=== PATIENT | male | born 1965 | race Caucasian/White ===

== ENCOUNTER → 2020-11-18 09:56 | Outpatient (BNVA) | payer OTHER, SELFPAY | PROVIDERS: Visit Provider Orthopaedic Surgery | DX: M17.11 Unilateral primary osteoarthritis, right knee (principal); M17.12 Unilateral primary osteoarthritis, left knee | CPT/HCPCS: 20610; 99202; J1040 ==

== ENCOUNTER → 2021-01-14 09:53 | Outpatient (BNVA) | payer OTHER, SELFPAY | PROVIDERS: PCP Internal Medicine; Visit Provider Orthopaedic Surgery | DX: Z01.812 Encounter for preprocedural laboratory examination (principal); Z01.810 Encounter for preprocedural cardiovascular examination ==

== ENCOUNTER 2021-02-11 12:57 | Outpatient (REF) | payer OTHER, SELFPAY ==
--- NOTE | ~2021-02-11 | XR_ITS ---
EXAMINATION: XR knee standing BI, XR knee LT 2V CLINICAL INFORMATION: Reason for Exam M25.561 - Pain in right knee COMPARISON: None available at the time of this dictation. TECHNIQUE: Bilateral frontal standing, left lateral and patella sunrise view. FINDINGS: BONES: No fracture or dislocation is present. JOINTS: Narrowing of joint spaces and developed osteophytes from the edges of articular surfaces suggest degenerative osteoarthritis. SOFT TISSUE: Normal XR/XR knee LT 2V IMPRESSION: Early advanced degenerative osteoarthritis involving medial more than lateral compartments left more than right knee. No significant knee joint effusion.
--- NOTE | ~2021-02-11 | XR_ITS ---
EXAMINATION: XR knee standing BI, XR knee LT 2V CLINICAL INFORMATION: Reason for Exam M25.561 - Pain in right knee COMPARISON: None available at the time of this dictation. TECHNIQUE: Bilateral frontal standing, left lateral and patella sunrise view. FINDINGS: BONES: No fracture or dislocation is present. JOINTS: Narrowing of joint spaces and developed osteophytes from the edges of articular surfaces suggest degenerative osteoarthritis. SOFT TISSUE: Normal XR/XR knee standing BI IMPRESSION: Early advanced degenerative osteoarthritis involving medial more than lateral compartments left more than right knee. No significant knee joint effusion.
== END 2021-02-11 12:58 | disposition home or self-care (01) ==
LOC: HO.HOSX 12:57
PROVIDERS: Visit Provider Physician Assistant
DX: M25.561 Pain in right knee (principal); M25.562 Pain in left knee; M17.0 Bilateral primary osteoarthritis of knee; E78.00 Pure hypercholesterolemia, unspecified; I10 Essential (primary) hypertension; E11.9 Type 2 diabetes mellitus without complications; Z91.030 Bee allergy status; Z87.891 Personal history of nicotine dependence
CPT/HCPCS: 73560; 73565; 99212

== ENCOUNTER 2021-02-13 11:00 | Outpatient (RCR) | payer OTHER, SELFPAY ==
--- NOTE | 2021-02-06 10:38 | MHC.PT.EP ---
[facility] [place] Office [place] Office [place] Office [address] Mily Mann [address] [phone] F: [phone] F: [phone] F: [phone] F: [phone] Physical Therapy Plan of Care Date of Evaluation: Date of Surgery: Diagnosis: prehab for OA L knee Assessment: 56 y/o male referred to PT with prehab for L knee OA. He is scheduled for L TKA 02/16/21. Currently he has difficulty with stairs, walking, and standing. Examination shows decreased knee AROM B, decreased strength, hypomobile patella, and impaired gait pattern. He would benefit from 1 more visit prior to his scheduled surgery in 10 days to review HEP, discuss PT expectations, and optimize functional mobility. Frequency and Duration: The patient will be seen 1x/1 week Short Term Goals: [facility] Goals: 1 visit: 1. I with HEP 2. Improve understanding of PT expectation for post-operative rehab Treatment Plan: Modalities to reduce pain, spasms and effusion. Manual therapy to restore motion and function. Therapeutic exercise to improve strength and flexibility. Neuromuscular re-education for posture and balance. Therapeutic activities to return to functional activities of daily living. Electronically signed by: Suad Hall PT Please sign and return to therapist. Thank you for your referral.
--- NOTE | 2021-02-13 11:24 | MHC.PT.DC ---
[facility] [place] Office [place] Office [place] Office [address] Mily Mann [address] [phone] F: [phone] F: [phone] F: [phone] F: [phone] Physical Therapy Discharge Report Diagnosis: prehab for OA L knee Date of Surgery: Date of Evaluation: 02/06/21 Date of Discharge: 02/13/21 Treatments to Date: 2 Cancellations to Date: 0 No Shows to Date: 0 Discharge Status: Independent with HEP Discharge Summary: Cues for eccentric control with SLR. We reviewed ice following surgery, elevation, and discussed stair management with up with the good and down with the bad. No adverse effects with exercises. D/c at this time as pt I with HEP and surgery scheduled in 3 days. Electronically signed by: Suad Hall PT Please sign and return to therapist. Thank you for your referral.
== END 2021-02-13 11:25 | disposition home or self-care (01) ==
LOC: HO.PTCHIC 11:00
PROVIDERS: PCP Internal Medicine; Visit Provider Orthopaedic Surgery
DX: M17.12 Unilateral primary osteoarthritis, left knee (principal)
CPT/HCPCS: 97110; 97161

== ENCOUNTER 2021-02-16 06:30 | Inpatient (IN) | payer OTHER, SELFPAY ==
--- NOTE | 2021-01-14 10:55 | ECG_ITS ---
Test Reason : PREOP Blood Pressure : / mmHG Vent. Rate : 064 BPM Atrial Rate : 064 BPM P-R Int : 140 ms QRS Dur : 100 ms QT Int : 412 ms P-R-T Axes : 039 032 040 degrees QTc Int : 425 ms Normal sinus rhythm Normal ECG When compared with ECG of 29-DEC-2011 20:09, No significant change was found Referred By: Olegario Instrsaqib Electronically Signed By:BETO CLINTON MD
[2021-01-14 11:47] LABS: MANUAL DIFF FLAG NO
[2021-01-14 11:54] LABS: Basophils Absolute Auto 0.1 X10*3/uL (0.0-0.2); Eosinophils Absolute Auto 0.1 X10*3/uL (0.0-0.4); Eosinophils Percent Auto 1.8 % (0-4); Hematocrit 46.1 % (42-52); Hemoglobin 15.3 g/dl (14.0-18.0); Imm Gran Abs Auto 0.01 X10*3/uL (0.00-0.03); Imm Gran Pct Auto 0.2 % (0.0-0.4); Lymphocytes Percent Auto 32.9 % (20-40); Mean Corpuscular HGB Conc 33.2 g/dl (31.0-36.0); Mean Corpuscular Hemoglobin 29.1 pg (27.0-33.0); Mean Corpuscular Volume 87.8 fL (80-98); Mean Platelet Volume 9.9 fL (9.4-12.4); Monocytes Absolute Auto 0.5 X10*3/uL (0.1-1.2); Monocytes Percent Auto 8.9 % (2-11); Neutrophils Absolute Auto 3.4 X10*3/uL (2.0-8.3); Neutrophils Percent Auto 55.2 % (45-73); Platelet Count 242 X10*3/uL (160-400); Red Blood Count 5.25 X10*6/uL (4.60-5.80); Red Cell Distribution Width 13.5 % (11.0-16.0); White Blood Count 6.1 X10*3/uL (4.8-10.8)
[2021-01-14 18:04] LABS: Anion Gap 11 (12-20); Blood Urea Nitrogen 14 mg/dL (9-16); Calcium 9.5 mg/dL (8.4-10.2); Carbon Dioxide 31 mmol/L (22-29); Chloride 103 mmol/L (96-108); Estimated Glomerular Filt Rate > 60; Glucose Random 81 mg/dL (60-115); Potassium 4.3 mmol/L (3.3-5.1); Sodium 141 mmol/L (135-145)
--- NOTE | 2021-02-12 10:06 | HO.ANESPROP2 ---
Documented by User: Dolores Walker 02/13/21 08:21 HPI - Anesthesia Eval Consult details Narrative: 56yo M for Left Knee Replacement Total prn opioids PCP cleared Pending: Type and Screen PMFSH Active Problems Active Problems: All Active Problems (Updated 02/11/21 @ 11:27 by Alyse Rushing) Primary osteoarthritis of right knee (Acute) Primary osteoarthritis of left knee (Acute) Past Medical History Medical History Bilateral primary osteoarthritis of knee Chronic pain syndrome Elevated cholesterol HTN (hypertension) Osteoarthritis Sleep apnea Type 2 diabetes mellitus Family History Family history of problems with anesthesia: No Surgical History Surgical History H/O bariatric surgery H/O colonoscopy Hx of appendectomy Hx of arthroscopic knee surgery Hx of foot surgery Hx of foot surgery Hx of hand surgery Hx of lumbar discectomy Hx of right inguinal hernia repair History of Problems with Anesthesia: No Social History Social History Are you a primary neurocritical care physician to a significant other at home: No Do you presently have visiting nurse or other home services: No Smoking Status: Former smoker Tobacco Type: Cigarette Years Smoked: 15 Smoked in Last 30 Days: No Smoking Quit Date: 2005 Use of substances other than those prescribed or required for medical reasons: No Have you been hit, kicked, punched, or otherwise hurt by someone within the past year? If so, by whom?: No Are you DNR?: No Advance Directives Information Provided: No Recently lost weight without trying: No Eating poorly because of decreased appetite: No Nutrition Risks: No Nutritional Risk Poor oral hygiene: No Current occupational status: unemployed Current occupation: Right Handed Narrative Narrative: No recent illness. No CP/SOB with minimal activity. Limited to pain. Meds Allergies Allergy/AdvReac Type Severity Reaction Status Date / Time bee pollen [BEE STINGS] Allergy Severe ANAPHYLACTIC Verified 02/16/21 06:58 SHOCK- CARRIES EPI PEN Home Medications Medication Instructions Recorded Confirmed Last Taken Type amitriptyline 25 mg tablet 25 mg PO BEDTIME 11/18/20 02/12/21 Unknown History citalopram 40 mg tablet 40 mg PO BEDTIME 11/18/20 02/12/21 Unknown History lisinopril 10 mg tablet 10 mg PO BEDTIME 11/18/20 02/12/21 Unknown History zolpidem 5 mg tablet 5 mg PO BEDTIME PRN 11/18/20 02/12/21 Unknown History epinephrine [EpiPen] 0.3 mg IM Q10M PRN 02/11/21 02/12/21 Unknown History tramadol 50 mg PO Q6H PRN 02/11/21 02/12/21 Unknown History atorvastatin 1 tab PO DAILY 02/16/21 02/16/21 Unknown History Exam Exam Date and Time: February 12, 2021 1006 Pertinent Lab Results Pertinent Lab Results: Lab Results 01/14/21 01/14/21 02/12/21 Range/Units 11:10 11:10 12:30 WBC 6.1 (4.8-10.8) X10*3/uL RBC 5.25 (4.60-5.80) X10*6/uL Hgb 15.3 (14.0-18.0) g/dl Hct 46.1 (42-52) % MCV 87.8 (80-98) fL MCH 29.1 (27.0-33.0) pg MCHC 33.2 (31.0-36.0) g/dl RDW 13.5 (11.0-16.0) % Plt Count 242 (160-400) X10*3/uL MPV 9.9 (9.4-12.4) fL Immature Gran % (Auto) 0.2 (0.0-0.4) % Neut % (Auto) 55.2 (45-73) % Lymph % (Auto) 32.9 (20-40) % [place] % (Auto) 8.9 (2-11) % Eos % (Auto) 1.8 (0-4) % Baso % (Auto) 1.0 (0-2) % Lymph # (Auto) 2.0 (1.2-4.9) X10*3/uL [place] # (Auto) 0.5 (0.1-1.2) X10*3/uL Eos # (Auto) 0.1 (0.0-0.4) X10*3/uL Baso # (Auto) 0.1 (0.0-0.2) X10*3/uL Abs Immat Gran (auto) 0.01 (0.00-0.03) X10*3/uL Absolute Neuts (auto) 3.4 (2.0-8.3) X10*3/uL Absolute Nucleated RBC 0.000 (0.0-0.012) X10*3/uL Nucleated RBC % (auto) 0.0 (0.0-0.2) /100WBC Sodium 141 (135-145) mmol/L Potassium 4.3 (3.3-5.1) mmol/L Chloride 103 (96-108) mmol/L Carbon Dioxide 31 H (22-29) mmol/L Anion Gap 11 L (12-20) BUN 14 (9-16) mg/dL Creatinine 0.73 (0.5-1.4) mg/dL Estim Creat Clear Calc TNP Estimated GFR > 60 Random Glucose 81 (60-115) mg/dL Calcium 9.5 (8.4-10.2) mg/dL Nasal Screen MRSA (PCR) NEGATIVE (Negative) Nasal S. aureus Screen POSITIVE A (Negative) Nasal MRSA/S.aureus Interp SEE NOTE Blood Type Antibody Screen 02/12/21 Range/Units 13:04 WBC (4.8-10.8) X10*3/uL RBC (4.60-5.80) X10*6/uL Hgb (14.0-18.0) g/dl Hct (42-52) % MCV (80-98) fL MCH (27.0-33.0) pg MCHC (31.0-36.0) g/dl RDW (11.0-16.0) % Plt Count (160-400) X10*3/uL MPV (9.4-12.4) fL Immature Gran % (Auto) (0.0-0.4) % Neut % (Auto) (45-73) % Lymph % (Auto) (20-40) % [place] % (Auto) (2-11) % Eos % (Auto) (0-4) % Baso % (Auto) (0-2) % Lymph # (Auto) (1.2-4.9) X10*3/uL [place] # (Auto) (0.1-1.2) X10*3/uL Eos # (Auto) (0.0-0.4) X10*3/uL Baso # (Auto) (0.0-0.2) X10*3/uL Abs Immat Gran (auto) (0.00-0.03) X10*3/uL Absolute Neuts (auto) (2.0-8.3) X10*3/uL Absolute Nucleated RBC (0.0-0.012) X10*3/uL Nucleated RBC % (auto) (0.0-0.2) /100WBC Sodium (135-145) mmol/L Potassium (3.3-5.1) mmol/L Chloride (96-108) mmol/L Carbon Dioxide (22-29) mmol/L Anion Gap (12-20) BUN (9-16) mg/dL Creatinine (0.5-1.4) mg/dL Estim Creat Clear Calc Estimated GFR Random Glucose (60-115) mg/dL Calcium (8.4-10.2) mg/dL Nasal Screen MRSA (PCR) (Negative) Nasal S. aureus Screen (Negative) Nasal MRSA/S.aureus Interp Blood Type O Positive Antibody Screen NEGATIVE Narrative Narrative: EKG 01/2021 Vent. Rate : 064 BPM Atrial Rate : 064 BPM P-R Int : 140 ms QRS Dur : 100 ms QT Int : 412 ms P-R-T Axes : 039 032 040 degrees QTc Int : 425 ms Normal sinus rhythm Normal ECG When compared with ECG of 29-DEC-2011 20:09, No significant change was found Airway Mallampati Class: III TM Dist: >3cm Neck ROM: Full Loose/Missing/Broken Teeth: Yes (Missing molars) Heart: RRR Lungs: CTAB Assessment and Plan Assessment Anesthesia Assessment: Anesthesia Plan Discussed and PAT Visit Documented by User: Pamela Olvera 02/16/21 07:07 [facility] Past Medical History Medical History Bilateral primary osteoarthritis of knee Chronic pain syndrome Elevated cholesterol HTN (hypertension) Osteoarthritis Sleep apnea Type 2 diabetes mellitus Surgical History Surgical History H/O bariatric surgery H/O colonoscopy Hx of appendectomy Hx of arthroscopic knee surgery Hx of foot surgery Hx of foot surgery Hx of hand surgery Hx of lumbar discectomy Hx of right inguinal hernia repair Social History Social History Are you a primary neurocritical care physician to a significant other at home: No Do you presently have visiting nurse or other home services: No Smoking Status: Former smoker Tobacco Type: Cigarette Years Smoked: 15 Smoked in Last 30 Days: No Smoking Quit Date: 2005 Use of substances other than those prescribed or required for medical reasons: No Have you been hit, kicked, punched, or otherwise hurt by someone within the past year? If so, by whom?: No Are you DNR?: No Advance Directives Information Provided: No Recently lost weight without trying: No Eating poorly because of decreased appetite: No Nutrition Risks: No Nutritional Risk Poor oral hygiene: No Current occupational status: unemployed Current occupation: Right Handed Meds Allergies Allergy/AdvReac Type Severity Reaction Status Date / Time bee pollen [BEE STINGS] Allergy Severe ANAPHYLACTIC Verified 02/16/21 06:58 SHOCK- CARRIES EPI PEN Home Medications Medication Instructions Recorded Confirmed Last Taken Type amitriptyline 25 mg tablet 25 mg PO BEDTIME 11/18/20 02/12/21 Unknown History citalopram 40 mg tablet 40 mg PO BEDTIME 11/18/20 02/12/21 Unknown History lisinopril 10 mg tablet 10 mg PO BEDTIME 11/18/20 02/12/21 Unknown History zolpidem 5 mg tablet 5 mg PO BEDTIME PRN 11/18/20 02/12/21 Unknown History epinephrine [EpiPen] 0.3 mg IM Q10M PRN 02/11/21 02/12/21 Unknown History tramadol 50 mg PO Q6H PRN 02/11/21 02/12/21 Unknown History atorvastatin 1 tab PO DAILY 02/16/21 02/16/21 Unknown History Assessment and Plan Assessment Anesthesia Assessment: Anesthesia Plan Discussed and Chart Reviewed Final Anesthetic Review NPO: Yes ASA Class: III Final Preanesthetic Review: No Changes in Pt Med Stat, Meds/Allgs Chart Reviewed, Consent Obtained/Reviewed and Anes Risks/Benef Reviewed Patient Risk: Intermediate Procedure Risk: Intermediate Assessment/Block/Sedation in SS: Assess/Block/Sedation-SS Anesthetic Plan Anesthetic Plan: Spinal Disposition: Standard PACU
[2021-02-12 11:59] VITALS: BP 121/71; PULSE 68; RESP 18; O2SAT 97; BMI 43.0
[2021-02-12 15:26] LABS: MRSA Nasal PCR NEGATIVE (Negative); SA Nasal PCR POSITIVE (Negative)
[2021-02-16] VITALS (15 sets, daily range): BP systolic 100–121; BP diastolic 53–66; PULSE 55–84; RESP 14–20; TEMP 36–36.7; O2SAT 94–99
--- NOTE | ~2021-02-16 | XR_ITS ---
EXAMINATION: XR KNEE, LEFT CLINICAL INFORMATION: Postop COMPARISON: Previous x-ray 02/11/2021 TECHNIQUE: Four views of the left knee. FINDINGS: There is a new 3 component left knee replacement in satisfactory position. No fracture or dislocation is seen. There is a joint effusion. There are postoperative changes to the soft tissues. XR/XR knee LT 2V IMPRESSION: Satisfactory appearance of left knee replacement.
[2021-02-16] MEDS: Gabapentin 600 MG TABLET PO (06:52)
[2021-02-16 07:08] LABS: COVID-19 Test Negative (Negative)
--- NOTE | 2021-02-16 07:10 | HO.ANESPROP2 ---
PENDING SALE TO [facility] Active Problems Active Problems: All Active Problems (Updated 02/12/21 @ 12:10 by Alyse Rushing) Primary osteoarthritis of right knee (Acute) Primary osteoarthritis of left knee (Acute) Past Medical History Medical History Bilateral primary osteoarthritis of knee Chronic pain syndrome Elevated cholesterol HTN (hypertension) Osteoarthritis Sleep apnea Type 2 diabetes mellitus Family History Family history of problems with anesthesia: No Surgical History Surgical History H/O bariatric surgery H/O colonoscopy Hx of appendectomy Hx of arthroscopic knee surgery Hx of foot surgery Hx of foot surgery Hx of hand surgery Hx of lumbar discectomy Hx of right inguinal hernia repair History of Problems with Anesthesia: No Social History Social History Are you a primary patient care manager to a significant other at home: No Do you presently have visiting nurse or other home services: No Smoking Status: Former smoker Tobacco Type: Cigarette Years Smoked: 15 Smoked in Last 30 Days: No Smoking Quit Date: 2005 Use of substances other than those prescribed or required for medical reasons: No Have you been hit, kicked, punched, or otherwise hurt by someone within the past year? If so, by whom?: No Are you DNR?: No Advance Directives Information Provided: No Recently lost weight without trying: No Eating poorly because of decreased appetite: No Nutrition Risks: No Nutritional Risk Poor oral hygiene: No Current occupational status: unemployed Current occupation: Right Handed Meds Allergies Allergy/AdvReac Type Severity Reaction Status Date / Time bee pollen [BEE STINGS] Allergy Severe ANAPHYLACTIC Verified 02/16/21 06:58 SHOCK- CARRIES EPI PEN Active Medications: Current Medications Generic Name Dose Route Start Last Admin Trade Name Freq PRN Reason Stop Dose Admin Lactated Ringer's 1,000 mls @ 100 mls/hr 02/16/21 06:30 Lr IVCONT .Q10H [facility] Home Medications Medication Instructions Recorded Confirmed Last Taken Type amitriptyline 25 mg tablet 25 mg PO BEDTIME 11/18/20 02/12/21 Unknown History citalopram 40 mg tablet 40 mg PO BEDTIME 11/18/20 02/12/21 Unknown History lisinopril 10 mg tablet 10 mg PO BEDTIME 11/18/20 02/12/21 Unknown History zolpidem 5 mg tablet 5 mg PO BEDTIME PRN 11/18/20 02/12/21 Unknown History epinephrine [EpiPen] 0.3 mg IM Q10M PRN 02/11/21 02/12/21 Unknown History tramadol 50 mg PO Q6H PRN 02/11/21 02/12/21 Unknown History atorvastatin 1 tab PO DAILY 02/16/21 02/16/21 Unknown History Exam Exam Date and Time: February 16, 2021 0710 Height,Weight and Vital Signs: Height 6 ft 3 in Weight 156.2 kg Last Vital Signs Temp 97.3 F 02/16/21 06:55 Pulse 65 02/16/21 06:55 Resp 16 02/16/21 06:55 BP 119/65 02/16/21 06:55 Pulse Ox 97 02/16/21 06:55 Pertinent Lab Results Pertinent Lab Results: Laboratory Tests 01/14/21 01/14/21 02/12/21 11:10 11:10 12:30 WBC 6.1 RBC 5.25 Hgb 15.3 Hct 46.1 MCV 87.8 MCH 29.1 MCHC 33.2 RDW 13.5 Plt Count 242 MPV 9.9 Immature Gran % (Auto) 0.2 Neut % (Auto) 55.2 Lymph % (Auto) 32.9 [place] % (Auto) 8.9 Eos % (Auto) 1.8 Baso % (Auto) 1.0 Lymph # (Auto) 2.0 [place] # (Auto) 0.5 Eos # (Auto) 0.1 Baso # (Auto) 0.1 Abs Immat Gran (auto) 0.01 Absolute Neuts (auto) 3.4 Absolute Nucleated RBC 0.000 Nucleated RBC % (auto) 0.0 Sodium 141 Potassium 4.3 Chloride 103 Carbon Dioxide 31 H Anion Gap 11 L BUN 14 Creatinine 0.73 Estim Creat Clear Calc TNP Estimated GFR > 60 Random Glucose 81 Calcium 9.5 Nasal Screen MRSA (PCR) NEGATIVE Nasal S. aureus Screen POSITIVE A Nasal MRSA/S.aureus Interp SEE NOTE COVID-19 (CALE) COVID-19 Clin Com Blood Type Antibody Screen 02/12/21 02/16/21 13:04 06:38 WBC RBC Hgb Hct MCV MCH MCHC RDW Plt Count MPV Immature Gran % (Auto) Neut % (Auto) Lymph % (Auto) [place] % (Auto) Eos % (Auto) Baso % (Auto) Lymph # (Auto) [place] # (Auto) Eos # (Auto) Baso # (Auto) Abs Immat Gran (auto) Absolute Neuts (auto) Absolute Nucleated RBC Nucleated RBC % (auto) Sodium Potassium Chloride Carbon Dioxide Anion Gap BUN Creatinine Estim Creat Clear Calc Estimated GFR Random Glucose Calcium Nasal Screen MRSA (PCR) Nasal S. aureus Screen Nasal MRSA/S.aureus Interp COVID-19 (CALE) Negative COVID-19 Clin Com See Note Blood Type O Positive Antibody Screen NEGATIVE
--- NOTE | 2021-02-16 07:13 | HO.ANESPROP2 ---
[facility] Active Problems Active Problems: All Active Problems (Updated 02/12/21 @ 12:10 by Alyse Rushing) Primary osteoarthritis of right knee (Acute) Primary osteoarthritis of left knee (Acute) Past Medical History Medical History Bilateral primary osteoarthritis of knee Chronic pain syndrome Elevated cholesterol HTN (hypertension) Osteoarthritis Sleep apnea Type 2 diabetes mellitus Family History Family history of problems with anesthesia: No Surgical History Surgical History H/O bariatric surgery H/O colonoscopy Hx of appendectomy Hx of arthroscopic knee surgery Hx of foot surgery Hx of foot surgery Hx of hand surgery Hx of lumbar discectomy Hx of right inguinal hernia repair History of Problems with Anesthesia: No Social History Social History Are you a primary vocational childcare teacher to a significant other at home: No Do you presently have visiting nurse or other home services: No Smoking Status: Former smoker Tobacco Type: Cigarette Years Smoked: 15 Smoked in Last 30 Days: No Smoking Quit Date: 2005 Use of substances other than those prescribed or required for medical reasons: No Have you been hit, kicked, punched, or otherwise hurt by someone within the past year? If so, by whom?: No Are you DNR?: No Advance Directives Information Provided: No Recently lost weight without trying: No Eating poorly because of decreased appetite: No Nutrition Risks: No Nutritional Risk Poor oral hygiene: No Current occupational status: unemployed Current occupation: Right Handed Meds Allergies Allergy/AdvReac Type Severity Reaction Status Date / Time bee pollen [BEE STINGS] Allergy Severe ANAPHYLACTIC Verified 02/16/21 06:58 SHOCK- CARRIES EPI PEN Active Medications: Current Medications Generic Name Dose Route Start Last Admin Trade Name Freq PRN Reason Stop Dose Admin Lactated Ringer's 1,000 mls @ 100 mls/hr 02/16/21 06:30 Lr IVCONT .Q10H [facility] Home Medications Medication Instructions Recorded Confirmed Last Taken Type amitriptyline 25 mg tablet 25 mg PO BEDTIME 11/18/20 02/12/21 Unknown History citalopram 40 mg tablet 40 mg PO BEDTIME 11/18/20 02/12/21 Unknown History lisinopril 10 mg tablet 10 mg PO BEDTIME 11/18/20 02/12/21 Unknown History zolpidem 5 mg tablet 5 mg PO BEDTIME PRN 11/18/20 02/12/21 Unknown History epinephrine [EpiPen] 0.3 mg IM Q10M PRN 02/11/21 02/12/21 Unknown History tramadol 50 mg PO Q6H PRN 02/11/21 02/12/21 Unknown History atorvastatin 1 tab PO DAILY 02/16/21 02/16/21 Unknown History Exam Exam Date and Time: February 16, 2021712 Height,Weight and Vital Signs: Height 6 ft 3 in Weight 156.2 kg Last Vital Signs Temp 97.3 F 02/16/21 06:55 Pulse 65 02/16/21 06:55 Resp 16 02/16/21 06:55 BP 119/65 02/16/21 06:55 Pulse Ox 97 02/16/21 06:55 Pertinent Lab Results Pertinent Lab Results: Laboratory Tests 01/14/21 01/14/21 02/12/21 11:10 11:10 12:30 WBC 6.1 RBC 5.25 Hgb 15.3 Hct 46.1 MCV 87.8 MCH 29.1 MCHC 33.2 RDW 13.5 Plt Count 242 MPV 9.9 Immature Gran % (Auto) 0.2 Neut % (Auto) 55.2 Lymph % (Auto) 32.9 [place] % (Auto) 8.9 Eos % (Auto) 1.8 Baso % (Auto) 1.0 Lymph # (Auto) 2.0 [place] # (Auto) 0.5 Eos # (Auto) 0.1 Baso # (Auto) 0.1 Abs Immat Gran (auto) 0.01 Absolute Neuts (auto) 3.4 Absolute Nucleated RBC 0.000 Nucleated RBC % (auto) 0.0 Sodium 141 Potassium 4.3 Chloride 103 Carbon Dioxide 31 H Anion Gap 11 L BUN 14 Creatinine 0.73 Estim Creat Clear Calc TNP Estimated GFR > 60 Random Glucose 81 Calcium 9.5 Nasal Screen MRSA (PCR) NEGATIVE Nasal S. aureus Screen POSITIVE A Nasal MRSA/S.aureus Interp SEE NOTE COVID-19 (CALE) COVID-19 Clin Com Blood Type Antibody Screen 02/12/21 02/16/21 13:04 06:38 WBC RBC Hgb Hct MCV MCH MCHC RDW Plt Count MPV Immature Gran % (Auto) Neut % (Auto) Lymph % (Auto) [place] % (Auto) Eos % (Auto) Baso % (Auto) Lymph # (Auto) [place] # (Auto) Eos # (Auto) Baso # (Auto) Abs Immat Gran (auto) Absolute Neuts (auto) Absolute Nucleated RBC Nucleated RBC % (auto) Sodium Potassium Chloride Carbon Dioxide Anion Gap BUN Creatinine Estim Creat Clear Calc Estimated GFR Random Glucose Calcium Nasal Screen MRSA (PCR) Nasal S. aureus Screen Nasal MRSA/S.aureus Interp COVID-19 (CALE) Negative COVID-19 Clin Com See Note Blood Type O Positive Antibody Screen NEGATIVE
[2021-02-16] MEDS: Lactated Ringers 1,000 ML 100 ML IVCONT ×3 (07:17→20:31)
[2021-02-16 07:59] LABS: Glucose, Whole Blood 92 mg/dL (60-115)
--- NOTE | 2021-02-16 11:23 | PC.NURSE ---
1100 BED ASSIGNMENT RECEIVED REPORT FAXED TO FLOOR AND REPORT TO GERHARD ALCALA PT TO FLOOR ACCOMP RN AND ARNAUD
[2021-02-16] MEDS: oxyCODONE HCl Immed Release 5 MG TABLET 10 MG PO ×2 (11:49→18:36)
[2021-02-16] MEDS: Ketorolac Tromethamine 15 MG/ML VIAL IVPUSH ×2 (11:50→18:27)
--- NOTE | 2021-02-16 12:08 | P.OP_ITS ---
Operative Note Operative Note Date of Service: 02/16/21 Narrative: SURGEON: Dr Olegario Ch) Renetta CHU BACKEND PYTHON DEVELOPER: Mihai Montez PAC PREOP DIAGNOSIS: Osteoarthritis left knee POSTOP DIAGNOSIS: Same OPERATIVE PROCEDURE: Left Total knee arthroplasty - KRYSTLE NEXGEN CRFlex size G left femur, 7 x 10 mm monoblock tibial component, 38 mm Mar block tibial component CLINICAL NOTE: This individual comes in today in regards to their knee. Has osteoarthritis. Has failed non operative management. Therefore after explaining the risks benefits and alternatives and answering all the questions it was mutually agreed upon care following procedure OPERATIVE DETAILS With of regional and spinal anesthetic the patient was placed supine on the operating table. Pneumatic tourniquet cuff was placed around the upper thigh and inflated to 300 mm of mercury at the beginning of the case. The leg was then prepped and draped in standard fashion with the leg free. Surgical time-out was then performed. The patient was identified. Procedure confirmed. Site confirmed. Medical and allergy history reviewed. Preoperative antibiotics were given. Standard DVT prophylaxis in place. Tranexamic acid was given as well. All other items were discussed and agreed upon. Standard small midline incision was made. Was taken down through the subcutaneous tissues. Hemostasis achieved along the way using electrocautery. This brought us to the extensor mechanism where a medial parapatellar arthrotomy in a subvastus technique was performed. The patella was retracted into the lateral gutter. The soft tissues were elevated from the anterior aspect of the femur. At the level of the tibia the soft tissue elevated medially excising a portion of the meniscus as well as protecting the medial-sided soft tissues. Similarly on the lateral side a portion of the fat pad, portion of the meniscus were excised. The lateral-sided soft tissues were elevated protecting them as well. The ACL was resected. We turned our attention then to the femur. Standard ex to medullary hole was established. The cutting guide was set for 5 degrees of valgus with a standard cut. It was held in place with pins and the surface resected flat. The sizing guide was then used. The femur was sized to a size G. The 3 degree external rotation pins were set. The all in 1 cutting guide for this size was placed the pins and centered over the distal cut. Following this the anterior and anterior chamfer cuts, the posterior and pos terior chamfer cuts, the patellar recess cuts, as well as the lug holes were made. The guide was removed. The bony fragments removed and we turned our attention to the tibia. The remainder of the medial and lateral menisci were excised. The extramedullary guide was then used in standard fashion referencing the tibial tubercle, the subcutaneous border of the tibia, and the middle of the ankle. The slope was then set. The cut was referenced from the more worn size for a minimal cut. The surface was then resected. The bony segment removed. The tibia was then trialed to a size 7. It was aligned as the extra medullary guide had been. A 10 mm trial insert was put into place. The femoral trial was also applied with good fit. The alignment of the leg was excellent. The knee was then placed through a range of motion which demonstrated full extension full flexion stable medially and laterally at 0, 30, 60, and 90 degrees of flexion. Patella tracked centrally. Turning our attention to the patella. The soft tissues were elevated circumferentially. The surface was resected flat. It sized to a 38 mm. A lug hole was drilled in standard The trial component was put into place with excellent fit. It tracked nicely through flexion extension. Therefore the trial sizes were appropriate and therefore the permanent components were selected and brought up onto the table. The trial components were then all removed after the peg holes for the tibia were made. The tourniquet was then let down with total tourniquet time of 63 minutes. The area of the lateral geniculate artery was identified and cauterized. Any excessive bleeding points were also cauterized. The knee was then thoroughly irrigated. The permanent components were brought up onto the table. The tibia followed by the femur followed by the patella were all Press- Fit into place. The knee was placed through range of motion. It had full flexion and extension. He was stable medial laterally in all positions. Patella tracked centrally. And therefore we proceeded to closure. Wound was thoroughly irrigated. The extensor mechanism was closed with #2 Quill suture. The skin was approximated with 2-0 Polysorb suture. The skin was closed with lamonte. Sterile dressing was then applied. The patient was then transferred supine to the room bed and taken to the recovery room in good condition. Intraoperatively a 2nd unit a transit make acid was given at the time of closure. There was approximately 150 cc a blood loss. No intraop transfusions or complications. .
[2021-02-16] MEDS: Morphine Sulfate 4 MG/ML CARTRIDGE 3 MG IVPUSH ×2 (14:12→23:17)
[2021-02-16] MEDS: ceFAZolin Sodium/Dextrose,Iso 2 GM/50 ML PIGGYBACK IV (14:12)
[2021-02-16] MEDS: ondansetron HCL 4 MG/2 ML VIAL IVPUSH (15:53)
--- NOTE | 2021-02-16 16:42 | PM.IMCN ---
History of Present Illness Data of Consult Service Date: 02/16/21 Requesting physician: Olegario Jackson Primary Care Provider: Brennan Garza MD HPI Reason for consult: management of medical comorbidities 56yo M with morbid obesity s/p sleeve gastrectomy, HTN, HLD, DM2 that resolved after bariatric surgery, CLARITA on CPAP, and depression/anxiety who underwent L TKA today for OA. He denies hx of CAD/LA/CVA or chronic lung disease. Currently he has postoperative pain and some nausea after getting IV morphine. He denies chest pain or dyspnea. No abdominal pain. Review of Systems Review of Systems: Yes all other systems are reviewed and are negative [facility] Medical History (Updated 02/16/21 @ 16:45 by Irlanda Coppola MD) Bilateral primary osteoarthritis of knee Chronic pain syndrome Elevated cholesterol HTN (hypertension) Osteoarthritis Sleep apnea Type 2 diabetes mellitus Pertinent family history: no FHx of VTE Surgical History H/O bariatric surgery H/O colonoscopy Hx of appendectomy Hx of arthroscopic knee surgery Hx of foot surgery Hx of foot surgery Hx of hand surgery Hx of lumbar discectomy Hx of right inguinal hernia repair Social History Household Members: Family Housing: House Are you a primary clinical care manager to a significant other at home: No Do you presently have visiting nurse or other home services: No Smoking Status: Former smoker Tobacco Type: Cigarette Years Smoked: 15 Smoked in Last 30 Days: No Smoking Quit Date: 2005 Use of substances other than those prescribed or required for medical reasons: No Have you been hit, kicked, punched, or otherwise hurt by someone within the past year? If so, by whom?: No Do you feel safe in your current relationship?: No Current Relationship Is there a partner from a previous relationship who is making you feel unsafe now?: No Are you made to feel afraid or neglected: No Are you DNR?: No Advance Directives Information Provided: No Do you have thoughts of harming others: None Do you have a plan to hurt others: No Plan Recently lost weight without trying: No Eating poorly because of decreased appetite: No Nutrition Risks: No Nutritional Risk Poor oral hygiene: No Current occupational status: unemployed Current occupation: Right Handed Meds Allergies Allergy/AdvReac Type Severity Reaction Status Date / Time bee pollen [BEE STINGS] Allergy Severe ANAPHYLACTIC Verified 02/16/21 06:58 SHOCK- CARRIES EPI PEN Active Medications: Current Medications Generic Name Dose Route Start Last Admin Trade Name Freq PRN Reason Stop Dose Admin Acetaminophen 650 mg 02/16/21 11:23 Acetaminophen 325 Mg Tablet PO Q6H PRN Pain, Mild (Pain Scale 1-3) Amitriptyline HCl 25 mg 02/16/21 21:00 Amitriptyline Hcl 25 Mg Tablet PO BEDTIME [facility] Aspirin 325 mg 02/17/21 22:00 Aspirin 325 Mg Tablet PO BID [facility] Atorvastatin Calcium 20 mg 02/17/21 09:00 Atorvastatin Calcium 20 Mg Tablet PO DAILY [facility] Lactated Ringer's 1,000 mls @ 100 mls/hr 02/16/21 06:30 02/16/21 16:35 Lr IVCONT Not Given .Q10H [facility] Ketorolac Tromethamine 15 mg 02/16/21 12:00 02/16/21 11:50 Ketorolac Tromethamine 15 Mg/Ml Vial IVPUSH 15 mg Q6H [facility] Administration Lisinopril 10 mg 02/16/21 21:00 Lisinopril 10 Mg Tablet PO BEDTIME [facility] Protocol Morphine Sulfate 3 mg 02/16/21 11:23 02/16/21 14:12 Morphine Sulfate 4 Mg/Ml Cartridge IVPUSH 3 mg Q2H PRN Administration Pain, Severe (Pain Scale 7-10) Naloxone HCl 0.2 mg 02/16/21 11:23 Naloxone Hcl 0.4 Mg/Ml Vial IVPUSH Q2M PRN Excessive sedation or RR < 8 Ondansetron HCl 4 mg 02/16/21 11:23 02/16/21 15:53 Ondansetron Hcl 4 Mg/2 Ml Vial IVPUSH 4 mg Q8H PRN Administration Nausea and Vomiting Oxycodone HCl 10 mg 02/16/21 12:00 02/16/21 11:49 Oxycodone Hcl Immed Release 5 Mg Tablet PO 10 mg Q6H [facility] Administration Sodium Chloride 3 ml 02/16/21 16:00 02/16/21 14:52 0.9 % Sodium Chloride Flush 3 Ml Syringe IVFLUSH Not Given QSHIFT [facility] Zolpidem Tartrate 5 mg 02/16/21 16:40 Zolpidem Tartrate 5 Mg Tablet PO BEDTIME PRN Insomnia Home Medications Medication Instructions Recorded Confirmed Last Taken Type amitriptyline 25 mg tablet 25 mg PO BEDTIME 11/18/20 02/12/21 Unknown History citalopram 40 mg tablet 40 mg PO BEDTIME 11/18/20 02/12/21 Unknown History lisinopril 10 mg tablet 10 mg PO BEDTIME 11/18/20 02/12/21 Unknown History zolpidem 5 mg tablet 5 mg PO BEDTIME PRN 11/18/20 02/12/21 Unknown History epinephrine [EpiPen] 0.3 mg IM Q10M PRN 02/11/21 02/12/21 Unknown History tramadol 50 mg PO Q6H PRN 02/11/21 02/12/21 Unknown History atorvastatin 1 tab PO DAILY 02/16/21 02/16/21 Unknown History Physical Exam Vital Signs and Narrative: Vital Signs: Last Vital Signs Temp 96.8 F 02/16/21 15:53 Pulse 66 02/16/21 15:53 Resp 20 02/16/21 15:53 BP 104/58 L 02/16/21 15:53 Pulse Ox 96 02/16/21 15:53 Body Mass Index 43.0 Gen: in no acute distress HEENT: sclera anicteric, moist mucus membranes Neck: supple Lungs: clear to auscultation bilaterally Heart: regular rate and rhythm, no murmurs Abd: soft, obese, non-tender, non-distended Ext: no edema, L knee swollen and in dressing Skin: warm/well-perfused Neuro: alert and oriented x3, no focal findings Psych: appropriate affect Results Labs CBC and Chem 7: 01/14/21 11:10 01/14/21 11:10 Labs: Laboratory Results - last 24 hr 02/16/21 02/16/21 06:38 07:03 POC Glucose 92 COVID-19 ([facility]) Negative COVID-19 Clin Com See Note Assessment and Plan (1) HTN (hypertension): Status: Acute 56yo M with morbid obesity s/p sleeve gastrectomy, HTN, HLD, DM2 that resolved after bariatric surgery, CLARITA on CPAP, and depression/anxiety POD #0 L TKA for OA. Medicine consultation for management of comorbid problems # HTN - resume lisinopril # depression/anxiety - continue citalopram [hospital formulary substitute escitalopram], amitriptyline, prn zolpidem # HLD - continue atorvastatin # morbid obesity - lost 70 lb after sleeve gastrectomy in July # CLARITA - CPAP at night # hx DM2 - resolved after sleeve gastrectomy # VTE ppx - full-dose ASA bid as per orthopedics team; will need 28+d of extended ppx # postop TKA - analgesia, PT, dispo planning as per orthopedics team Thank you for this consult. We will follow along with you.
[2021-02-16] MEDS: Amitriptyline HCl 25 MG TABLET PO (20:27)
[2021-02-16] MEDS: Zolpidem Tartrate 5 MG TABLET PO (20:27)
[2021-02-16] MEDS: lisinopriL 10 MG TABLET PO (20:27)
[2021-02-17] VITALS (9 sets, daily range): BP systolic 101–115; BP diastolic 47–64; PULSE 70–83; RESP 19–20; TEMP 36.4–37.4; O2SAT 95–97
[2021-02-17] MEDS: Ketorolac Tromethamine 15 MG/ML VIAL IVPUSH ×5 (00:04→23:35)
[2021-02-17] MEDS: oxyCODONE HCl Immed Release 5 MG TABLET 10 MG PO ×5 (00:05→23:36)
[2021-02-17] MEDS: Lactated Ringers 1,000 ML 100 ML IVCONT (06:04)
[2021-02-17 06:43] LABS: Hematocrit 33.2 % (42-52); Hemoglobin 11.2 g/dl (14.0-18.0)
[2021-02-17] MEDS: Escitalopram Oxalate 20 MG TABLET PO (08:18)
[2021-02-17] MEDS: Atorvastatin Calcium 20 MG TABLET PO (08:18)
--- NOTE | 2021-02-17 08:30 | HO.POSTANES ---
Post Anesthesia Evaluation Post Anesthesia Evaluation Vital Signs: Vital Signs Temp Pulse Resp BP Pulse Ox 02/17/21 08:21 74 109/55 L 95 02/17/21 08:00 98.2 F 74 19 109/55 L 95 02/17/21 07:17 98.2 F 74 19 109/55 L 95 02/17/21 03:53 98.0 F 70 20 111/64 96 02/16/21 23:28 97.7 F 71 20 113/54 L 96 02/16/21 21:21 18 Anesthesia: Spinal Mental Status: Awake Pain Control: Satisfactory Nausea/Vomiting: None Hydration: Adequate Anesthesia-Related Issues: No Anes. Related Issues
[2021-02-17] MEDS: Morphine Sulfate 4 MG/ML CARTRIDGE 3 MG IVPUSH ×3 (08:38→19:58)
--- NOTE | 2021-02-17 09:59 | PM.PNORT ---
Subjective Subjective Date of Service: 02/17/21 Interval history: POD 1 s/p LT TKA No overnight events, resting in bed c/o pain in the left knee has been out of bed to use bathroom, denies cp,sob,dizziness Physical Exam Vital Signs: Vital Signs: Last Vital Signs Temp 98.2 F 02/17/21 08:00 Pulse 74 02/17/21 08:21 Resp 19 02/17/21 08:00 BP 109/55 L 02/17/21 08:21 Pulse Ox 95 02/17/21 08:21 Body Mass Index 43.0 Const: General: cooperative, healthy appearing and no acute distress Resp: Effort & Inspection: normal respiratory effort and able to speak in complete sentences Cardio: Rate: regular rate Peripheral pulses: Peripheral pulses 2+ throughout GI: Palpation (GI): Soft to palpation Skin: General skin exam: no rashes or lesions noted Extrem: Other: left knee bandage clean dry and intact. [place] intact. No erythema or joint effusion. Calf supple nontender. Neurovascularly intact. Progress Note: A&P Assessment and plan (1) Status post total left knee replacement: Status: Acute Assessment and Plan: Continue pain mgmnt Begin asa for dvt ppx begin PT for LT TKA Dispo planning-Pending PT eval, pain mgmnt Fall Risk Details Current Medications: Current Medications Generic Name Dose Route Start Last Admin Trade Name Freq PRN Reason Stop Dose Admin Acetaminophen 650 mg 02/16/21 11:23 Acetaminophen 325 Mg Tablet PO Q6H PRN Pain, Mild (Pain Scale 1-3) Amitriptyline HCl 25 mg 02/16/21 21:00 02/16/21 20:27 Amitriptyline Hcl 25 Mg Tablet PO 25 mg BEDTIME [facility] Administration Aspirin 325 mg 02/17/21 22:00 Aspirin 325 Mg Tablet PO BID [facility] Atorvastatin Calcium 20 mg 02/17/21 09:00 02/17/21 08:18 Atorvastatin Calcium 20 Mg Tablet PO 20 mg DAILY [facility] Administration Escitalopram Oxalate 20 mg 02/17/21 09:00 02/17/21 08:18 Escitalopram Oxalate 20 Mg Tablet PO 20 mg DAILY [facility] Administration Lactated Ringer's 1,000 mls @ 100 mls/hr 02/16/21 06:30 02/17/21 06:04 Lr IVCONT 100 mls/hr .Q10H [facility] Administration Promethazine HCl 6.25 mg/ 50.25 mls @ 201 mls/hr 02/16/21 18:15 02/16/21 18:47 Sodium Chloride IV Infused Q4H PRN Infusion Nausea Ketorolac Tromethamine 15 mg 02/16/21 12:00 02/17/21 06:03 Ketorolac Tromethamine 15 Mg/Ml Vial IVPUSH 15 mg Q6H [facility] Administration Lisinopril 10 mg 02/16/21 21:00 02/16/21 20:27 Lisinopril 10 Mg Tablet PO 10 mg BEDTIME [facility] Administration Protocol Morphine Sulfate 3 mg 02/16/21 11:23 02/17/21 08:38 Morphine Sulfate 4 Mg/Ml Cartridge IVPUSH 3 mg Q2H PRN Administration Pain, Severe (Pain Scale 7-10) Naloxone HCl 0.2 mg 02/16/21 11:23 Naloxone Hcl 0.4 Mg/Ml Vial IVPUSH Q2M PRN Excessive sedation or RR < 8 Ondansetron HCl 4 mg 02/16/21 11:23 02/16/21 15:53 Ondansetron Hcl 4 Mg/2 Ml Vial IVPUSH 4 mg Q8H PRN Administration Nausea and Vomiting Oxycodone HCl 10 mg 02/16/21 12:00 02/17/21 06:03 Oxycodone Hcl Immed Release 5 Mg Tablet PO 10 mg Q6H [facility] Administration Sodium Chloride 3 ml 02/16/21 16:00 02/17/21 07:05 0.9 % Sodium Chloride Flush 3 Ml Syringe IVFLUSH Not Given QSHIFT [facility] Zolpidem Tartrate 5 mg 02/16/21 16:40 02/16/21 20:27 Zolpidem Tartrate 5 Mg Tablet PO 5 mg BEDTIME PRN Administration Insomnia Time Spent With Patient Time: Total time spent is greater than 50% in coordination of care (as documented) at patient's floor/unit and/or counseling patient: Time with patient: less than 15 minutes
--- NOTE | 2021-02-17 10:09 | MHC.CM.PN ---
NURSE CARE MANAGEMENT. ELECTRONIC MEDICAL RECORD REVIEWED WITH STAFF NURSE. MET WITH PATIENT EXPLAINED THE ROLE OF THE NURSE CARE MANGER IN THE TRANSITION FROM THE HOSPITAL TO HOME, EDUCATED ABOUT THE IMPORTANCE OF HAVING A HEALTH CARE PROXY PATIENT DECLINED. PATIENT LIVES IN A HOUSE APARTMENT IN [place] [facility] WITH HIS BROTHER, HE ANTICIPATES TO BE DISCHARGED HOME TOMORROW WITH HOME PHYSICAL THERAPY I DISCUSSED WITH HIM THE VARIOUS VNA AGENCIES HE DESCRIBES HIMSELF ACTIVE AND INDEPENDENT IN HIS ADLS AND MOBILITY HE HAS A WALKER THAT AT TIMES HE MAY USE, HE HAS HISTORY OF ANXIETY AND DEPRESSION AND DOES NOT CURRENTLY SEE ANYONE FOR AND IS NOT INTERESTED IN SEEING ANYONE, HE RECEIVES HIS MEDICATIONS FOR THIS AT HIS PCP OFFICE, HE IS ON CPAP BUT DOES NOT REMBER THE NAME OF THE SUPPLIES DISCHARGE PLAN HOME WITH THE [facility] (PT CHOSE) FOR HOME PT FOLLOW UP WITH PCP DR KAYLEY ROY ORTHOPEDIC SURGICAL FOLLOW UP PER DISCHARGE INSTRUCTIONS .
--- NOTE | 2021-02-17 16:15 | HO.PM.IMPN ---
Subjective Subjective Date of Service: 02/17/21 Interval History: postop pain controlled no chest pain/fever Physical Exam Vital Signs: Vital Signs: Last Vital Signs Temp 98.3 F 02/17/21 15:34 Pulse 81 02/17/21 15:34 Resp 20 02/17/21 15:34 BP 114/57 L 02/17/21 15:34 Pulse Ox 96 02/17/21 15:34 Body Mass Index 43.0 Gen: in no acute distress HEENT: sclera anicteric, moist mucus membranes Neck: supple Lungs: clear to auscultation bilaterally Heart: regular rate and rhythm, no murmurs Abd: soft, obese, non-tender, non-distended Ext: no edema Skin: warm/well-perfused Neuro: alert and oriented x3, no focal findings Psych: appropriate affect Objective Data Current Medications Generic Name Dose Route Start Last Admin Trade Name Freq PRN Reason Stop Dose Admin Acetaminophen 650 mg 02/16/21 11:23 Acetaminophen 325 Mg Tablet PO Q6H PRN Pain, Mild (Pain Scale 1-3) Amitriptyline HCl 25 mg 02/16/21 21:00 02/16/21 20:27 Amitriptyline Hcl 25 Mg Tablet PO 25 mg BEDTIME [facility] Administration Aspirin 325 mg 02/17/21 22:00 Aspirin 325 Mg Tablet PO BID [facility] Atorvastatin Calcium 20 mg 02/17/21 09:00 02/17/21 08:18 Atorvastatin Calcium 20 Mg Tablet PO 20 mg DAILY [facility] Administration Escitalopram Oxalate 20 mg 02/17/21 09:00 02/17/21 08:18 Escitalopram Oxalate 20 Mg Tablet PO 20 mg DAILY [facility] Administration Lactated Ringer's 1,000 mls @ 100 mls/hr 02/16/21 06:30 02/17/21 06:04 Lr IVCONT 100 mls/hr .Q10H [facility] Administration Promethazine HCl 6.25 mg/ 50.25 mls @ 201 mls/hr 02/16/21 18:15 02/16/21 18:47 Sodium Chloride IV Infused Q4H PRN Infusion Nausea Ketorolac Tromethamine 15 mg 02/16/21 12:00 02/17/21 12:21 Ketorolac Tromethamine 15 Mg/Ml Vial IVPUSH 15 mg Q6H [facility] Administration Lisinopril 10 mg 02/16/21 21:00 02/16/21 20:27 Lisinopril 10 Mg Tablet PO 10 mg BEDTIME [facility] Administration Protocol Morphine Sulfate 3 mg 02/16/21 11:23 02/17/21 14:14 Morphine Sulfate 4 Mg/Ml Cartridge IVPUSH 3 mg Q2H PRN Administration Pain, Severe (Pain Scale 7-10) Naloxone HCl 0.2 mg 02/16/21 11:23 Naloxone Hcl 0.4 Mg/Ml Vial IVPUSH Q2M PRN Excessive sedation or RR < 8 Ondansetron HCl 4 mg 02/16/21 11:23 02/16/21 15:53 Ondansetron Hcl 4 Mg/2 Ml Vial IVPUSH 4 mg Q8H PRN Administration Nausea and Vomiting Oxycodone HCl 10 mg 02/16/21 12:00 02/17/21 12:20 Oxycodone Hcl Immed Release 5 Mg Tablet PO 10 mg Q6H [facility] Administration Sodium Chloride 3 ml 02/16/21 16:00 02/17/21 14:19 0.9 % Sodium Chloride Flush 3 Ml Syringe IVFLUSH Not Given QSHIFT [facility] Zolpidem Tartrate 5 mg 02/16/21 16:40 02/16/21 20:27 Zolpidem Tartrate 5 Mg Tablet PO 5 mg BEDTIME PRN Administration Insomnia Labs CBC & Chem 7: 02/17/21 05:35 01/14/21 11:10 Assessment and Plan (1) Status post total left knee replacement: Status: Acute (2) HTN (hypertension): Status: Acute Assessment and Plan: hospital d#2 56yo M with morbid obesity s/p sleeve gastrectomy, HTN, HLD, DM2 that resolved after bariatric surgery, CLARITA on CPAP, and depression/anxiety POD #1 L TKA for OA medicine consultation for management of comorbid problems # HTN - continue lisinopril # depression/anxiety - continue citalopram [hospital formulary substitute escitalopram], amitriptyline, prn zolpidem # HLD - continue atorvastatin # morbid obesity - lost 70 lb after sleeve gastrectomy in July # CLARITA - CPAP at night # hx DM2 - resolved after sleeve gastrectomy # VTE ppx - full-dose ASA bid as per orthopedics team; will need 28+d of extended ppx # postop TKA - analgesia, PT, dispo planning as per orthopedics team
[2021-02-17] MEDS: Acetaminophen 325 MG TABLET 650 MG PO ×2 (17:07→23:36)
[2021-02-17] MEDS: lisinopriL 10 MG TABLET PO (19:59)
[2021-02-17] MEDS: Amitriptyline HCl 25 MG TABLET PO (19:59)
[2021-02-17] MEDS: 0.9 % Sodium Chloride Flush 3 ML SYRINGE IVFLUSH (19:59)
[2021-02-17] MEDS: Aspirin 325 MG TABLET PO (20:01)
[2021-02-17] MEDS: Zolpidem Tartrate 5 MG TABLET PO (20:02)
[2021-02-18 00:03] VITALS: RESP 20
[2021-02-18 04:00] VITALS: BP 100/56; PULSE 69; RESP 20; TEMP 36.7; O2SAT 97
[2021-02-18] MEDS: Morphine Sulfate 4 MG/ML CARTRIDGE 3 MG IVPUSH (04:43)
[2021-02-18] MEDS: Ketorolac Tromethamine 15 MG/ML VIAL IVPUSH ×2 (05:51→10:58)
[2021-02-18] MEDS: oxyCODONE HCl Immed Release 5 MG TABLET 10 MG PO ×2 (05:51→10:59)
[2021-02-18] MEDS: Acetaminophen 325 MG TABLET 650 MG PO ×2 (05:52→10:58)
[2021-02-18 06:49] LABS: Hemoglobin 10.3 g/dl (14.0-18.0)
[2021-02-18 08:00] VITALS: BP 121/56; PULSE 77; RESP 19; TEMP 36.2; O2SAT 98
[2021-02-18] MEDS: Atorvastatin Calcium 20 MG TABLET PO (08:03)
[2021-02-18] MEDS: Escitalopram Oxalate 20 MG TABLET PO (08:03)
[2021-02-18] MEDS: Aspirin 325 MG TABLET PO (08:03)
[2021-02-18 08:04] VITALS: BP 100/56; PULSE 69; O2SAT 97
[2021-02-18] MEDS: 0.9 % Sodium Chloride Flush 3 ML SYRINGE IVFLUSH (08:04)
--- NOTE | 2021-02-18 08:25 | MHC.CM.PN ---
NURSE BUS INSPECTOR NOTE ELECTRONIC MEDICAL RECORD REVIEWED ALONG WITH CASE DISCUSSED WITH STAFF NURSE , MET WITH PATIENT EXPLAINED THAT HIS PCP HAS RETIRED AND HE WAS ASSIGNED A NEW ONE. DISCHARGE PLAN HOME WITH NEW REFERRAL TO THE [facility] FOR HOME [facility]ICAL [facility]ERAPY (POST DISCHARGE FROM THEM HE WANTS TO GO [facility] , I ENCOURAGED HIM TO CONTACT HIS SURGEON AND LET THEM KNOW THIS SO THEY WILL THE BE ABLE TO SEND REFERRAL TO THEM PCP KERRY GERARD SURGICAL FOLLOW UP PER D/C INSTRUCTIONS TRANSPORTATION FAMILY
--- NOTE | 2021-02-18 11:55 | HO.PM.IMPN ---
Subjective Subjective Date of Service: 02/18/21 Interval History: left knee pain Cardiovascular Cardiovascular: Reports no additional cardiovascular complaints Gastrointestinal Gastrointestinal: Reports no additional gastrointestinal complaints Physical Exam Vital Signs: Vital Signs: Last Vital Signs Temp 97.1 F 02/18/21 08:00 Pulse 69 02/18/21 08:04 Resp 19 02/18/21 08:00 BP 100/56 L 02/18/21 08:04 Pulse Ox 97 02/18/21 08:04 Body Mass Index 43.0 General: AO X 3, no acute distress Resp: CTA bilateral CVS: S1,S2,RRR GI: soft, non tender, non distended Neuro: motor grossly intact Psych: appropriate affect Objective Data Current Medications Generic Name Dose Route Start Last Admin Trade Name Freq PRN Reason Stop Dose Admin Acetaminophen 650 mg 02/16/21 11:23 02/18/21 10:58 Acetaminophen 325 Mg Tablet PO 650 mg Q6H PRN Administration Pain, Mild (Pain Scale 1-3) Amitriptyline HCl 25 mg 02/16/21 21:00 02/17/21 19:59 Amitriptyline Hcl 25 Mg Tablet PO 25 mg BEDTIME BHARTI Administration Aspirin 325 mg 02/17/21 22:00 02/18/21 08:03 Aspirin 325 Mg Tablet PO 325 mg BID BHARTI Administration Atorvastatin Calcium 20 mg 02/17/21 09:00 02/18/21 08:03 Atorvastatin Calcium 20 Mg Tablet PO 20 mg DAILY BHARTI Administration Escitalopram Oxalate 20 mg 02/17/21 09:00 02/18/21 08:03 Escitalopram Oxalate 20 Mg Tablet PO 20 mg DAILY BHARTI Administration Promethazine HCl 6.25 mg/ 50.25 mls @ 201 mls/hr 02/16/21 18:15 02/16/21 18:47 Sodium Chloride IV Infused Q4H PRN Infusion Nausea Ketorolac Tromethamine 15 mg 02/16/21 12:00 02/18/21 10:58 Ketorolac Tromethamine 15 Mg/Ml Vial IVPUSH 15 mg Q6H BHARTI Administration Lisinopril 10 mg 02/16/21 21:00 02/17/21 19:59 Lisinopril 10 Mg Tablet PO 10 mg BEDTIME BHARTI Administration Protocol Morphine Sulfate 3 mg 02/16/21 11:23 02/18/21 04:43 Morphine Sulfate 4 Mg/Ml Cartridge IVPUSH 3 mg Q2H PRN Administration Pain, Severe (Pain Scale 7-10) Naloxone HCl 0.2 mg 02/16/21 11:23 Naloxone Hcl 0.4 Mg/Ml Vial IVPUSH Q2M PRN Excessive sedation or RR < 8 Ondansetron HCl 4 mg 02/16/21 11:23 02/16/21 15:53 Ondansetron Hcl 4 Mg/2 Ml Vial IVPUSH 4 mg Q8H PRN Administration Nausea and Vomiting Oxycodone HCl 10 mg 02/16/21 12:00 02/18/21 10:59 Oxycodone Hcl Immed Release 5 Mg Tablet PO 5 mg Q6H BHARTI Administration Sodium Chloride 3 ml 02/16/21 16:00 02/18/21 08:04 0.9 % Sodium Chloride Flush 3 Ml Syringe IVFLUSH 3 ml QSHIFT BHARTI Administration Zolpidem Tartrate 5 mg 02/16/21 16:40 02/17/21 20:02 Zolpidem Tartrate 5 Mg Tablet PO 5 mg BEDTIME PRN Administration Insomnia Labs CBC & Chem 7: 02/18/21 06:06 01/14/21 11:10 Assessment and Plan (1) Status post total left knee replacement: Status: Acute (2) HTN (hypertension): Status: Acute Assessment and Plan: hospital d#3 56yo M with morbid obesity s/p sleeve gastrectomy, HTN, HLD, DM2 that resolved after bariatric surgery, CLARITA on CPAP, and depression/anxiety POD #2 L TKA for OA medicine consultation for management of comorbid problems HTN lisinopril depression/anxiety citalopram, amitriptyline, prn zolpidem HLD atorvastatin morbid obesity - lost 70 lb after sleeve gastrectomy in July CLARITA - CPAP at night hx DM2 - resolved after sleeve gastrectomy VTE ppx - full-dose ASA bid as per orthopedics team; will need 28+d of extended ppx postop TKA - analgesia, PT, dispo planning as per orthopedics team
--- NOTE | 2021-04-21 13:17 | P.DS_ITS ---
DS: Providers Provider Date of Service: 02/18/21 Date of admission: 02/16/21 06:30 Primary care physician: XIOMY Draper Consults: 02/16/21 11:23 Consult to Hospitalist Routine Consulting Provider: Hospitalist Reason For Exam: medical issues DS: Diagnosis Discharge Diagnosis (1) Status post total left knee replacement: Status: Acute DS: Medications Discharge Medications Home Medications: Home Medications Medication Instructions Recorded Confirmed amitriptyline 25 mg tablet 25 mg PO BEDTIME 11/18/20 02/12/21 citalopram 40 mg tablet 40 mg PO BEDTIME 11/18/20 02/12/21 lisinopril 10 mg tablet 10 mg PO BEDTIME 11/18/20 02/12/21 zolpidem 5 mg tablet 5 mg PO BEDTIME PRN 11/18/20 02/12/21 epinephrine [EpiPen] 0.3 mg IM Q10M PRN 02/11/21 02/12/21 tramadol 50 mg PO Q6H PRN 02/11/21 02/12/21 atorvastatin 1 tab PO DAILY 02/16/21 02/16/21 Previous Rx's Medication Instructions Recorded acetaminophen 650 mg PO Q6H PRN 30 Days #120 tab 02/18/21 aspirin 325 mg PO BID 42 Days #84 tab 02/18/21 docusate sodium 100 mg capsule 100 mg PO DAILY 30 Days #30 cap 02/18/21 oxycodone 10 mg PO Q6H 7 Days #56 tab 02/18/21 walker #1 ea 02/18/21 celecoxib 200 mg capsule 200 mg PO BID 30 Days #60 cap 02/25/21 oxycodone-acetaminophen 5 mg-325 1 tab PO Q8H PRN 7 Days #28 tab 04/01/21 mg tablet DS: Summary Hospital Course Hospital Course: This is a 56-year-old gentleman who was seen in the office for left knee pain. He was found have end-stage osteoarthritis of the left knee and failed all conservative measures and agree to move forward with left total knee arthroplasty. The patient underwent a successful left total knee arthroplasty, was transferred to PACU and then to the floor to recover. During their stay, their vitals were stable, afebrile at 96.9. Labs were unremarkable, H/H 10.3/30.0 . POD 1 he was s tarted on ASAfor DVT ppx, they also received services twice a day. Prior to discharge, their dressing was change, incision clean dry and intact, new Aquacel dressing applied and the plan was to be discharged home with vna svs Time Spent with Patient Time attestation: Total time spent providing and/or coordinating discharge se rvices: Discharge coordination time: Less than 30 minutes Quality: Stroke Does the patient have a stroke diagnosis?: No Physical Exam Vital Signs: Vital Signs: Last Vital Signs Temp 97.1 F 02/18/21 08:00 Pulse 69 02/18/21 08:04 Resp 19 02/18/21 08:00 BP 100/56 L 02/18/21 08:04 Pulse Ox 97 02/18/21 08:04 Body Mass Index 43.0 Const: General: cooperative, healthy appearing and no acute distress Resp: Effort & Inspection: normal respiratory effort and able to speak in complete sentences Cardio: Rate: regular rate Peripheral pulses: Peripheral pulses 2+ throughout GI: Palpation (GI): Soft to palpation Skin: General skin exam: no rashes or lesions noted Extrem: Other: incision clean dry and intact. Nila intact. No erythema or effusion. Calf supple nontender. Neurovascularly intact. DS: Data Data Completed and Pending Completed studies during hospitalization [Text1]: Pending at discharge 02/16/21 08:33 Surgical [PTH] Routine Procedures Replacement of Left Knee Joint with Synthetic Substitute, Uncemented, Open Approach (02/16/21) Discharge Plan Discharge Patient Disposition: Home Health Service Discharge Diagnosis: s/p left total knee arthroplasty Referrals: [place] [facility] [Outside] - 1 Day (discharged home with new referral to the [facility] for home physical thearpy they will be out to see you the day after discharge. pcp -newly assighned KERRY STAUFFER FROM [facility] ( DR BABB HAS RETIRED) PLEASE CALL FOR POST HOSPITLA DISCHARGE FOLLOW UP ORTHOPEDIC SURGEON FOLLOW UP PER DISCHARGE INSTRUCTIONS TRANSPORTATION FAMILY) Rafita Montez-MUKUL Piedra [Physician [employer]ractor Engine [employer]er] - None (03/04/21 at 1:45) Discharge Medications: New acetaminophen 325 mg Tablet 650 mg PO Q6H PRN (Reason: Pain, Mild (Pain Scale 1-3)) 30 Days Qty: 120 RF: 0 aspirin 325 mg Tablet 325 mg PO BID 42 Days Qty: 84 RF: 0 oxycodone 5 mg Tablet 10 mg PO Q6H 7 Days Qty: 56 RF: 0 Continued tramadol 50 mg Tablet 50 mg PO Q6H PRN (Reason: Pain) RF: 0 epinephrine [EpiPen] 0.3 mg/0.3 mL Auto-Injector 0.3 mg IM Q10M PRN (Reason: Anaphylaxis) RF: 0 atorvastatin 20 mg tablet 1 tab PO DAILY RF: 0 lisinopril 10 mg tablet 10 mg PO BEDTIME RF: 0 amitriptyline 25 mg tablet 25 mg PO BEDTIME RF: 0 citalopram 40 mg tablet 40 mg PO BEDTIME RF: 0 zolpidem [Ambien] 5 mg tablet 5 mg PO BEDTIME PRN (Reason: Insomnia) RF: 0 No Action docusate sodium [Colace] 100 mg capsule 100 mg PO DAILY 30 Days Qty: 30 RF: 0 (DME) walker Misc See Rx Instructions .ROUTE .MEDSUPPLY Qty: 1 RF: 0 celecoxib [Celebrex] 200 mg capsule 200 mg PO BID 30 Days Qty: 60 RF: 0 oxycodone-acetaminophen [Percocet] 5-325 mg tablet 1 tab PO Q8H PRN (Reason: pain) 7 Days Qty: 28 RF: 0 Discharge Orders: Discharge Order (Routine); Ordered 02/18/21 Ordered By: Ny Lane Diet: regular diet Activity on Discharge: Use cane or walker Stand Alone Forms: Patient Portal Discharge page Care Plan Goals: Restore fxn of the left knee Health Concerns: None Plan of Treatment: Physical Therapy for ROM 0-120, quad strength, gait training. Use walker for ambulation Limit stair climbing, No shower, No tub bath, No driving Continue anticoagulant Keep Aquacel dressing clean, dry and intact. Follow up with orthopedics in 2 weeks Assessment: Physical Therapy for ROM 0-120, quad strength, gait training. Use walker for ambulation Limit stair climbing, No shower, No tub bath, No driving Continue anticoagulant Keep Aquacel dressing clean, dry and intact. Follow up with orthopedics in 2 weeks Discharge Date/Time: 02/18/21 12:08
== END 2021-02-18 12:08 | disposition home health service (06) | DRG 302 ==
LOC: HO.SSSA 06:42 → HO.S3 11:00
PROVIDERS: Physician Assistant; Admitting Provider Orthopaedic Surgery; PCP Physician Assistant Medical; Visit Provider Orthopaedic Surgery
PROC: 0SRD0JA Replacement of Left Knee Joint with Synthetic Substitute, Uncemented, Open Approach (ICD-10-PCS; CPT 27447; principal; 2021-02-16 07:30)
DX: M17.12 Unilateral primary osteoarthritis, left knee (principal); E66.01 Morbid (severe) obesity due to excess calories; E11.9 Type 2 diabetes mellitus without complications; G47.33 Obstructive sleep apnea (adult) (pediatric); E78.5 Hyperlipidemia, unspecified; I10 Essential (primary) hypertension; Z68.41 Body mass index [BMI] 40.0-44.9, adult; F41.9 Anxiety disorder, unspecified; F32.9 Major depressive disorder, single episode, unspecified; Z20.822 Contact with and (suspected) exposure to COVID-19; Z87.891 Personal history of nicotine dependence; Z79.899 Other long term (current) drug therapy
CPT/HCPCS: 36415; 73560; 80048; 82947; 85014; 85018; 85025; 86850; 86900; 86901; 87635; 87640; 87641; 88305; 88311; 93005; 94660; 97110; 97116; 97162; 97165; 97535; C1776; J0131; J0690; J1170; J1885; J2250; J2270; J2370; J2405; J2550; J3010

== ENCOUNTER → 2021-03-04 13:35 | Outpatient (BNVA) | payer OTHER, SELFPAY | PROVIDERS: PCP Internal Medicine; Visit Provider Physician Assistant | DX: Z47.1 Aftercare following joint replacement surgery (principal); Z96.652 Presence of left artificial knee joint | CPT/HCPCS: 99212 ==

== ENCOUNTER → 2021-04-01 09:26 | Outpatient (BNVA) | payer OTHER, SELFPAY | PROVIDERS: Visit Provider Orthopaedic Surgery | DX: M25.562 Pain in left knee (principal); Z96.652 Presence of left artificial knee joint; Z87.891 Personal history of nicotine dependence | CPT/HCPCS: 99212 ==

== ENCOUNTER 2021-05-13 07:48 | Outpatient (REF) | payer OTHER, SELFPAY ==
--- NOTE | ~2021-05-13 | XR_ITS ---
EXAMINATION: AP STANDING KNEE. LEFT KNEE. CLINICAL INFORMATION: Left knee pain COMPARISON: None TECHNIQUE: AP bilateral knee standing. Left knee 1 view lateral. FINDINGS: AP bilateral knees standing: There is a total left knee prosthesis in the alignment. There is loss of medial compartment joint space right knee with intercondylar eminence spurring. No loose bodies or fractures seen. No soft tissue swelling. Lateral view left knee: There is mild to moderate suprapatellar joint effusion. The knee prosthetic components are in alignment. No prosthetic loosening. Minimal soft tissue swelling. XR/XR knee LT 2V IMPRESSION: Mild soft tissue swelling and left suprapatellar joint effusion left knee. There is anterior suprapatella enthesophyte. Moderate degenerative changes medial compartment right knee.
--- NOTE | ~2021-05-13 | XR_ITS ---
EXAMINATION: AP STANDING KNEE. LEFT KNEE. CLINICAL INFORMATION: Left knee pain COMPARISON: None TECHNIQUE: AP bilateral knee standing. Left knee 1 view lateral. FINDINGS: AP bilateral knees standing: There is a total left knee prosthesis in the alignment. There is loss of medial compartment joint space right knee with intercondylar eminence spurring. No loose bodies or fractures seen. No soft tissue swelling. Lateral view left knee: There is mild to moderate suprapatellar joint effusion. The knee prosthetic components are in alignment. No prosthetic loosening. Minimal soft tissue swelling. XR/XR knee standing BI IMPRESSION: Mild soft tissue swelling and left suprapatellar joint effusion left knee. There is anterior suprapatella enthesophyte. Moderate degenerative changes medial compartment right knee.
--- NOTE | 2021-05-13 10:36 | ECG_ITS ---
Test Reason : PREOP Blood Pressure : / mmHG Vent. Rate : 060 BPM Atrial Rate : 060 BPM P-R Int : 136 ms QRS Dur : 104 ms QT Int : 422 ms P-R-T Axes : 051 035 034 degrees QTc Int : 422 ms Normal sinus rhythm Normal ECG When compared with ECG of 14-JAN-2021 11:00, No significant change was found Referred By: Olegario Instrsaqib Electronically Signed By:Skip Martinez
== END 2021-05-13 07:49 | disposition home or self-care (01) ==
LOC: HO.HOSX 07:48
PROVIDERS: Visit Provider Orthopaedic Surgery
DX: Z47.1 Aftercare following joint replacement surgery (principal); Z01.810 Encounter for preprocedural cardiovascular examination; M25.561 Pain in right knee; M25.562 Pain in left knee; Z96.652 Presence of left artificial knee joint
CPT/HCPCS: 73560; 73565; 93005; 99212

== ENCOUNTER 2021-05-14 17:00 | Outpatient (RCR) | payer OTHER, SELFPAY ==
--- NOTE | 2021-03-13 17:53 | MHC.PT.EP ---
[facility] [place] Office [place] [facility] [place] [facility] [address] Mily Mann [address] [phone] F: [phone] F: [phone] F: [phone] F: [phone] Physical Therapy Plan of Care Date of Evaluation: Date of Surgery: 02/16/21 Diagnosis: L TKR Assessment: Pt is a 56 y/o male referred to PT s/p L TKR performed on 02/16/21 for management of long Hx of L knee dysfunction resulting in decreased tolerance and ability to perform ambulatory and standing tasks for duration, as well as negotiating stairs, performing squatting activities and heavy HH chores secondary to decreased hip and L knee strength, decreased L knee ROM as well as decreased standing posture, increased tissue tension, gait abnormality, healing process, and pain. Pt is deemed an appropriate candidate to receive skilled PT in order to address his physical limitations to improve his functional ability. Frequency and Duration: The patient will be seen 2 x / wk x 8 wks. Short Term Goals: initiate HEP. improve knee flexion to > 124 degrees. improve knee extension to 0 degrees extension. Intermediate Goals: Negotiates stairs with reciprocal fashion. Able to walk 1 mile with managed Sx. I with home program Treatment Plan: Modalities to reduce pain, spasms and effusion. Manual therapy to restore motion and function. Therapeutic exercise to improve strength and flexibility. Neuromuscular re-education for posture and balance. Therapeutic activities to return to functional activities of daily living. Electronically signed by: Jamie Hedrick PT. Please sign and return to therapist. Thank you for your referral.
--- NOTE | 2021-05-14 18:17 | MHC.PT.DC ---
[facility] [place] Office [place] Office [place] Office [address] Mily Mann [address] [phone] F: [phone] F: [phone] F: [phone] F: [phone] Physical Therapy Discharge Report Diagnosis: L TKR Date of Surgery: 02/16/21 Date of Evaluation: 03/13/21 Date of Discharge: 05/14/21 Treatments to Date: 13 Cancellations to Date: No Shows to Date: Discharge Status: Achieved Goals Improved Function Independent with HEP Discharge Summary: Joni has been motivated and active participant in his therapy, in/out of the clinic. pt has met most of his therapeutic goal save for minor ROM deficit and he is I with his HEP. pt in agreement with DC at this time. Electronically signed by: Jamie Hedrick PT Please sign and return to therapist. Thank you for your referral.
== END 2021-05-14 18:18 | disposition home or self-care (01) ==
LOC: HO.PTCHIC 17:00
PROVIDERS: Visit Provider Orthopaedic Surgery
DX: M17.12 Unilateral primary osteoarthritis, left knee (principal); Z96.652 Presence of left artificial knee joint
CPT/HCPCS: 97110; 97161; 97530

== ENCOUNTER 2021-05-27 08:26 | Outpatient (REF) | payer OTHER, SELFPAY ==
--- NOTE | ~2021-05-27 | XR_ITS ---
EXAMINATION: XR KNEE, RIGHT CLINICAL INFORMATION: Pain. COMPARISON: Images dated 05/13/2021. TECHNIQUE: Two views of the right knee. FINDINGS: Moderate patellofemoral spurring. There is also spurring at the insertion of the quadriceps and infrapatellar tendon. The patella is fairly well seated on the sunrise image. Minimal lateralization. XR/XR knee RT 2V IMPRESSION: Moderate patellofemoral degenerative changes.
== END 2021-05-27 08:27 | disposition home or self-care (01) ==
LOC: HO.HOSX 08:26
PROVIDERS: Visit Provider Physician Assistant
DX: Z01.818 Encounter for other preprocedural examination (principal); M17.11 Unilateral primary osteoarthritis, right knee
CPT/HCPCS: 73560; 99212

== ENCOUNTER → 2021-06-04 06:18 | Day surgery (SDC) | payer OTHER, SELFPAY | PROVIDERS: PCP Internal Medicine; Visit Provider Orthopaedic Surgery | DX: Z13.89 Encounter for screening for other disorder (principal) ==

== ENCOUNTER 2021-06-04 09:57 | Day surgery (SDC) | payer OTHER, SELFPAY ==
[2021-05-13 11:39] LABS: MANUAL DIFF FLAG NO
[2021-05-13 11:46] LABS: Basophils Absolute Auto 0.1 X10*3/uL (0.0-0.2); Basophils Percent Auto 1.1 % (0-2); Eosinophils Absolute Auto 0.1 X10*3/uL (0.0-0.4); Eosinophils Percent Auto 1.3 % (0-4); Hematocrit 44.7 % (42-52); Hemoglobin 14.8 g/dl (14.0-18.0); Imm Gran Abs Auto 0.03 X10*3/uL (0.00-0.03); Imm Gran Pct Auto 0.5 % (0.0-0.4); Lymphocytes Absolute Auto 2.1 X10*3/uL (1.2-4.9); Lymphocytes Percent Auto 33.3 % (20-40); Mean Corpuscular HGB Conc 33.1 g/dl (31.0-36.0); Mean Corpuscular Hemoglobin 27.2 pg (27.0-33.0); Mean Corpuscular Volume 82.2 fL (80-98); Mean Platelet Volume 10.1 fL (9.4-12.4); Monocytes Absolute Auto 0.5 X10*3/uL (0.1-1.2); Monocytes Percent Auto 7.6 % (2-11); Neutrophils Absolute Auto 3.5 X10*3/uL (2.0-8.3); Neutrophils Percent Auto 56.2 % (45-73); Platelet Count 253 X10*3/uL (160-400); Red Blood Count 5.44 X10*6/uL (4.60-5.80); Red Cell Distribution Width 13.6 % (11.0-16.0); White Blood Count 6.2 X10*3/uL (4.8-10.8)
[2021-05-13 11:56] LABS: Estimated Average Glucose 108 mg/dL; Hemoglobin A1c % 5.4 %
[2021-05-13 12:07] LABS: Anion Gap 13 (12-20); Blood Urea Nitrogen 12 mg/dL (9-16); Calcium 9.6 mg/dL (8.4-10.2); Carbon Dioxide 25 mmol/L (22-29); Chloride 107 mmol/L (96-108); Estimated Glomerular Filt Rate > 60; Glucose Random 91 mg/dL (60-115); Potassium 4.1 mmol/L (3.3-5.1); Sodium 141 mmol/L (135-145)
--- NOTE | 2021-05-18 10:54 | HO.ANESPROP2 ---
Documented by User: Dolores Walker NP 06/03/21 08:59 HPI - Anesthesia Eval Consult details Narrative: 56yo M for Right Knee Replacement Total s/p L TKA 02/16/21 with spinal/block PCP cleared Tramadol daily s/p gastric sleeve 2019 PMFSH Active Problems Active Problems: All Active Problems (Updated 04/01/21 @ 10:01 by Olegario Jackson MD) Primary osteoarthritis of right knee (Acute) Status post total left knee replacement (Acute) Past Medical History Medical History Chronic pain syndrome Elevated cholesterol HTN (hypertension) Sleep apnea Type 2 diabetes mellitus Family History Family history of problems with anesthesia: No Surgical History Surgical History H/O bariatric surgery H/O colonoscopy History of total left knee replacement (TKR) Hx of appendectomy Hx of arthroscopic knee surgery Hx of foot surgery Hx of foot surgery Hx of hand surgery Hx of lumbar discectomy Hx of right inguinal hernia repair History of Problems with Anesthesia: No Social History Social History Household Members: Family Housing: House Are you a primary hospice care sales consultant to a significant other at home: No Do you presently have visiting nurse or other home services: No Patient Tobacco Use Status: Former Tobacco user Quit Date: 2005 Tobacco use type: Cigarette Years Smoked: 15 Advance Directives: No Advance Directives Information Provided: No service: No Current occupational status: unemployed Current occupation: Right Handed Meds Allergies Allergy/AdvReac Type Severity Reaction Status Date / Time bee pollen [BEE STINGS] Allergy Severe ANAPHYLACTIC Verified 06/04/21 06:23 SHOCK- CARRIES EPI PEN Home Medications Medication Instructions Recorded Confirmed Last Taken Type amitriptyline 25 mg tablet 25 mg PO BEDTIME 11/18/20 05/18/21 Unknown History citalopram 40 mg tablet 40 mg PO BEDTIME 11/18/20 05/18/21 Unknown History lisinopril 10 mg tablet 10 mg PO BEDTIME 11/18/20 05/18/21 Unknown History zolpidem 5 mg tablet (Ambien) 5 mg PO BEDTIME PRN 11/18/20 05/18/21 Unknown History epinephrine 0.3 mg/0.3 mL 0.3 mg IM Q10M PRN 02/11/21 05/18/21 Unknown History injection, auto-injector (EpiPen) tramadol 50 mg tablet 50 mg PO Q6H PRN 02/11/21 05/18/21 Unknown History atorvastatin 20 mg tablet 1 tab PO DAILY 02/16/21 05/18/21 Unknown History Exam Exam Date and Time: May 18, 2021 1054 Pertinent Lab Results Pertinent Lab Results: Lab Results 05/13/21 05/13/21 05/13/21 Range/Units 10:35 10:35 10:35 WBC 6.2 (4.8-10.8) X10*3/uL RBC 5.44 (4.60-5.80) X10*6/uL Hgb 14.8 D (14.0-18.0) g/dl Hct 44.7 D (42-52) % MCV 82.2 (80-98) fL MCH 27.2 (27.0-33.0) pg MCHC 33.1 (31.0-36.0) g/dl RDW 13.6 (11.0-16.0) % Plt Count 253 (160-400) X10*3/uL MPV 10.1 (9.4-12.4) fL Immature Gran % (Auto) 0.5 H (0.0-0.4) % Neut % (Auto) 56.2 (45-73) % Lymph % (Auto) 33.3 (20-40) % [place] % (Auto) 7.6 (2-11) % Eos % (Auto) 1.3 (0-4) % Baso % (Auto) 1.1 (0-2) % Lymph # (Auto) 2.1 (1.2-4.9) X10*3/uL [place] # (Auto) 0.5 (0.1-1.2) X10*3/uL Eos # (Auto) 0.1 (0.0-0.4) X10*3/uL Baso # (Auto) 0.1 (0.0-0.2) X10*3/uL Abs Immat Gran (auto) 0.03 (0.00-0.03) X10*3/uL Absolute Neuts (auto) 3.5 (2.0-8.3) X10*3/uL Absolute Nucleated RBC 0.000 (0.0-0.012) X10*3/uL Nucleated RBC % (auto) 0.0 (0.0-0.2) /100WBC Sodium 141 (135-145) mmol/L Potassium 4.1 (3.3-5.1) mmol/L Chloride 107 (96-108) mmol/L Carbon Dioxide 25 (22-29) mmol/L Anion Gap 13 (12-20) BUN 12 (9-16) mg/dL Creatinine 0.76 (0.5-1.4) mg/dL Estim Creat Clear Calc TNP Estimated GFR > 60 Random Glucose 91 (60-115) mg/dL Estimat Average Glucose 108 mg/dL Hemoglobin A1c % 5.4 % Calcium 9.6 (8.4-10.2) mg/dL Nasal Screen MRSA (PCR) (Negative) Nasal S. aureus Screen (Negative) Nasal MRSA/S.aureus Interp Blood Type Antibody Screen 05/13/21 05/18/21 05/27/21 Range/Units 10:35 Unknown 13:36 WBC (4.8-10.8) X10*3/uL RBC (4.60-5.80) X10*6/uL Hgb (14.0-18.0) g/dl Hct (42-52) % MCV (80-98) fL MCH (27.0-33.0) pg MCHC (31.0-36.0) g/dl RDW (11.0-16.0) % Plt Count (160-400) X10*3/uL MPV (9.4-12.4) fL Immature Gran % (Auto) (0.0-0.4) % Neut % (Auto) (45-73) % Lymph % (Auto) (20-40) % [place] % (Auto) (2-11) % Eos % (Auto) (0-4) % Baso % (Auto) (0-2) % Lymph # (Auto) (1.2-4.9) X10*3/uL [place] # (Auto) (0.1-1.2) X10*3/uL Eos # (Auto) (0.0-0.4) X10*3/uL Baso # (Auto) (0.0-0.2) X10*3/uL Abs Immat Gran (auto) (0.00-0.03) X10*3/uL Absolute Neuts (auto) (2.0-8.3) X10*3/uL Absolute Nucleated RBC (0.0-0.012) X10*3/uL Nucleated RBC % (auto) (0.0-0.2) /100WBC Sodium (135-145) mmol/L Potassium (3.3-5.1) mmol/L Chloride (96-108) mmol/L Carbon Dioxide (22-29) mmol/L Anion Gap (12-20) BUN (9-16) mg/dL Creatinine (0.5-1.4) mg/dL Estim Creat Clear Calc Estimated GFR Random Glucose (60-115) mg/dL Estimat Average Glucose mg/dL Hemoglobin A1c % % Calcium (8.4-10.2) mg/dL Nasal Screen MRSA (PCR) NEGATIVE (Negative) Nasal S. aureus Screen POSITIVE A (Negative) Nasal MRSA/S.aureus Interp SEE NOTE Blood Type Cancelled O Positive Antibody Screen Cancelled NEGATIVE Narrative Narrative: EKG 05/2021 Vent. Rate : 060 BPM ? ? Atrial Rate : 060 BPM ?? P-R Int : 136 ms? QRS Dur : 104 ms ? ? QT Int : 422 ms ? ? ? P-R-T Axes : 051 035 034 degrees ?? QTc Int : 422 ms ? Normal sinus rhythm Normal ECG When compared with ECG of 14-JAN-2021 11:00, No significant change was found Assessment and Plan Assessment Anesthesia Assessment: Chart Reviewed Final Anesthetic Review Family History of Problems with Anesthesia: No History of Problems with Anesthesia: No Documented by User: Frederick Bryant MD 06/04/21 08:46 [facility] Past Medical History Medical History Chronic pain syndrome Elevated cholesterol HTN (hypertension) Sleep apnea Type 2 diabetes mellitus Surgical History Surgical History H/O bariatric surgery H/O colonoscopy History of total left knee replacement (TKR) Hx of appendectomy Hx of arthroscopic knee surgery Hx of foot surgery Hx of foot surgery Hx of hand surgery Hx of lumbar discectomy Hx of right inguinal hernia repair Social History Social History Household Members: Family Housing: House Are you a primary hospice care sales consultant to a significant other at home: No Do you presently have visiting nurse or other home services: No Patient Tobacco Use Status: Former Tobacco user Quit Date: 2005 Tobacco use type: Cigarette Years Smoked: 15 Advance Directives: No Advance Directives Information Provided: No service: No Current occupational status: unemployed Current occupation: Right Handed Meds Allergies Allergy/AdvReac Type Severity Reaction Status Date / Time bee pollen [BEE STINGS] Allergy Severe ANAPHYLACTIC Verified 06/04/21 06:23 SHOCK- CARRIES EPI PEN Home Medications Medication Instructions Recorded Confirmed Last Taken Type amitriptyline 25 mg tablet 25 mg PO BEDTIME 11/18/20 05/18/21 Unknown History citalopram 40 mg tablet 40 mg PO BEDTIME 11/18/20 05/18/21 Unknown History lisinopril 10 mg tablet 10 mg PO BEDTIME 11/18/20 05/18/21 Unknown History zolpidem 5 mg tablet (Ambien) 5 mg PO BEDTIME PRN 11/18/20 05/18/21 Unknown History epinephrine 0.3 mg/0.3 mL 0.3 mg IM Q10M PRN 02/11/21 05/18/21 Unknown History injection, auto-injector (EpiPen) tramadol 50 mg tablet 50 mg PO Q6H PRN 02/11/21 05/18/21 Unknown History atorvastatin 20 mg tablet 1 tab PO DAILY 02/16/21 05/18/21 Unknown History Exam Airway Mallampati Class: II TM Dist: >3cm Neck ROM: Full Loose/Missing/Broken Teeth: No Heart: RRR Assessment and Plan Assessment Anesthesia Assessment: Anesthesia Plan Discussed Final Anesthetic Review NPO: Yes ASA Class: III Final Preanesthetic Review: No Changes in Pt Med Stat, Meds/Allgs Chart Reviewed, Consent Obtained/Reviewed and Anes Risks/Benef Reviewed Patient Risk: High Procedure Risk: Intermediate Anesthetic Plan Anesthetic Plan: MAC:, Spinal and Regional Block Disposition: Standard PACU
[2021-05-18 13:32] VITALS: BMI 39.2
[2021-05-18 13:47] VITALS: BP 129/72; PULSE 79; RESP 20; O2SAT 97
[2021-05-18 16:24] LABS: MRSA Nasal PCR NEGATIVE (Negative); SA Nasal PCR POSITIVE (Negative)
[2021-06-04] VITALS (13 sets, daily range): BP systolic 120–159; BP diastolic 67–89; PULSE 58–84; RESP 14–20; TEMP 36.1–38.1; O2SAT 93–99
--- NOTE | ~2021-06-04 | XR_ITS ---
EXAMINATION: XR KNEE, RIGHT CLINICAL INFORMATION: Right knee pain. COMPARISON: 05/27/2021 TECHNIQUE: Two views of the right knee. FINDINGS: Since the prior study, the patient has undergone a total knee prosthesis. Immediate postop findings are present with lamonte and air in the subcutaneous tissues. The prosthetic components appear in good position. XR/XR knee RT 2V IMPRESSION: Newly placed right knee joint prosthesis which appears in good position.
[2021-06-04 06:59] LABS: IDNOW Serial# 9DD0AD1C
[2021-06-04 07:00] LABS: COVID-19 Test Negative (Negative)
[2021-06-04] MEDS: Lactated Ringers 1,000 ML 80 ML IVCONT ×2 (07:00→11:43)
--- NOTE | 2021-06-04 07:33 | W.PM.OPN ---
Operative Note Operative Note Date of Service: 06/04/21 Narrative: SURGEON: Dr Olegario Ch) Renetta CHU MACHINE RUG CLEANER: Ny PEREZ PREOP DIAGNOSIS: Osteoarthritis right knee POSTOP DIAGNOSIS: Same OPERATIVE PROCEDURE: RightTotal knee arthroplasty - KRYSTLE NEXGEN CRFlex size G, 7 x 10 mmtibial component, 38 mm patella component CLINICAL NOTE: This individual comes in today in regards to their knee. Has osteoarthritis. Has failed non operative management. Therefore after explaining the risks benefits and alternatives and answering all the questions it was mutually agreed upon care following procedure OPERATIVE DETAILS With of regional and spinal anesthetic the patient was placed supine on the operating table. Pneumatic tourniquet cuff was placed around the upper thigh and inflated to 300 mm of mercury at the beginning of the case. The leg was then prepped and draped in standard fashion with the leg free. Surgical time-out was then performed. The patient was identified. Procedure confirmed. Site confirmed. Medical and allergy history reviewed. Preoperative antibiotics were given. Standard DVT prophylaxis in place. Transexamic acid was given as well. All other items were discussed and agreed upon. Standard small midline incision was made. Was taken down through the subcutaneous tissues. Hemostasis achieved along the way using electrocautery. This brought us to the extensor mechanism where a medial parapatellar arthrotomy in a mid vastus splitting technique was performed. The patella was retracted into the lateral gutter. The soft tissues were elevated from the anterior aspect of the femur. At the level of the tibia the soft tissue elevated medially excising a portion of the meniscus as well as protecting the medial-sided soft tissues. Similarly on the lateral side a portion of the fat pad, portion of the meniscus were excised. The lateral-sided soft tissues were elevated protecting them as well. The ACL was resected. We turned our attention then to the femur. Standard Intermedullary hole was established. The cutting guide was set for 5 degrees of valgus with a standard cut. It was held in place with pins and the surface resected flat. The sizing guide was then used. The femur was sized to a G. The 3 degree external rotation pins were set. The all in 1 cutting guide for this size was placed over the pins and centered over the distal cut. Following this the anterior and anterior chamfer cuts, the posterior and posterior chamfer cuts, the patellar recess cuts, as well as the lug holes were made. The guide was removed. The bony fragments removed and we turned our attention to the tibia. The remainder of the medial and lateral menisci were excised. The extramedullary guide was then used in standard fashion referencing the tibial tubercle, the subcutaneous border of the tibia, and the middle of the ankle. The slope was then set. The cut was referenced from the more worn size for a minimal cut. The surface was then resected. The bony segment removed. The tibia was then trialed to a size 7. It was aligned as the extramedullary guide had been. A 10 mm trial insert was put into place. The femoral trial was also applied with good fit. The alignment of the leg was excellent. The knee was then placed through a range of motion which demonstrated full extension full flexion stable medially and laterally at 0, 30, 60, and 90 degrees of flexion. Patella tracked centrally. Turning our attention to the patella. The soft tissues were elevated circumferentially. The surface was resected flat. It sized to 38 mm. the lug hole was drilled in standard fashion. The trial component was put into place with excellent fit. It tracked nicely through flexion and extension. Therefore the trial sizes were appropriate and therefore the permanent components were selected and brought up onto the table. The trial components were then all removed after the peg holes for the tibia were made. The tourniquet was then let down with total tourniquet time of 64 minutes. The area of the lateral geniculate artery was identified and cauterized. At this point there was bleeding in multiple areas. Obvious areas were cauterized. The tourniquet was reinflated after 3 minutes. Any excessive bleeding points were also cauterized. The tourniquet was then let down again at now total time of 70 minutes. The knee was then thoroughly irrigated. There was a small oozing bleeding but nothing significant. The permanent components were brought up onto the table. The tibia followed by the femur followed by the patella were all Press-Fit into place. The knee was placed through range of motion. It had full flexion and extension. It was stable medial and laterally in all positions. Patella tracked centrally. And therefore we proceeded to closure. Wound was thoroughly irrigated. The extensor mechanism was closed with #2 Quill suture. The skin was approximated with 2-0 Polysorb suture. The skin was closed with lamonte. Sterile dressing was then applied. The patient was then transferred supine to the room bed and taken to the recovery room in good condition. Intraoperatively a 2nd unit a transxemic acid was given at the time of closure. There was approximately 125 cc of blood loss. No intraop transfusions or complications. .
--- NOTE | 2021-06-04 07:34 | MHC.SHP ---
Pre-Procedural Eval Section A Date of Service: 06/04/21 The patient is an INPATIENT: No Changes since office visit: No Cold of Flu in the past 2 weeks, No New Medical Problems, No Changes in Medication and No Patient answered all questions The History & Physical has been completed within 30 days and I have reviewed it.: Yes Section B Chief Complaint: osteoarthritis Allergies: Allergies Allergy/AdvReac Type Severity Reaction Status Date / Time bee pollen [BEE STINGS] Allergy Severe ANAPHYLACTIC Verified 06/04/21 06:23 SHOCK- CARRIES EPI PEN Plan I have reviewed the history and physical and performed a pertinent physical examination on my patient. No changes have occurred unless specified.
[2021-06-04] MEDS: Acetaminophen 325 MG TABLET 975 MG PO (10:52)
[2021-06-04] MEDS: HYDROmorphone HCl 0.5 MG/0.5 ML SYRINGE IVPUSH ×3 (11:40→23:22)
[2021-06-04] MEDS: HYDROcodone Bit/Acetam 5/325 TABLET 1 TAB PO (12:22)
[2021-06-04] MEDS: Ketorolac Tromethamine 15 MG/ML VIAL IVPUSH ×3 (12:23→23:16)
[2021-06-04] MEDS: ondansetron HCL 4 MG/2 ML VIAL IVPUSH ×2 (13:04→21:08)
--- NOTE | 2021-06-04 14:41 | P.CONIM_ITS ---
History of Present Illness Data of Consult Service Date: 06/04/21 Requesting physician: Olegario Jackson Primary Care Provider: XIOMY Draper HPI Reason for consult: medical issues This is a 56yo M with morbid obesity s/p sleeve gastrectomy, HTN, HLD, DM2 that resolved after bariatric surgery, CLARITA on CPAP, and depression/anxiety s/p Right TKA for OA.? The hospitalist team was consultated for management of comorbid problems. Patient reports pain in his right knee as well as nausea. He denies any abdominal pain, chest pain, shortness of breath. Review of Systems Review of Systems: Yes all other systems are reviewed and are negative Constitutional: Constitutional: Denies chills and Denies fever(s) Cardiovascular: Cardiovascular: Denies chest pain and Denies dyspnea Respiratory: Respiratory: Denies cough and Denies dyspnea Gastrointestinal: Gastrointestinal: Denies abdominal pain PMFSH Medical History Chronic pain syndrome Elevated cholesterol HTN (hypertension) Sleep apnea Type 2 diabetes mellitus Functional capacity: independent ambulation Family History Mother Parkinson disease Surgical History H/O bariatric surgery H/O colonoscopy History of total left knee replacement (TKR) Hx of appendectomy Hx of arthroscopic knee surgery Hx of foot surgery Hx of foot surgery Hx of hand surgery Hx of lumbar discectomy Hx of right inguinal hernia repair Social History Household Members: Family Housing: House Are you a primary cardiac care nurse to a significant other at home: No Do you presently have visiting nurse or other home services: No Patient Tobacco Use Status: Former Tobacco user Quit Date: 2005 Tobacco use type: Cigarette Years Smoked: 15 Use of substances other than those prescribed or required for medical reasons: No Have you been hit, kicked, punched, or otherwise hurt by someone within the past year? If so, by whom?: No Are you DNR?: No Advance Directives: No Advance Directives Information Provided: No Advance Directives on File: No Recently lost weight without trying: No How much weight loss: 2-13 pounds Eating poorly because of decreased appetite: No Nutrition screen score: 1 Nutrition Risks: No Nutritional Risk service: No Current occupational status: unemployed Current occupation: Right Handed Meds Allergies Allergy/AdvReac Type Severity Reaction Status Date / Time bee pollen [BEE STINGS] Allergy Severe ANAPHYLACTIC Verified 06/04/21 06:23 SHOCK- CARRIES EPI PEN Active Medications: Current Medications Generic Name Dose Route Start Last Admin Trade Name Freq PRN Reason Stop Dose Admin Hydrocodone Bitart/Acetaminophen 1 tab 06/04/21 11:57 06/04/21 12:22 Hydrocodone Bit/Acetam 5/325 Tablet PO 1 tab Q4H PRN Administration pain Hydrocodone Bitart/Acetaminophen 1 tab 06/04/21 14:31 Hydrocodone Bit/Acetam 10/325 Tablet PO Q4H PRN pain Aspirin 325 mg 06/05/21 22:00 Aspirin 325 Mg Tablet PO BID BHARTI Hydromorphone HCl 0.5 mg 06/04/21 11:03 06/04/21 11:40 Hydromorphone Hcl 0.5 Mg/0.5 Ml Syringe IVPUSH 0.5 mg Q4H PRN Administration Pain, Severe (Pain Scale 7-10) Protocol Lactated Ringer's 1,000 mls @ 80 mls/hr 06/04/21 06:15 06/04/21 11:43 Lr IVCONT 80 mls/hr .[id number] BHARTI Administration Ketorolac Tromethamine 15 mg 06/04/21 11:03 06/04/21 12:23 Ketorolac Tromethamine 15 Mg/Ml Vial IVPUSH 15 mg Q6H BHARTI Administration Ondansetron HCl 4 mg 06/04/21 08:46 Ondansetron Hcl 4 Mg/2 Ml Vial IVPUSH ONCE PRN Nausea and Vomiting Ondansetron HCl 4 mg 06/04/21 11:03 06/04/21 13:04 Ondansetron Hcl 4 Mg/2 Ml Vial IVPUSH 4 mg Q8H PRN Administration Nausea and Vomiting Sodium Chloride 3 ml 06/04/21 16:00 0.9 % Sodium Chloride Flush 3 Ml Syringe IVFLUSH [facility] Sodium Chloride 3 ml 06/04/21 16:00 0.9 % Sodium Chloride Flush 3 Ml Syringe IVFLUSH [facility] Home Medications Medication Instructions Recorded Confirmed Last Taken Type amitriptyline 25 mg tablet 25 mg PO BEDTIME 11/18/20 05/18/21 Unknown History citalopram 40 mg tablet 40 mg PO BEDTIME 11/18/20 05/18/21 Unknown History lisinopril 10 mg tablet 10 mg PO BEDTIME 11/18/20 05/18/21 Unknown History zolpidem 5 mg tablet (Ambien) 5 mg PO BEDTIME PRN 11/18/20 05/18/21 Unknown History epinephrine 0.3 mg/0.3 mL 0.3 mg IM Q10M PRN 02/11/21 05/18/21 Unknown History injection, auto-injector (EpiPen) tramadol 50 mg tablet 50 mg PO Q6H PRN 02/11/21 05/18/21 Unknown History atorvastatin 20 mg tablet 1 tab PO DAILY 02/16/21 05/18/21 Unknown History Physical Exam Vital Signs and Narrative: Vital Signs: Last Vital Signs Temp 97.0 F 06/04/21 12:00 Pulse 58 06/04/21 14:10 Resp 18 06/04/21 12:00 BP 147/83 H 06/04/21 14:10 Pulse Ox 99 06/04/21 14:10 Body Mass Index 39.2 Const: Nutritional Appearance: well nourished Orientation/consciousness: p atient oriented x3 HENMT: Head: Yes normocephalic and Yes atraumatic Eyes: Sclerae: sclerae normal Chest: Chest palpation & inspection: normal inspection of the chest Resp: Effort & Inspection: normal respiratory effort and no respiratory distress Auscultation: clear to auscultation bilaterally Cardio: Rate: regular rate Rhythm: regular rhythm GI: Palpation (GI): Soft to palpation and nontender Neuro: General: patient oriented x3 Cranial nerves: Yes CN's II-XII intact bilaterally and Yes Bilaterally intact EOM present Extrem: Other: right knee wrapped in alfred bandage Results Labs CBC and Chem 7: 05/13/21 10:35 05/13/21 10:35 Labs: Laboratory Results - last 24 hr 06/04/21 06:20 COVID-19 ([facility]) Negative COVID-19 Clin Com See Note Assessment and Plan (1) Primary osteoarthritis of right knee: Status: Acute This is a 56yo M with morbid obesity s/p sleeve gastrectomy, HTN, HLD, DM2 that resolved after bariatric surgery, CLARITA on CPAP, and depression/anxiety s/p right TKA for OA medicine consultation for management of comorbid problems HTN - resume lisinopril depression/anxiety - continue formulary equivalent for citalopram, amitriptyline HLD - continue atorvastatin CLARITA - CPAP at night hx DM2 - resolved after sleeve gastrectomy VTE ppx - full-dose ASA bid as per orthopedics team postop TKA -analgesia, PT, dispo planning as per orthopedics team -recommend following CBC, BMP obesity BMI 39.2 Thank you for this consult.? We will follow along with you. Attending: Dr. Ramirez
[2021-06-04] MEDS: 0.9 % Sodium Chloride Flush 3 ML SYRINGE IVFLUSH (16:39)
[2021-06-04] MEDS: Escitalopram Oxalate 20 MG TABLET PO (21:08)
[2021-06-04] MEDS: Amitriptyline HCl 25 MG TABLET PO (21:08)
[2021-06-04] MEDS: lisinopriL 10 MG TABLET PO (21:08)
[2021-06-05] VITALS (9 sets, daily range): BP systolic 129–150; BP diastolic 60–81; PULSE 55–78; RESP 14–18; TEMP 36.3–37.7; O2SAT 94–98
[2021-06-05] MEDS: Lactated Ringers 1,000 ML 80 ML IVCONT ×2 (00:42→13:18)
[2021-06-05] MEDS: HYDROmorphone HCl 0.5 MG/0.5 ML SYRINGE IVPUSH ×4 (03:36→17:38)
[2021-06-05] MEDS: ondansetron HCL 4 MG/2 ML VIAL IVPUSH (05:01)
[2021-06-05] MEDS: Ketorolac Tromethamine 15 MG/ML VIAL IVPUSH ×4 (05:01→23:04)
[2021-06-05] MEDS: oxyCODONE HCl Immed Release 5 MG TABLET PO (08:19)
[2021-06-05] MEDS: Atorvastatin Calcium 20 MG TABLET PO (08:19)
[2021-06-05] MEDS: Aspirin 325 MG TABLET PO ×2 (08:21→20:07)
--- NOTE | 2021-06-05 08:22 | PM.PNORT ---
Subjective Subjective Date of Service: 06/05/21 Interval history: POD1 post right TKA with Dr. Jackson. Patient states that he is having difficulty with pain management. We had a discussion and he states that he has previously tolerated Percocet. We will adjust meds accordingly. Patient is also complaining of significant heartburn. He is lying in bed in the patient and is unwilling to fully extend the right knee. Physical Exam Vital Signs: Vital Signs: Last Vital Signs Temp 97.3 F 06/05/21 07:33 Pulse 67 06/05/21 07:33 Resp 17 06/05/21 07:33 BP 147/81 H 06/05/21 07:33 Pulse Ox 97 06/05/21 07:33 Body Mass Index 39.2 Const: General: cooperative, healthy appearing and no acute distress Resp: Effort & Inspection: normal respiratory effort and able to speak in complete sentences Cardio: Rate: regular rate Peripheral pulses: Peripheral pulses 2+ throughout GI: Palpation (GI): Soft to palpation Skin: Lesions: no lesions Rashes: no rashes Extrem: Other: Right knee held in flexion. Aquacel dressing is clean dry and intact. No drainage. Patient is able to dorsiflex and plantar flex. Sensation intact. Pedal pulse intact. Procedures Date of Service Date of Service: 06/05/21 Progress Note: A&P Assessment and plan (1) Status post total right knee replacement: Status: Acute Assessment and Plan: Continue pain mgmnt Begin ASA for dvt ppx begin PT for RTKA Dispo planning-Pending PT eval, pain mgmnt Fall Risk Details Current Medications: Current Medications Generic Name Dose Route Start Last Admin Trade Name Celso PRN Reason Stop Dose Admin Amitriptyline HCl 25 mg 06/04/21 21:00 06/04/21 21:08 Amitriptyline Hcl 25 Mg Tablet PO 25 mg BEDTIME BHARTI Administration Aspirin 325 mg 06/05/21 22:00 Aspirin 325 Mg Tablet PO BID BHARTI Aspirin 325 mg 06/05/21 09:00 06/05/21 08:21 Aspirin 325 Mg Tablet PO 325 mg BID BHARTI Administration Atorvastatin Calcium 20 mg 06/05/21 09:00 06/05/21 08:19 Atorvastatin Calcium 20 Mg Tablet PO 20 mg DAILY BHARTI Administration Escitalopram Oxalate 20 mg 06/04/21 21:00 06/04/21 21:08 Escitalopram Oxalate 20 Mg Tablet PO 20 mg BEDTIME BHARTI Administration Hydromorphone HCl 0.5 mg 06/04/21 11:03 06/05/21 08:19 Hydromorphone Hcl 0.5 Mg/0.5 Ml Syringe IVPUSH 0.5 mg Q4H PRN Administration Pain, Severe (Pain Scale 7-10) Protocol Lactated Ringer's 1,000 mls @ 80 mls/hr 06/04/21 06:15 06/05/21 00:42 Lr IVCONT 80 mls/hr .[id number] BHARTI Administration Ketorolac Tromethamine 15 mg 06/04/21 11:03 06/05/21 05:01 Ketorolac Tromethamine 15 Mg/Ml Vial IVPUSH 15 mg Q6H BHARTI Administration Lisinopril 10 mg 06/04/21 21:00 06/04/21 21:08 Lisinopril 10 Mg Tablet PO 10 mg BEDTIME BHARTI Administration Protocol Omeprazole 20 mg 06/05/21 16:30 Omeprazole [address] MARIANO BID@0630,1630 [facility] Ondansetron HCl 4 mg 06/04/21 08:46 06/05/21 05:01 Ondansetron Hcl 4 Mg/2 Ml Vial IVPUSH 4 mg ONCE PRN Administration Nausea and Vomiting Ondansetron HCl 4 mg 06/04/21 11:03 06/04/21 13:04 Ondansetron Hcl 4 Mg/2 Ml Vial IVPUSH 4 mg Q8H PRN Administration Nausea and Vomiting Oxycodone HCl 5 mg 06/05/21 09:00 06/05/21 08:19 Oxycodone Hcl Immed Release 5 Mg Tablet PO 5 mg Q4H BHARTI Administration Sodium Chloride 3 ml 06/04/21 16:00 06/05/21 08:19 0.9 % Sodium Chloride Flush 3 Ml Syringe IVFLUSH Not Given QSHIFT [facility] Zolpidem Tartrate 5 mg 06/04/21 14:46 Zolpidem Tartrate 5 Mg Tablet PO BEDTIME PRN Insomnia Time Spent With Patient Time: Total time spent is greater than 50% in coordination of care (as documented) at patient's floor/unit and/or counseling patient: Time with patient: less than 15 minutes Quality Stroke Does the patient have a stroke diagnosis?: No Reason for No Anti-thrombotic by Day Two: N/A - Med Ordered VTE Prior VTE?: No VTE Risk Level:: Surgical - high VTE Device Contraindication: N/A - Device Ordered VTE Drug Contraindication: N/A - Med Ordered
[2021-06-05] MEDS: Omeprazole 20 MG CAPSULE.DR PO ×2 (09:04→17:39)
[2021-06-05 09:08] LABS: Hematocrit 37.9 % (42-52); Hemoglobin 12.6 g/dl (14.0-18.0)
[2021-06-05 09:31] LABS: Anion Gap 12 (12-20); Blood Urea Nitrogen 12 mg/dL (9-16); Calcium 9.1 mg/dL (8.4-10.2); Carbon Dioxide 26 mmol/L (22-29); Chloride 106 mmol/L (96-108); Creatinine Clr Calc Pharmacy 167.6; Estimated Glomerular Filt Rate > 60; Glucose Random 110 mg/dL (60-115); Potassium 4.2 mmol/L (3.3-5.1); Sodium 140 mmol/L (135-145)
--- NOTE | 2021-06-05 10:38 | HO.POSTANES ---
Post Anesthesia Evaluation Post Anesthesia Evaluation Vital Signs: Vital Signs Temp Pulse Resp BP Pulse Ox 06/05/21 09:27 67 147/81 H 97 06/05/21 07:33 97.3 F 67 17 147/81 H 97 06/05/21 03:51 98.2 F 73 18 150/69 H 95 06/04/21 23:18 98.5 F 74 18 124/75 95 Anesthesia: Spinal Mental Status: Awake Pain Control: Satisfactory Nausea/Vomiting: None Hydration: Adequate Anesthesia-Related Issues: No Anes. Related Issues
[2021-06-05] MEDS: oxyCODONE HCl Immed Release 5 MG TABLET 10 MG PO ×3 (10:41→20:08)
[2021-06-05] MEDS: Acetaminophen 325 MG TABLET PO ×2 (10:42→14:31)
--- NOTE | 2021-06-05 11:05 | HO.PM.IMPN ---
Subjective Subjective Date of Service: 06/05/21 Interval History: seen and examined this morning fever x1 overnight reporting ongoing pain in knee also reporting acid reflux and nausea did not eat breakfast due to acid reflux and nausea, voiding without difficulty; BM yesterday Review of Systems Review of Systems: Yes all other systems are reviewed and are negative Constitutional Constitutional: Denies chills and Denies fever(s) Cardiovascular Cardiovascular: Denies chest pain Respiratory Respiratory: Denies cough Physical Exam Vital Signs: Vital Signs: Last Vital Signs Temp 97.3 F 06/05/21 07:33 Pulse 67 06/05/21 09:27 Resp 17 06/05/21 07:33 BP 147/81 H 06/05/21 09:27 Pulse Ox 97 06/05/21 09:27 Body Mass Index 39.2 Const: Nutritional Appearance: well nourished Orientation/consciousness: patient oriented x3 HENMT: Head: Yes normocephalic and Yes atraumatic Eyes: Sclerae: sclerae normal Chest: Chest palpation & inspection: normal inspection of the chest Resp: Effort & Inspection: normal respiratory effort and no respiratory distress Auscultation: clear to auscultation bilaterally Cardio: Rate: regular rate Rhythm: regular rhythm GI: Palpation (GI): Soft to palpation, nontender and no guarding Neuro: General: patient oriented x3 Cranial nerves: Yes CN's II-XII intact bilaterally and Yes Bilaterally intact EOM present Extrem: Other: right knee dressing clean/dry/intact Objective Data Current Medications Generic Name Dose Route Start Last Admin Trade Name Freq PRN Reason Stop Dose Admin Acetaminophen 325 mg 06/05/21 08:38 06/05/21 10:42 Acetaminophen 325 Mg Tablet PO 325 mg Q4H PRN Administration pain Amitriptyline HCl 25 mg 06/04/21 21:00 06/04/21 21:08 Amitriptyline Hcl 25 Mg Tablet PO 25 mg BEDTIME BHARTI Administration Aspirin 325 mg 06/05/21 22:00 Aspirin 325 Mg Tablet PO BID BHARTI Aspirin 325 mg 06/05/21 09:00 06/05/21 08:21 Aspirin 325 Mg Tablet PO 325 mg BID BHARTI Administration Atorvastatin Calcium 20 mg 06/05/21 09:00 06/05/21 08:19 Atorvastatin Calcium 20 Mg Tablet PO 20 mg DAILY BHARTI Administration Escitalopram Oxalate 20 mg 06/04/21 21:00 06/04/21 21:08 Escitalopram Oxalate 20 Mg Tablet PO 20 mg BEDTIME BHARTI Administration Hydromorphone HCl 0.5 mg 06/04/21 11:03 06/05/21 08:19 Hydromorphone Hcl 0.5 Mg/0.5 Ml Syringe IVPUSH 0.5 mg Q4H PRN Administration Pain, Severe (Pain Scale 7-10) Protocol Lactated Ringer's 1,000 mls @ 80 mls/hr 06/04/21 06:15 06/05/21 00:42 Lr IVCONT 80 mls/hr .[id number] BHARTI Administration Ketorolac Tromethamine 15 mg 06/04/21 11:03 06/05/21 10:41 Ketorolac Tromethamine 15 Mg/Ml Vial IVPUSH 15 mg Q6H BHARTI Administration Lisinopril 10 mg 06/04/21 21:00 06/04/21 21:08 Lisinopril 10 Mg Tablet PO 10 mg BEDTIME BHARTI Administration Protocol Omeprazole 20 mg 06/05/21 16:30 06/05/21 09:04 Omeprazole 20 Mg Capsule.Dr PO 20 mg BID@0630,1630 BHARTI Administration Ondansetron HCl 4 mg 06/04/21 08:46 06/05/21 05:01 Ondansetron Hcl 4 Mg/2 Ml Vial IVPUSH 4 mg ONCE PRN Administration Nausea and Vomiting Ondansetron HCl 4 mg 06/04/21 11:03 06/04/21 13:04 Ondansetron Hcl 4 Mg/2 Ml Vial IVPUSH 4 mg Q8H PRN Administration Nausea and Vomiting Oxycodone HCl 10 mg 06/05/21 08:38 06/05/21 10:41 Oxycodone Hcl Immed Release 5 Mg Tablet PO 10 mg Q4H PRN Administration pain Sodium Chloride 3 ml 06/04/21 16:00 06/05/21 08:19 0.9 % Sodium Chloride Flush 3 Ml Syringe IVFLUSH Not Given QSHIFT BHARTI Zolpidem Tartrate 5 mg 06/04/21 14:46 Zolpidem Tartrate 5 Mg Tablet PO BEDTIME PRN Insomnia Labs CBC & Chem 7: 06/05/21 08:11 06/05/21 08:11 Labs: Laboratory Results - last 24 hr 06/05/21 08:11 Anion Gap 12 Estim Creat Clear Calc 167.6 Estimated GFR > 60 Random Glucose 110 Calcium 9.1 Assessment and Plan (1) Status post total right knee replacement: Status: Acute Assessment and Plan: This is a 56yo M with morbid obesity s/p sleeve gastrectomy, HTN, HLD, DM2 that resolved after bariatric surgery, CLARITA on CPAP, and depression/anxiety s/p right TKA for OA medicine consultation for management of comorbid problems Fever 100.5 x1 overnight likely post op fever if recurrent fever would consider infectious workup HTN - resume lisinopril depression/anxiety - continue formulary equivalent for citalopram, amitriptyline HLD - continue atorvastatin CLARITA - CPAP at night hx DM2 - resolved after sleeve gastrectomy postop TKA -analgesia, PT, dispo planning as per orthopedics team -recommend following CBC, BMP obesity BMI 39.2 DVT ppx - full dose asa bid as per ortho Attending: Dr. Ramirez Quality Stroke Does the patient have a stroke diagnosis?: No Reason for No Anti-thrombotic by Day Two: N/A - Med Ordered VTE Prior VTE?: No VTE Risk Level:: Surgical - high VTE Device Contraindication: N/A - Device Ordered VTE Drug Contraindication: N/A - Med Ordered
--- NOTE | 2021-06-05 15:00 | MHC.CLN ---
NUTRITION REPORTED THAT HAD GASTRIC SLEEVE SURGERY FEBRUARY 2020. DOES NOT TAKE PROTEIN SHAKES. TYPICALLY EATS SMALLER PORTIONS. CONTINUE REGULAR DIET PER PREFERENCE.
--- NOTE | 2021-06-05 15:44 | MHC.CM.PN ---
CM MET WITH PT WHO REPORTS HE LIVES ALONE AND IS INDEPENDENT AT BASELINE. PT REPORTS HE HAS A CANE AND A WALKER AT HOME. PT DOES NOT HAVE A HCP AND DOES NOT WANT TO COMPLETE ONE TODAY. PT CONFIRMS HIS PCP IS KERRY SANZ. DC PLAN IS TBD PENDING PT EVAL AND PT CONDITION. CM WILL CHECK IN WITH PT Tuesday TO FURTHER DISCUSS DC PLANS
[2021-06-05] MEDS: Amitriptyline HCl 25 MG TABLET PO (20:07)
[2021-06-05] MEDS: Escitalopram Oxalate 20 MG TABLET PO (20:08)
[2021-06-05] MEDS: lisinopriL 10 MG TABLET PO (20:08)
[2021-06-05] MEDS: 0.9 % Sodium Chloride Flush 3 ML SYRINGE IVFLUSH (20:09)
[2021-06-05] MEDS: Zolpidem Tartrate 5 MG TABLET PO (20:10)
[2021-06-06] VITALS (10 sets, daily range): BP systolic 114–149; BP diastolic 65–75; PULSE 76–83; RESP 14–20; TEMP 35.5–37; O2SAT 96–98
[2021-06-06] MEDS: Lactated Ringers 1,000 ML 80 ML IVCONT ×3 (02:11→20:21)
[2021-06-06] MEDS: HYDROmorphone HCl 0.5 MG/0.5 ML SYRINGE IVPUSH ×4 (02:14→20:22)
[2021-06-06] MEDS: Omeprazole 20 MG CAPSULE.DR PO ×2 (05:17→17:02)
[2021-06-06] MEDS: Ketorolac Tromethamine 15 MG/ML VIAL IVPUSH ×4 (05:17→23:07)
[2021-06-06 07:41] LABS: Hematocrit 33.1 % (42-52); Hemoglobin 11.1 g/dl (14.0-18.0)
[2021-06-06] MEDS: Aspirin 325 MG TABLET PO ×2 (08:36→20:21)
[2021-06-06] MEDS: Atorvastatin Calcium 20 MG TABLET PO (08:37)
--- NOTE | 2021-06-06 09:12 | PM.PNORT ---
Subjective Subjective Date of Service: 06/06/21 Interval history: POD2 s/p right TKA with Dr. Jackson. Patient was resting comfortably in bed. Pain is well managed. Having some nausea. Heart burn has resolved. No additional complaints. Physical Exam Vital Signs: Vital Signs: Last Vital Signs Temp 98 F 06/06/21 07:12 Pulse 79 06/06/21 07:12 Resp 20 06/06/21 08:36 BP 149/70 H 06/06/21 07:12 Pulse Ox 96 06/06/21 07:12 Body Mass Index 39.2 Const: General: cooperative, healthy appearing and no acute distress Resp: Effort & Inspection: normal respiratory effort and able to speak in complete sentences Cardio: Rate: regular rate Peripheral pulses: Peripheral pulses 2+ throughout GI: Palpation (GI): Soft to palpation Skin: Lesions: no lesions Rashes: no rashes Extrem: Other: Right knee Aquacel is clean, dry, and intact. No ecchymosis redness or drainage. NVI. Procedures Date of Service Date of Service: 06/06/21 Progress Note: A&P Assessment and plan (1) Status post total right knee replacement: Status: Acute Assessment and Plan: Continue pain mgmnt Contniue ASA for dvt ppx Contniue PT for RTKA Dispo planning-Pending PT stair clearance, pain mgmnt, nausea management Fall Risk Details Current Medications: Current Medications Generic Name Dose Route Start Last Admin Trade Name Freq PRN Reason Stop Dose Admin Acetaminophen 325 mg 06/05/21 08:38 06/05/21 14:31 Acetaminophen 325 Mg Tablet PO 325 mg Q4H PRN Administration pain Amitriptyline HCl 25 mg 06/04/21 21:00 06/05/21 20:07 Amitriptyline Hcl 25 Mg Tablet PO 25 mg BEDTIME BHARTI Administration Aspirin 325 mg 06/05/21 22:00 06/06/21 08:36 Aspirin 325 Mg Tablet PO 325 mg BID BHARTI Administration Aspirin 325 mg 06/05/21 09:00 06/06/21 08:37 Aspirin 325 Mg Tablet PO Not Given BID BHARTI Atorvastatin Calcium 20 mg 06/05/21 09:00 06/06/21 08:37 Atorvastatin Calcium 20 Mg Tablet PO 20 mg DAILY BHARTI Administration Escitalopram Oxalate 20 mg 06/04/21 21:00 06/05/21 20:08 Escitalopram Oxalate 20 Mg Tablet PO 20 mg BEDTIME BHARTI Administration Hydromorphone HCl 0.5 mg 06/04/21 11:03 06/06/21 08:36 Hydromorphone Hcl 0.5 Mg/0.5 Ml Syringe IVPUSH 0.5 mg Q4H PRN Administration Pain, Severe (Pain Scale 7-10) Protocol Lactated Ringer's 1,000 mls @ 80 mls/hr 06/04/21 06:15 06/06/21 08:39 Lr IVCONT Not Given .[id number] BHARTI Ketorolac Tromethamine 15 mg 06/04/21 11:03 06/06/21 05:17 Ketorolac Tromethamine 15 Mg/Ml Vial IVPUSH 15 mg Q6H BHARTI Administration Lisinopril 10 mg 06/04/21 21:00 06/05/21 20:08 Lisinopril 10 Mg Tablet PO 10 mg BEDTIME BHARTI Administration Protocol Omeprazole 20 mg 06/05/21 16:30 06/06/21 05:17 Omeprazole 20 Mg Capsule.Dr PO 20 mg BID@0630,1630 BHARTI Administration Ondansetron HCl 4 mg 06/04/21 08:46 06/05/21 05:01 Ondansetron Hcl 4 Mg/2 Ml Vial IVPUSH 4 mg ONCE PRN Administration Nausea and Vomiting Ondansetron HCl 4 mg 06/04/21 11:03 06/04/21 13:04 Ondansetron Hcl 4 Mg/2 Ml Vial IVPUSH 4 mg Q8H PRN Administration Nausea and Vomiting Oxycodone HCl 10 mg 06/05/21 08:38 06/05/21 20:08 Oxycodone Hcl Immed Release 5 Mg Tablet PO 10 mg Q4H PRN Administration pain Sodium Chloride 3 ml 06/04/21 16:00 06/06/21 08:37 0.9 % Sodium Chloride Flush 3 Ml Syringe IVFLUSH Not Given QSHIFT [facility] Zolpidem Tartrate 5 mg 06/04/21 14:46 06/05/21 20:10 Zolpidem Tartrate 5 Mg Tablet PO 5 mg BEDTIME PRN Administration Insomnia Time Spent With Patient Time: Total time spent is greater than 50% in coordination of care (as documented) at patient's floor/unit and/or counseling patient: Time with patient: less than 15 minutes Quality Stroke Does the patient have a stroke diagnosis?: No Reason for No Anti-thrombotic by Day Two: N/A - Med Ordered VTE Prior VTE?: No VTE Risk Level:: Surgical - high VTE Device Contraindication: N/A - Device Ordered VTE Drug Contraindication: N/A - Med Ordered
--- NOTE | 2021-06-06 10:55 | HO.PM.IMPN ---
Subjective Subjective Date of Service: 06/06/21 Interval History: Seen and examined this morning Reports improvement in acid reflux with addition of omeprazole. Continues to experience pain in his knee Reporting nausea with no vomiting or abdominal pain Review of Systems Review of Systems: Yes all other systems are reviewed and are negative Constitutional Constitutional: Denies chills and Denies fever(s) Cardiovascular Cardiovascular: Denies chest pain Respiratory Respiratory: Denies cough Gastrointestinal Gastrointestinal: Denies abdominal pain, Denies heartburn, Denies diarrhea and Reports nausea Physical Exam Vital Signs: Vital Signs: Last Vital Signs Temp 98 F 06/06/21 07:12 Pulse 79 06/06/21 07:12 Resp 20 06/06/21 08:36 BP 149/70 H 06/06/21 07:12 Pulse Ox 96 06/06/21 07:12 Body Mass Index 39.2 Const: Nutritional Appearance: well nourished Orientation/consciousness: patient oriented x3 HENMT: Head: Yes normocephalic and Yes atraumatic Eyes: Sclerae: sclerae normal Chest: Chest palpation & inspection: normal inspection of the chest Resp: Effort & Inspection: normal respiratory effort and no respiratory distress Auscultation: clear to auscultation bilaterally Cardio: Rate: regular rate Rhythm: regular rhythm GI: Palpation (GI): Soft to palpation, nontender and no guarding Neuro: General: patient oriented x3 Cranial nerves: Yes CN's II-XII intact bilaterally and Yes Bilaterally intact EOM present Extrem: Other: right knee dressing clean/dry/intact; mild ecchymosis right thigh Objective Data Current Medications Generic Name Dose Route Start Last Admin Trade Name Celso PRN Reason Stop Dose Admin Acetaminophen 325 mg 06/05/21 08:38 06/05/21 14:31 Acetaminophen 325 Mg Tablet PO 325 mg Q4H PRN Administration pain Amitriptyline HCl 25 mg 06/04/21 21:00 06/05/21 20:07 Amitriptyline Hcl 25 Mg Tablet PO 25 mg BEDTIME BHARTI Administration Aspirin 325 mg 06/05/21 22:00 06/06/21 08:36 Aspirin 325 Mg Tablet PO 325 mg BID BHARTI Administration Aspirin 325 mg 06/05/21 09:00 06/06/21 08:37 Aspirin 325 Mg Tablet PO Not Given BID BHARTI Atorvastatin Calcium 20 mg 06/05/21 09:00 06/06/21 08:37 Atorvastatin Calcium 20 Mg Tablet PO 20 mg DAILY BHARTI Administration Escitalopram Oxalate 20 mg 06/04/21 21:00 06/05/21 20:08 Escitalopram Oxalate 20 Mg Tablet PO 20 mg BEDTIME BHARTI Administration Hydromorphone HCl 0.5 mg 06/04/21 11:03 06/06/21 08:36 Hydromorphone Hcl 0.5 Mg/0.5 Ml Syringe IVPUSH 0.5 mg Q4H PRN Administration Pain, Severe (Pain Scale 7-10) Protocol Lactated Ringer's 1,000 mls @ 80 mls/hr 06/04/21 06:15 06/06/21 08:39 Lr IVCONT Not Given .[id number] BHARTI Ketorolac Tromethamine 15 mg 06/04/21 11:03 06/06/21 05:17 Ketorolac Tromethamine 15 Mg/Ml Vial IVPUSH 15 mg Q6H BHARTI Administration Lisinopril 10 mg 06/04/21 21:00 06/05/21 20:08 Lisinopril 10 Mg Tablet PO 10 mg BEDTIME BHARTI Administration Protocol Omeprazole 20 mg 06/05/21 16:30 06/06/21 05:17 Omeprazole 20 Mg Capsule.Dr PO 20 mg BID@0630,1630 [facility] Administration Ondansetron HCl 4 mg 06/04/21 08:46 06/05/21 05:01 Ondansetron Hcl 4 Mg/2 Ml Vial IVPUSH 4 mg ONCE PRN Administration Nausea and Vomiting Ondansetron HCl 4 mg 06/04/21 11:03 06/04/21 13:04 Ondansetron Hcl 4 Mg/2 Ml Vial IVPUSH 4 mg Q8H PRN Administration Nausea and Vomiting Oxycodone HCl 10 mg 06/05/21 08:38 06/05/21 20:08 Oxycodone Hcl Immed Release 5 Mg Tablet PO 10 mg Q4H PRN Administration pain Sodium Chloride 3 ml 06/04/21 16:00 06/06/21 08:37 0.9 % Sodium Chloride Flush 3 Ml Syringe IVFLUSH Not Given QSHIFT [facility] Zolpidem Tartrate 5 mg 06/04/21 14:46 06/05/21 20:10 Zolpidem Tartrate 5 Mg Tablet PO 5 mg BEDTIME PRN Administration Insomnia Labs CBC & Chem 7: 0828/21 07:28 06/05/21 08:11 Assessment and Plan (1) Status post total right knee replacement: Status: Acute Assessment and Plan: This is a 56yo M with morbid obesity s/p sleeve gastrectomy, HTN, HLD, DM2 that resolved after bariatric surgery, CLARITA on CPAP, and depression/anxiety s/p right TKA for OA medicine consultation for management of comorbid problems Fever 100 x1 overnight likely post op fever no further workup indicated HTN - resume lisinopril depression/anxiety - continue formulary equivalent for citalopram, amitriptyline HLD - continue atorvastatin CLARITA - CPAP at night hx DM2 - resolved after sleeve gastrectomy postop TKA -analgesia, PT, dispo planning as per orthopedics team -recommend following CBC, BMP obesity BMI 39.2 DVT ppx - full dose asa bid as per ortho Will sign off. if you have any questions feel free to reach out. Attending: Dr. Horta Quality Stroke Does the patient have a stroke diagnosis?: No Reason for No Anti-thrombotic by Day Two: N/A - Med Ordered VTE Prior VTE?: No VTE Risk Level:: Surgical - high VTE Device Contraindication: N/A - Device Ordered VTE Drug Contraindication: N/A - Med Ordered
[2021-06-06] MEDS: oxyCODONE HCl Immed Release 5 MG TABLET 10 MG PO ×2 (11:54→18:37)
[2021-06-06] MEDS: 0.9 % Sodium Chloride Flush 3 ML SYRINGE IVFLUSH (15:07)
[2021-06-06] MEDS: Amitriptyline HCl 25 MG TABLET PO (20:21)
[2021-06-06] MEDS: Escitalopram Oxalate 20 MG TABLET PO (20:21)
[2021-06-06] MEDS: lisinopriL 10 MG TABLET PO (20:22)
[2021-06-06] MEDS: Zolpidem Tartrate 5 MG TABLET PO (20:23)
[2021-06-07] MEDS: HYDROmorphone HCl 0.5 MG/0.5 ML SYRINGE IVPUSH ×2 (03:57→08:11)
[2021-06-07 04:00] VITALS: BP 130/68; PULSE 72; RESP 16; TEMP 36.9; O2SAT 97
[2021-06-07] MEDS: Omeprazole 20 MG CAPSULE.DR PO (05:56)
[2021-06-07] MEDS: Ketorolac Tromethamine 15 MG/ML VIAL IVPUSH ×2 (05:56→11:50)
[2021-06-07 07:19] VITALS: BP 152/71; PULSE 70; RESP 18; TEMP 35.5; O2SAT 96
[2021-06-07 07:34] LABS: Hematocrit 32.1 % (42-52); Hemoglobin 10.8 g/dl (14.0-18.0)
[2021-06-07 08:11] VITALS: RESP 18
[2021-06-07] MEDS: Aspirin 325 MG TABLET PO (08:11)
[2021-06-07] MEDS: Atorvastatin Calcium 20 MG TABLET PO (08:11)
--- NOTE | 2021-06-07 10:41 | P.DS_ITS ---
DS: Providers Provider Date of Service: 06/07/21 Primary care physician: XIOMY Draper Consults: 06/04/21 11:03 Consult to Hospitalist Routine Consulting Provider: Hospitalist Reason For Exam: medical issues DS: Diagnosis Discharge Diagnosis (1) Status post total right knee replacement: Status: Acute DS: Medications Discharge Medications Home Medications: Home Medications Medication Instructions Recorded Confirmed amitriptyline 25 mg tablet 25 mg PO BEDTIME 11/18/20 05/18/21 citalopram 40 mg tablet 40 mg PO BEDTIME 11/18/20 05/18/21 lisinopril 10 mg tablet 10 mg PO BEDTIME 11/18/20 05/18/21 zolpidem 5 mg tablet (Ambien) 5 mg PO BEDTIME PRN 11/18/20 05/18/21 epinephrine 0.3 mg/0.3 mL 0.3 mg IM Q10M PRN 02/11/21 05/18/21 injection, auto-injector (EpiPen) tramadol 50 mg tablet 50 mg PO Q6H PRN 02/11/21 05/18/21 atorvastatin 20 mg tablet 1 tab PO DAILY 02/16/21 05/18/21 Previous Rx's Medication Instructions Recorded walker #1 ea 02/18/21 hydrocodone 10 mg-acetaminophen 1 tab PO Q4H PRN 7 Days #42 tab 06/04/21 325 mg tablet aspirin 325 mg tablet 325 mg PO BID 30 Days #60 tab 06/07/21 omeprazole 20 mg capsule,delayed 20 mg PO BID@0630,1630 30 Days #60 06/07/21 release cap ondansetron HCl 4 mg tablet 4 mg PO Q8H PRN 7 Days #21 tab 06/07/21 (Zofran) oxycodone-acetaminophen 5 mg-325 2 tab PO Q4H PRN 7 Days #84 tab 06/07/21 mg tablet (Percocet) DS: Summary Hospital Course Hospital Course: Mr. Dorman is a 56 yo male who presents to the office for ongoing right knee pain. He was found to have osteoarthritis of the right knee and had tried and failed all conservative treatment. therefore, he elected to move forward with a right total knee arthroplasty with Dr. Jackson. The patient underwent a successful right total knee arthroplasty, they were transferred to PACU and then to the floor to recover. During their stay, their vitals were stable, afebrile at 96.0. Labs were unremarkable, H/H 10.8-32.1. POD 1 they were started on Aspirin 325mg po bid for DVT ppx, they also received Physical Therapy services twice a day. Prior to discharge, their dressing was changed, incision clean dry and intact, new Aquacel dressing applied and the plan was to be discharged home with VNA services. Time Spent with Patient Time attestation: Total time spent providing and/or coordinating discharge services: Discharge coordination time: Less than 30 minutes Quality: Stroke Does the patient have a stroke diagnosis?: No Physical Exam Vital Signs: Vital Signs: Last Vital Signs Temp 96 F L 06/07/21 07:19 Pulse 70 06/07/21 07:19 Resp 18 06/07/21 08:11 BP 152/71 H 06/07/21 07:19 Pulse Ox 96 06/07/21 07:19 Body Mass Index 39.2 Extrem: Other: Right knee Aquacel is clean. dry, and intact. No redness or drainage. Morenci intact. NVI DS: Data Data Completed and Pending Completed studies during hospitalization [Text1]: Pending at discharge 06/04/21 09:50 Surgical [PTH] Routine Procedures Replacement of Left Knee Joint with Synthetic Substitute, Uncemented, Open Approach (02/16/21) Labs on day of discharge: Laboratory Results - last 24 hr 06/07/21 07:09 Hgb 10.8 L Hct 32.1 L Discharge Plan Discharge Patient Disposition: Home, Self-Care Referrals: Ny Lane PA-C [Physician Fretted String Instrument Repairer] - 1 Week (06/23/21 at 9:45am) Discharge Medications: New hydrocodone-acetaminophen 10-325 mg Tablet 1 tab PO Q4H PRN (Reason: pain) 7 Days Qty: 42 RF: 0 aspirin 325 mg Tablet 325 mg PO BID 30 Days Qty: 60 RF: 0 omeprazole 20 mg Capsule,Delayed Release(Dr/Ec) 20 mg PO BID@0630,1630 30 Days Qty: 60 RF: 0 oxycodone-acetaminophen [Percocet] 5-325 mg tablet 2 tab PO Q4H PRN (Reason: pain (scale score 4-6)) 7 Days Qty: 84 RF: 0 ondansetron HCl [Zofran] 4 mg tablet 4 mg PO Q8H PRN (Reason: nausea and vomiting) 7 Days Qty: 21 RF: 0 Continued (DME) walker Misc See Rx Instructions .ROUTE .MEDSUPPLY Qty: 1 RF: 0 tramadol 50 mg Tablet 50 mg PO Q6H PRN (Reason: Pain) RF: 0 epinephrine [EpiPen] 0.3 mg/0.3 mL Auto-Injector 0.3 mg IM Q10M PRN (Reason: Anaphylaxis) RF: 0 atorvastatin 20 mg tablet 1 tab PO DAILY RF: 0 lisinopril 10 mg tablet 10 mg PO BEDTIME RF: 0 amitriptyline 25 mg tablet 25 mg PO BEDTIME RF: 0 citalopram 40 mg tablet 40 mg PO BEDTIME RF: 0 zolpidem [Ambien] 5 mg tablet 5 mg PO BEDTIME PRN (Reason: Insomnia) RF: 0 Discharge Orders: Discharge Order (Routine); Ordered 06/07/21 Ordered By: Ny Lane Activity Restrictions/Additional Instructions: Physical Therapy for ROM 0-120, quad strength, gait training. Use walker for ambulation Limit stair climbing, No shower, No tub bath, No driving Continue anticoagulant Keep Aquacel dressing clean, dry and intact. Follow up with orthopedics in 2 weeks
[2021-06-07 11:13] VITALS: BP 150/76; PULSE 71; RESP 18; TEMP 36.1; O2SAT 99
--- NOTE | 2021-06-07 11:25 | MHC.CM.PN ---
Addendum entered by Gabby 06/07/21 12:07: PT WILL NEED HOME PHYSICAL THERAPY. REFERRAL PLACED WITH CHRIS RUSSELLA. Original Note: PT CLEARED TO DC HOME TODAY WITH NO SERVICES
--- NOTE | 2021-06-07 12:05 | W.MHC.F2F ---
Service Date Service Date: 06/07/21 Encounter Date of encounter: 06/07/21 Reasons for Services Reason for physical therapy: home safety and mobility, therapeutic exercises, restore joint function, gait/transfer training, assess need for DME and ADL training Reason for occupational therapy: home safety and mobility, therapeutic exercises, restore joint function, gait/transfer training, assess need for DME and ADL training Homebound: Leaving the home is medically contraindicated at this time without the asist of a device and/or another person due th the listed conditions above and below. Reason homebound: unsteady gait / fall risk, leg weakness, pain with ambulation, pain with transfers and unable to drive Homebound supporting statement: Pt. is considered homebound due to recent surgery. Unable to drive, poor balance, poor gait mechanics. Certification: Based on the above findings, I certify that this patient is confined to the home and needs intermittent [facility] care, physical therapy and/or speech therapy, or continues to need occupational therapy. The patient is under my care, and I have initiated the establishment of the plan of care. The patient will be followed by a physician who will periodically review the plan of care.
== END 2021-06-07 12:33 | disposition home or self-care (01) ==
LOC: HO.SSS 14:17 → HO.S3 14:18
PROVIDERS: Physician Assistant; Physician Assistant Medical; PCP Physician Assistant Medical; Visit Provider Orthopaedic Surgery
PROC: (CPT 27447; principal; 2021-06-04 07:30)
DX: M17.11 Unilateral primary osteoarthritis, right knee (principal); G89.4 Chronic pain syndrome; I10 Essential (primary) hypertension; E11.9 Type 2 diabetes mellitus without complications; G47.33 Obstructive sleep apnea (adult) (pediatric); Z79.899 Other long term (current) drug therapy; Z96.652 Presence of left artificial knee joint; Z98.84 Bariatric surgery status; Z87.891 Personal history of nicotine dependence
CPT/HCPCS: 27447; 36415; 73560; 80048; 83036; 85014; 85018; 85025; 86850; 86900; 86901; 87635; 87640; 87641; 88305; 88311; 97110; 97116; 97162; 97166; C1776; J0690; J1170; J1885; J2250; J2405

== ENCOUNTER → 2021-06-18 10:37 | Outpatient (BNVA) | payer OTHER, SELFPAY | PROVIDERS: PCP Internal Medicine; Visit Provider Physician Assistant | DX: Z47.1 Aftercare following joint replacement surgery (principal); Z96.651 Presence of right artificial knee joint | CPT/HCPCS: 99212 ==

== ENCOUNTER → 2021-06-23 11:01 | Outpatient (BNVA) | payer OTHER, SELFPAY | PROVIDERS: Visit Provider Physician Assistant | DX: Z47.1 Aftercare following joint replacement surgery (principal); Z96.651 Presence of right artificial knee joint | CPT/HCPCS: 99212 ==

== ENCOUNTER → 2021-07-13 10:29 | Outpatient (BNVA) | payer OTHER, SELFPAY | PROVIDERS: Visit Provider Orthopaedic Surgery | DX: Z47.1 Aftercare following joint replacement surgery (principal); Z96.651 Presence of right artificial knee joint; M76.61 Achilles tendinitis, right leg | CPT/HCPCS: 99212 ==

== ENCOUNTER 2021-08-24 09:22 | Outpatient (REF) | payer OTHER, SELFPAY ==
--- NOTE | ~2021-08-24 | XR_ITS ---
EXAMINATION: KNEE X-RAY CLINICAL INFORMATION: Right knee pain COMPARISON: Previous x-rays most recent May 2021 TECHNIQUE: Standing AP view of both knees and lateral and sunrise view of the right knee FINDINGS: Right knee: There is a 3 component right knee replacement in satisfactory position. No fracture, dislocation or x-ray evidence of loosening is seen. There is a small joint effusion. There is a left knee replacement in satisfactory position. There is periosteal reaction along the distal medial left femoral metaphysis that appears unchanged from most recent exam May 2021 and is new from older preknee replacement exam February 2021. XR/XR knee standing BI IMPRESSION: Right knee: Satisfactory appearance of right knee replacement. Small joint effusion. Left knee: Satisfactory appearance of left knee replacement. Periosteal reaction along the medial distal femoral metaphysis similar to May 2021 exam but new from older previous replacement February 2021 exam.
--- NOTE | ~2021-08-24 | XR_ITS ---
EXAMINATION: KNEE X-RAY CLINICAL INFORMATION: Right knee pain COMPARISON: Previous x-rays most recent May 2021 TECHNIQUE: Standing AP view of both knees and lateral and sunrise view of the right knee FINDINGS: Right knee: There is a 3 component right knee replacement in satisfactory position. No fracture, dislocation or x-ray evidence of loosening is seen. There is a small joint effusion. There is a left knee replacement in satisfactory position. There is periosteal reaction along the distal medial left femoral metaphysis that appears unchanged from most recent exam May 2021 and is new from older preknee replacement exam February 2021. XR/XR knee RT 2V IMPRESSION: Right knee: Satisfactory appearance of right knee replacement. Small joint effusion. Left knee: Satisfactory appearance of left knee replacement. Periosteal reaction along the medial distal femoral metaphysis similar to May 2021 exam but new from older previous replacement February 2021 exam.
== END 2021-08-24 09:23 | disposition home or self-care (01) ==
LOC: HO.HOSX 09:22
PROVIDERS: PCP Internal Medicine; Visit Provider Orthopaedic Surgery
DX: M25.561 Pain in right knee (principal); M25.562 Pain in left knee; M76.61 Achilles tendinitis, right leg; Z87.891 Personal history of nicotine dependence; Z96.651 Presence of right artificial knee joint
CPT/HCPCS: 73560; 73565; 99212

== ENCOUNTER 2021-09-18 10:00 | Outpatient (RCR) | payer OTHER, SELFPAY ==
--- NOTE | 2021-07-17 12:50 | MHC.PT.EP ---
[facility] [place] [facility] [place] Office [place] Office [address] Mily Mann [address] [phone] F: [phone] F: [phone] F: [phone] F: [phone] Physical Therapy Plan of Care Date of Evaluation: Date of Surgery: Diagnosis: This is a 56 yo male presenting to skilled PT with a script for s/p R TKA, R leg Achilles tendinitis Assessment: This is a 56 yo male presenting to skilled PT with a script for s/p R TKA, R leg Achilles tendinitis. Patient comes in s/p R TKR (he was here for the L TKR in the past) [place] [place] He reports vomiting and nausea for a week and half after surgery complicating his immediate rehab. He is walking with a straight cane and just started walking more at home. Reports good compliance with HEP. Pain now is located hamstring medially (achy) and has itching on the lateral aspect of the incision. He returns to ortho in 5-6 wks. He reports that his Achilles is bothering him more as well. He has been using lidocaine (helpful) and a tens unit and ice (not as helpful) for symptoms but would like to work on his R Achilles as well. Pain is sharp and swollen. Assessment reveals pain that ranges up to a 4/10. He demos decreased knee and ankle ROM and strength, impaired gait pattern with decreased balance, impaired knee and ankle joint mobility, TTP at medial quad, hamstrings and R Achilles as well as gross functional decline with walking, stairs and standing tolerance. He is a good candidate for skilled PT 2x/wk for 8wks. Frequency and Duration: The patient will be seen 2x/wk for 8wks Short Term Goals: I in HEP Improve extension ROM by at least 10 degs Ambulate without AD Solid Waste Landfill Technician Goals: Demo WFL knee ROM and strength Demo normal gait without compensation Demo reciprocal gait on stairs Improve pain to no more than a 2/10 Treatment Plan: Modalities to reduce pain, spasms and effusion. Manual therapy to restore motion and function. Therapeutic exercise to improve strength and flexibility. Neuromuscular re-education for posture and balance. Therapeutic activities to return to functional activities of daily living. Electronically signed by: Amara Hardy PT Please sign and return to therapist. Thank you for your referral.
--- NOTE | 2021-09-18 12:03 | MHC.PT.DC ---
[facility] [place] Office [place] Office [place] Office [address] Mily Mann [address] [phone] F: [phone] F: [phone] F: [phone] F: [phone] Physical Therapy Discharge Report Diagnosis: This is a 56 yo male presenting to skilled PT with a script for s/p R TKA, R leg Achilles tendinitis Date of Surgery: Date of Evaluation: 07/17/21 Date of Discharge: 09/18/21 Treatments to Date: 18 Cancellations to Date: 1 No Shows to Date: 1 Discharge Status: Achieved Goals Improved Function Independent with HEP Patient Elected to Stop Discharge Summary: Patient demos improvements in knee extension lacking about 5 degs after tx. He has an HEP and feels ready for DC at this time. Educated him on importance of strengthening still. He demos improved gait pattern and will be seeing podiatry for his heel at this time. DC to HEP. Electronically signed by: Amara Hardy, PT Please sign and return to therapist. Thank you for your referral.
== END 2021-09-18 12:04 | disposition home or self-care (01) ==
LOC: HO.PTCHIC 10:00
PROVIDERS: PCP Internal Medicine; Visit Provider Orthopaedic Surgery
DX: M76.61 Achilles tendinitis, right leg (principal); Z96.651 Presence of right artificial knee joint
CPT/HCPCS: 97014; 97035; 97110; 97140; 97162; 97164; 97530

== ENCOUNTER 2021-10-05 17:16 | Outpatient (REF) | payer OTHER, SELFPAY ==
[2021-10-05 17:30] LABS: Hematocrit 49.6 % (42.0-52.0); Hemoglobin 16.9 g/dl (14.0-18.0); Mean Corpuscular HGB Conc 34.1 g/dl (31.0-36.0); Mean Corpuscular Volume 79.2 fL (80.0-98.0); Mean Platelet Volume 9.9 fL (9.4-12.4); Platelet Count 397 X10*3/uL (160-400); Red Blood Count 6.26 X10*6/uL (4.60-5.80); Red Cell Distribution Width 14.2 % (11.0-16.0); White Blood Count 14.2 X10*3/uL (4.8-10.8)
[2021-10-05 17:50] LABS: Alanine Aminotransferase 14 U/L (0-40); Albumin Level 5.2 g/dL (3.5-5.0); Alkaline Phosphatase 117 U/L (39-117); Anion Gap 16 (12-20); Aspartate Amino Transferase 24 U/L (5-37); Bilirubin Direct 0.4 mg/dL (0.0-0.5); Blood Urea Nitrogen 20 mg/dL (9-16); Calcium 11.1 mg/dL (8.4-10.2); Carbon Dioxide 24 mmol/L (22-29); Chloride 103 mmol/L (96-108); Estimated Glomerular Filt Rate > 60; Glucose Random 138 mg/dL (60-115); Potassium 3.5 mmol/L (3.3-5.1); Sodium 139 mmol/L (135-145); Total Protein 8.2 g/dL (6.5-8.0)
[2021-10-05 18:13] LABS: Erythrocyte Sedimentation Rate 2 MM/HR (0-15)
[2021-10-05 19:51] LABS: Influenza A PCR NEGATIVE (Negative); Influenza B PCR NEGATIVE (Negative); Resp Syncy Virus RNA Qual PCR NEGATIVE (Negative); SARS COV2 PCR INHOUSE NEGATIVE (Negative)
== END 2021-10-05 17:17 | disposition home or self-care (01) ==
LOC: HO.LAB 17:16
PROVIDERS: Visit Provider Internal Medicine
DX: Z20.822 Contact with and (suspected) exposure to COVID-19 (principal); R10.9 Unspecified abdominal pain; R43.9 Unspecified disturbances of smell and taste
CPT/HCPCS: 0241U; 36415; 80048; 80076; 85027; 85652

== ENCOUNTER 2023-02-10 00:47 | Emergency (ER) | payer OTHER, SELFPAY ==
--- NOTE | ~2023-02-10 | CT_ITS ---
EXAMINATION: CT ABDOMEN AND PELVIS WITH CONTRAST CLINICAL INFORMATION: Abdominal pain, history of bariatric surgery COMPARISON: 01/06/2016 TECHNIQUE: Multidetector volumetric images were obtained from the superior aspect of the liver through the pubic symphysis following administration 100 mL of Omnipaque 350 intravenous contrast. Sagittal and coronal reformatted images were obtained on the technologist's workstation. Oral contrast: No This CT examination was performed using dose optimization techniques as appropriate, variously including the following: *Automated exposure control *Adjustment of mA and/or kV according to patient size (this includes techniques or standardized protocols for targeted exams where dose is matched to indication/reason for exam; i.e. extremities or head) *Use of iterative reconstruction technique DLP: 1021 mGy-cm FINDINGS: Suboptimal assessment in some regions due to motion artifact. LUNG BASES: The visualized lung bases are unremarkable. LIVER, GALLBLADDER, AND BILIARY TREE: The liver is normal in size, shape, and attenuation. No focal hepatic lesion or biliary ductal dilatation is present. The gallbladder is unremarkable. PANCREAS: Unremarkable. SPLEEN: Unremarkable. ADRENAL GLANDS: Unremarkable. KIDNEYS AND URETERS: Bilateral nephrograms are symmetric. No hydronephrosis or obstructing calculus identified. Small bilateral renal hypodensities are suggestive of cysts though not adequately characterized; no follow-up recommended. BLADDER: Unremarkable. GASTROINTESTINAL TRACT: Suture line is present along the stomach. Colonic diverticulosis is noted. The small and large bowel are otherwise unremarkable without evidence of obstruction or pericolonic inflammatory change. Patient is suspected to be status post appendectomy. No free fluid or free air is seen. ABDOMINAL WALL: No significant hernia is appreciated. LYMPH NODES: Normal. VASCULAR: Minimal atherosclerotic calcification. PELVIC VISCERA: Unremarkable. OSSEOUS STRUCTURES: Degenerative changes are noted in the spine. CT/CT abdomen pelvis w IV con IMPRESSION: No acute findings identified in the abdomen/pelvis. Colonic diverticulosis without diverticulitis.
[2023-02-10 00:48] VITALS: BP 159/79; PULSE 68; RESP 20; TEMP 35.9; O2SAT 100
[2023-02-10 01:05] LABS: MANUAL DIFF FLAG NO
[2023-02-10 01:08] LABS: Basophils Absolute Auto 0.1 X10*3/uL (0.0-0.2); Basophils Percent Auto 0.8 % (0-2); Eosinophils Percent Auto 0.1 % (0-4); Hematocrit 49.1 % (42.0-52.0); Hemoglobin 16.8 g/dl (14.0-18.0); Imm Gran Abs Auto 0.04 X10*3/uL (0.00-0.03); Imm Gran Pct Auto 0.3 % (0.0-0.4); Lymphocytes Absolute Auto 1.3 X10*3/uL (1.2-4.9); Lymphocytes Percent Auto 11.3 % (20-40); Mean Corpuscular HGB Conc 34.2 g/dl (31.0-36.0); Mean Corpuscular Hemoglobin 29.2 pg (27.0-33.0); Mean Corpuscular Volume 85.4 fL (80.0-98.0); Mean Platelet Volume 9.9 fL (9.4-12.4); Monocytes Absolute Auto 0.5 X10*3/uL (0.1-1.2); Monocytes Percent Auto 4.6 % (2-11); Neutrophils Absolute Auto 9.7 x10*3/uL (2.0-8.3); Neutrophils Percent Auto 82.9 % (45-73); Platelet Count 238 X10*3/uL (160-400); Red Blood Count 5.75 X10*6/uL (4.60-5.80); Red Cell Distribution Width 13.5 % (11.0-16.0); White Blood Count 11.7 X10*3/uL (4.8-10.8)
[2023-02-10 01:21] LABS: Anion Gap 19 (12-20); Blood Urea Nitrogen 13 mg/dL (9-16); Calcium 9.9 mg/dL (8.4-10.2); Carbon Dioxide 17 mmol/L (22-29); Chloride 106 mmol/L (96-108); Creatinine Clr Calc Pharmacy 117.8; Estimated Glomerular Filt Rate > 60; Glucose Random 169 mg/dL (60-115); Potassium 3.7 mmol/L (3.3-5.1); Sodium 138 mmol/L (135-145)
[2023-02-10 02:40] VITALS: BP 155/60; PULSE 66; RESP 21; TEMP 36.2; O2SAT 99
--- NOTE | 2023-02-10 02:41 | ECG_ITS ---
Test Reason : ABD PAIN Blood Pressure : / mmHG Vent. Rate : 067 BPM Atrial Rate : 067 BPM P-R Int : 144 ms QRS Dur : 110 ms QT Int : 454 ms P-R-T Axes : 038 044 041 degrees QTc Int : 479 ms Normal sinus rhythm with sinus arrhythmia Incomplete right bundle branch block Borderline ECG When compared with ECG of 13-MAY-2021 10:43, Incomplete right bundle branch block is now Present Referred By: Kassie Sterling Electronically Signed By:BETO CLINTON MD
--- NOTE | 2023-02-10 02:50 | ED_ITS ---
HPI - Nausea/Vomiting/Diarrhea General Chief complaint: Nausea/Vomiting/Diarrhea Stated complaint: n/v stomach pain Time Seen by Provider: 02/10/23 02:39 Source: patient Mode of arrival: ambulatory Limitations: no limitations History of Present Illness HPI Narrative: Patient comes to the emergency room complaining of lightheadedness, nausea vomiting and diffuse abdominal pain for the last 8 hours. Patient denies chest pain or shortness of breath. Patient states that he has had episodes of hiccups and nausea/vomiting and abdominal cramping that have lasted 2 weeks. Related Data Home Medications Medication Instructions Recorded Confirmed amitriptyline 25 mg tablet 25 mg PO BEDTIME 11/18/20 05/18/21 citalopram 40 mg tablet 40 mg PO BEDTIME 11/18/20 05/18/21 lisinopril 10 mg tablet 10 mg PO BEDTIME 11/18/20 05/18/21 zolpidem 5 mg tablet (Ambien) 5 mg PO BEDTIME PRN Insomnia 11/18/20 05/18/21 epinephrine 0.3 mg/0.3 mL 0.3 mg IM Q10M PRN Anaphylaxis 02/11/21 05/18/21 injection, auto-injector (EpiPen) atorvastatin 20 mg tablet 1 tab PO DAILY 02/16/21 05/18/21 Previous Rx's Medication Instructions Recorded walker #1 ea 02/18/21 aspirin 325 mg tablet 325 mg PO BID 30 days #60 tabs 06/07/21 omeprazole 20 mg capsule,delayed 20 mg PO BID@0630,1630 30 days #60 06/07/21 release caps ondansetron HCl 4 mg tablet 4 mg PO Q8H PRN nausea and 06/07/21 (Zofran) vomiting 7 days #21 tabs ondansetron 8 mg disintegrating 8 mg PO Q12H PRN nausea and 06/18/21 tablet vomiting 5 days #10 tabs scopolamine base 1 mg over 3 days 1 patch transdermal Q3D PRN nausea 06/18/21 transdermal patch and vomiting #4 ea ibuprofen 800 mg tablet 800 mg PO TID PRN pain 30 days #90 07/13/21 tabs oxycodone-acetaminophen 5 mg-325 1 tab PO .q24 PRN pain (scale 08/11/21 mg tablet (Percocet) score 4-6) 30 days #30 tabs amoxicillin 500 mg tablet 2,000 mg PO ONCE 1 day #4 tabs 11/06/21 ondansetron HCl 4 mg tablet 4 mg PO Q6H PRN nausea and 02/10/23 vomiting #14 tabs Allergies Allergy/AdvReac Type Severity Reaction Status Date / Time bee pollen [BEE STINGS] Allergy Severe ANAPHYLACTIC Verified 10/05/21 16:14 SHOCK- CARRIES EPI PEN Review of Systems Review of Systems: Constitutional : No Weight loss, No Fever, No Chills, No Night Sweats, No Fatigue, No Malaise ENT/Mouth : No Hearing loss, No Ear Pain, No Nasal Congestion, No Sinus Pain, No Hoarseness, No sore throat, No Rhinorrhea, No Swallowing Difficulty Eyes: No Eye Pain, No Swelling, No Redness, No Foreign Body, No Discharge, No Vision Changes Cardiovascular : No Chest Pain, No SOB, No Dyspnea on Exertion, No Orthopnea, No Edema, No Palpitations Respiratory : No Cough, No Sputum, No Wheezing, No Smoke Exposure, No Dyspnea Gastrointestinal : Complaining of nausea and vomiting No Diarrhea, No Constipation, burning of hiccups and abdominal cramping, no hematochezia or melena Genitourinary : no irregular bleeding, No Dysuria, No Urinary Frequency, No Hematuria, No Urinary Incontinence, No Urgency, No Flank Pain, No Urinary Flow Changes, No Hesitancy Musculoskeletal : No joint pain, No Myalgias, No Joint Swelling Skin : No Skin Lesions, No rash Neuro : No Weakness, No Numbness, No Paresthesias, No Loss of Consciousness, No Dizziness, No Headache Psych : No Anxiety/Panic, No Depression, No SI/HI/AH/VH, No Social Issues, Heme/Lymph: No Bruising, No Bleeding,No Lymphadenopathy Endocrine : No Polyuria, No Polydipsia, No Temperature Intolerance [facility] Past Medical History Medical History Chronic pain syndrome Elevated cholesterol HTN (hypertension) Primary osteoarthritis of right knee Sleep apnea Type 2 diabetes mellitus Surgical History H/O bariatric surgery H/O colonoscopy History of total left knee replacement (TKR) Hx of appendectomy Hx of arthroscopic knee surgery Hx of foot surgery Hx of foot surgery Hx of hand surgery Hx of lumbar discectomy Hx of right inguinal hernia repair Family History Family History Mother Parkinson disease Social History Social History Household Members: Family Housing: House Are you a primary wound care rn to a significant other at home: No Do you presently have visiting nurse or other home services: No Alcohol intake: never Patient Tobacco Use Status: Former Tobacco user Quit Date: 2005 Tobacco use type: Cigarette Years Smoked: 15 Smoked in Last 30 Days: No Use of substances other than those prescribed or required for medical reasons: No Advance Directives: No Advance Directives Information Provided: Yes service: No Current occupational status: unemployed Current occupation: Right Handed Physical Exam Vital Signs: Vital Signs: Last Vital Signs Temp 97.1 F 02/10/23 02:40 Pulse 66 02/10/23 02:40 Resp 21 H 02/10/23 02:40 BP 155/60 H 02/10/23 02:40 Pulse Ox 99 02/10/23 02:40 O2 Del Method Room Air 02/10/23 02:40 BMI result Body Mass Index 30.0 Const: Other: Appearance: Alert. Oriented X3. Anxious Eyes: Pupils equal, round and reactive to light. ENT: Pharynx normal. Neck: Normal inspection. Neck supple. No lymph nodes noted. No crepitus CVS: Normal heart rate and rhythm. Pulses normal. Normal S1 and S2 Respiratory: No respiratory distress. Breath sounds normal. No Wheezing. No rales Abdomen: Soft , mild to moderate discomfort on palpation in epigastric area, patient has hiccups Skin: Skin warm and dry. Normal skin color. Normal skin turgor. Extremities: No lower extremity edema. No Lacerations. No Rash Neuro: Oriented X 3. No motor deficit. No sensory deficit. Moving all extremit ies. No slurred speech. CN 2 through 12 grossly intact Psych: calm, cooperative, normal affect Course Course Course Narrative: Patient's labs and imaging pending -patient given IV fluids, Zofran, morphine and Ativan Medications Administered Discontinued Medications Generic Name Dose Route Start Last Admin Trade Name Freq PRN Reason Stop Dose Admin Sodium Chloride 1,000 mls @ 999 mls/hr 02/10/23 02:46 02/10/23 02:58 Ns IVCONT 02/10/23 03:46 999 mls/hr .Q1H1M ONE Administration Iohexol 100 ml 02/10/23 03:27 02/10/23 03:28 Iohexol 350 Mg/Ml 100 Ml Infus..Btl IV 02/10/23 03:28 100 ml ONCE ONE Administration Lorazepam 2 mg 02/10/23 02:46 02/10/23 02:58 Lorazepam 2 Mg/Ml Vial IVPUSH 02/10/23 02:47 2 mg ONCE ONE Administration Morphine Sulfate 4 mg 02/10/23 02:47 02/10/23 02:58 Morphine Sulfate 4 Mg/Ml Cartridge IVPUSH 02/10/23 02:48 4 mg ONCE ONE Administration Protocol Ondansetron HCl 4 mg 02/10/23 02:46 02/10/23 02:59 Ondansetron Hcl 4 Mg/2 Ml Vial IVPUSH 02/10/23 02:47 4 mg ONCE ONE Administration Prochlorperazine Edisylate 10 mg 02/10/23 03:54 02/10/23 03:57 Prochlorperazine Edisylate 10 Mg/2 Ml Vial IVPUSH 02/10/23 03:55 10 mg ONCE ONE Administration Medical Decision Making Medical Decision Making [facility] Narrative: -after initial treatment, patient states the pain is getting better but still nauseous, patient given 1 dose of IV Compazine 10 mg -patient states that he feels much better, no longer vomiting or having hiccups. -interpretation of CT scan of the abdomen, no acute findings, no small-bowel obstructions are air-fluid levels -EKG: My interpretation sinus rhythm, heart rate 67, no ST segment depression or elevation, no T-wave inversion, QTC 479 -patient was p.o. challenged, did well Lab Data [facility] Lab Attestation statement: I reviewed the patient's lab results. 02/10/23 00:57 02/10/23 00:57 Labs: Lab Results 02/10/23 02/10/23 02/10/23 Range/Units 00:57 00:57 02:54 WBC 11.7 H (4.8-10.8) X10*3/uL RBC 5.75 (4.60-5.80) X10*6/uL Hgb 16.8 (14.0-18.0) g/dl Hct 49.1 (42.0-52.0) % MCV 85.4 (80.0-98.0) fL MCH 29.2 (27.0-33.0) pg MCHC 34.2 (31.0-36.0) g/dl RDW 13.5 (11.0-16.0) % Plt Count 238 D (160-400) X10*3/uL MPV 9.9 (9.4-12.4) fL Immature Gran % (Auto) 0.3 (0.0-0.4) % Neut % (Auto) 82.9 H (45-73) % Lymph % (Auto) 11.3 L (20-40) % [place] % (Auto) 4.6 (2-11) % Eos % (Auto) 0.1 (0-4) % Baso % (Auto) 0.8 (0-2) % Lymph # (Auto) 1.3 (1.2-4.9) X10*3/uL [place] # (Auto) 0.5 (0.1-1.2) X10*3/uL Eos # (Auto) 0.0 (0.0-0.4) X10*3/uL Baso # (Auto) 0.1 (0.0-0.2) X10*3/uL Abs Immat Gran (auto) 0.04 H (0.00-0.03) X10*3/uL Absolute Neuts (auto) 9.7 H (2.0-8.3) x10*3/uL Absolute Nucleated RBC 0.000 (0.0-0.012) X10*3/uL Nucleated RBC % (auto) 0.0 (0.0-0.2) /100WBC Sodium 138 (135-145) mmol/L Potassium 3.7 (3.3-5.1) mmol/L Chloride 106 (96-108) mmol/L Carbon Dioxide 17 L (22-29) mmol/L Anion Gap 19 (12-20) BUN 13 (9-16) mg/dL Creatinine 0.90 (0.5-1.4) mg/dL Estim Creat Clear Calc 117.8 Estimated GFR > 60 Random Glucose 169 H (60-115) mg/dL Calcium 9.9 D (8.4-10.2) mg/dL Total Bilirubin 1.2 H (0.0-1.0) mg/dL Direct Bilirubin 0.3 (0.0-0.5) mg/dL AST 28 (5-37) U/L ALT 18 (0-40) U/L Alkaline Phosphatase 125 H (39-117) U/L Troponin I High Sens < 2.7 (<3.5-35.0) ng/L Total Protein 7.5 (6.5-8.0) g/dL Albumin 4.8 (3.5-5.0) g/dL Lipase 19 (8-78) U/L Urine Color Urine Appearance Urine pH (5.0-9.0) Ur Specific [place] (1.005-1.025) Urine Protein (Neg-Trace) mg/dL Urine Glucose (UA) (Negative) mg/dL Urine Ketones (Negative) mg/dL Urine Blood (Negative) Urine Nitrite (Negative) Ur Leukocyte Esterase (Negative) Urine RBC (0-2) /HPF Urine WBC (0-5) /HPF Ur Squamous Epith Cells (0-2) /HPF Urine Bacteria (None Seen) Hyaline Casts (0-2) /LPF 02/10/23 Range/Units 03:50 WBC (4.8-10.8) X10*3/uL RBC (4.60-5.80) X10*6/uL Hgb (14.0-18.0) g/dl Hct (42.0-52.0) % MCV (80.0-98.0) fL MCH (27.0-33.0) pg MCHC (31.0-36.0) g/dl RDW (11.0-16.0) % Plt Count (160-400) X10*3/uL MPV (9.4-12.4) fL Immature Gran % (Auto) (0.0-0.4) % Neut % (Auto) (45-73) % Lymph % (Auto) (20-40) % [place] % (Auto) (2-11) % Eos % (Auto) (0-4) % Baso % (Auto) (0-2) % Lymph # (Auto) (1.2-4.9) X10*3/uL [place] # (Auto) (0.1-1.2) X10*3/uL Eos # (Auto) (0.0-0.4) X10*3/uL Baso # (Auto) (0.0-0.2) X10*3/uL Abs Immat Gran (auto) (0.00-0.03) X10*3/uL Absolute Neuts (auto) (2.0-8.3) x10*3/uL Absolute Nucleated RBC (0.0-0.012) X10*3/uL Nucleated RBC % (auto) (0.0-0.2) /100WBC Sodium (135-145) mmol/L Potassium (3.3-5.1) mmol/L Chloride (96-108) mmol/L Carbon Dioxide (22-29) mmol/L Anion Gap (12-20) BUN (9-16) mg/dL Creatinine (0.5-1.4) mg/dL Estim Creat Clear Calc Estimated GFR Random Glucose (60-115) mg/dL Calcium (8.4-10.2) mg/dL Total Bilirubin (0.0-1.0) mg/dL Direct Bilirubin (0.0-0.5) mg/dL AST (5-37) U/L ALT (0-40) U/L Alkaline Phosphatase (39-117) U/L Troponin I High Sens (<3.5-35.0) ng/L Total Protein (6.5-8.0) g/dL Albumin (3.5-5.0) g/dL Lipase (8-78) U/L Urine Color Yellow Urine Appearance Clear Urine pH 8.0 (5.0-9.0) Ur Specific [place] >= 1.030 H (1.005-1.025) Urine Protein 30 (1+) H (Neg-Trace) mg/dL Urine Glucose (UA) 250 H (Negative) mg/dL Urine Ketones >=160 (Negative) mg/dL Urine Blood Negative (Negative) Urine Nitrite Negative (Negative) Ur Leukocyte Esterase Negative (Negative) Urine RBC 0-2 (0-2) /HPF Urine WBC 0-5 (0-5) /HPF Ur Squamous Epith Cells 0-2 (0-2) /HPF Urine Bacteria None Seen (None Seen) Hyaline Casts 0-2 (0-2) /LPF Radiology Impression Discussion of test interpretation with radiology: I have reviewed the radiologist's reading. Radiologist Impression: INDINGS: Suboptimal assessment in some regions due to motion artifact. LUNG BASES: The visualized lung bases are unremarkable.? LIVER, GALLBLADDER, AND BILIARY TREE: The liver is normal in size, shape, and attenuation. No focal hepatic lesion or biliary ductal dilatation is present. The gallbladder is unremarkable. PANCREAS: Unremarkable.? SPLEEN: Unremarkable.? ADRENAL GLANDS: Unremarkable.? KIDNEYS AND URETERS: Bilateral nephrograms are symmetric. No hydronephrosis or obstructing calculus identified. Small bilateral renal hypodensities are suggestive of cysts though not adequately characterized; no follow-up recommended. BLADDER: Unremarkable. GASTROINTESTINAL TRACT: Suture line is present along the stomach. Colonic diverticulosis is noted. The small and large bowel are otherwise unremarkable without evidence of obstruction or pericolonic inflammatory change. Patient is suspected to be status post appendectomy. No free fluid or free air is seen.? ? ABDOMINAL WALL: No significant hernia is appreciated.? LYMPH NODES: Normal. VASCULAR: Minimal atherosclerotic calcification. PELVIC VISCERA: Unremarkable.? OSSEOUS STRUCTURES: Degenerative changes are noted in the spine.? CT/CT abdomen pelvis w IV con IMPRESSION: No acute findings identified in the abdomen/pelvis. Colonic diverticulosis without diverticulitis. ? Discharge Plan Discharge Clinical Impression: Nausea & vomiting Patient Disposition: Home, Self-Care Instructions: Acute Nausea and Vomiting (ED) Additional Instructions: Please follow-up with your primary care physician tomorrow. If you have any worsening or new symptoms, please return to the emergency room or call 911 Prescriptions: New ondansetron HCl 4 mg tablet 4 mg PO Q6H PRN (Reason: nausea and vomiting) Qty: 14 0RF No Action (DME) walker Misc See Rx Instructions .ROUTE .MEDSUPPLY Qty: 1 0RF Rx Instructions: Folding front wheeled walker oxycodone-acetaminophen [Percocet] 5-325 mg tablet 1 tab PO .q24 PRN (Reason: pain (scale score 4-6)) 30 Days Qty: 30 0RF amoxicillin 500 mg tablet 2,000 mg PO ONCE 1 Days Qty: 4 3RF Rx Instructions: take 4 capsules 1 hr prior to dental procedure epinephrine [EpiPen] 0.3 mg/0.3 mL Auto-Injector 0.3 mg IM Q10M PRN (Reason: Anaphylaxis) atorvastatin 20 mg tablet 1 tab PO DAILY aspirin 325 mg Tablet 325 mg PO BID 30 Days Qty: 60 0RF omeprazole 20 mg Capsule,Delayed Release(Dr/Ec) 20 mg PO BID@0630,1630 30 Days Qty: 60 0RF ondansetron HCl [Zofran] 4 mg tablet 4 mg PO Q8H PRN (Reason: nausea and vomiting) 7 Days Qty: 21 0RF ibuprofen 800 mg tablet 800 mg PO TID PRN (Reason: pain) 30 Days Qty: 90 1RF lisinopril 10 mg tablet 10 mg PO BEDTIME amitriptyline 25 mg tablet 25 mg PO BEDTIME citalopram 40 mg tablet 40 mg PO BEDTIME zolpidem [Ambien] 5 mg tablet 5 mg PO BEDTIME PRN (Reason: Insomnia) ondansetron 8 mg tablet,disintegrating 8 mg PO Q12H PRN (Reason: nausea and vomiting) 5 Days Qty: 10 0RF scopolamine base 1 mg over 3 days patch 3 day 1 patch transdermal Q3D PRN (Reason: nausea and vomiting) Qty: 4 0RF
[2023-02-10] MEDS: Morphine Sulfate 4 MG/ML CARTRIDGE IVPUSH (02:58)
[2023-02-10] MEDS: LORazepam 2 MG/ML VIAL IVPUSH (02:58)
[2023-02-10] MEDS: 0.9 % Sodium Chloride 1,000 ML 999 ML IVCONT (02:58)
[2023-02-10] MEDS: ondansetron HCL 4 MG/2 ML VIAL IVPUSH (02:59)
[2023-02-10 03:02] LABS: Alanine Aminotransferase 18 U/L (0-40); Albumin Level 4.8 g/dL (3.5-5.0); Alkaline Phosphatase 125 U/L (39-117); Aspartate Amino Transferase 28 U/L (5-37); Bilirubin Direct 0.3 mg/dL (0.0-0.5); Bilirubin Total 1.2 mg/dL (0.0-1.0); Lipase 19 U/L (8-78); Total Protein 7.5 g/dL (6.5-8.0)
[2023-02-10 03:19] LABS: Troponin-I High Sensitivity < 2.7 ng/L (<3.5-35.0)
[2023-02-10] MEDS: iohexoL 350 MG/ML 100 ML INFUS..BTL IV (03:28)
--- NOTE | 2023-02-10 03:42 | PC.NURSE ---
Pt resting quietly in bed at this time. Attempted to stand to void but got very dizzy. Pt sat back down and dizziness decreased. Urine sample collected.
[2023-02-10] MEDS: Prochlorperazine Edisylate 10 MG/2 ML VIAL IVPUSH (03:57)
[2023-02-10 03:59] LABS: Appearance Urine Clear; Color Urine Yellow; Glucose Urine UA 250 mg/dL (Negative); Leukocyte Esterase Urine Negative (Negative); Nitrite Urine Negative (Negative); Specific Gravity - Urine >= 1.030 (1.005-1.025); UMIC TRIGGER UACC YES; Urine Blood Negative (Negative); Urine Ketones >=160 mg/dL (Negative); Urine Protein 30 (1+) mg/dL (Neg-Trace)
[2023-02-10 04:02] LABS: Bacteria Urine None Seen (None Seen); Hyaline Casts Urine 0-2 /LPF (0-2); RBC Urine 0-2 /HPF (0-2); Squamous Epithelial Cell Urine 0-2 /HPF (0-2); WBC Urine 0-5 /HPF (0-5)
== END 2023-02-10 05:15 | disposition home or self-care (01) ==
PROVIDERS: Emergency Provider Emergency Medicine
DX: R11.2 Nausea with vomiting, unspecified (principal); E11.9 Type 2 diabetes mellitus without complications; I10 Essential (primary) hypertension; E78.5 Hyperlipidemia, unspecified; Z87.891 Personal history of nicotine dependence; Z79.02 Long term (current) use of antithrombotics/antiplatelets; Z79.899 Other long term (current) drug therapy; Z79.82 Long term (current) use of aspirin
CPT/HCPCS: 36415; 74177; 80048; 80076; 81001; 83690; 84484; 85025; 93005; 96361; 96374; 96375; 99284; 99285; J2060; J2270; J2405; Q9967

== ENCOUNTER 2023-02-11 19:36 | Observation (INO) | payer OTHER, SELFPAY ==
--- NOTE | ~2023-02-11 | XR_ITS ---
EXAMINATION: XR ABDOMEN KUB CLINICAL INDICATION: Nausea/vomiting COMPARISON: CT 02/10/2023 TECHNIQUE: AP view of the abdomen. FINDINGS: Bowel gas pattern is nonobstructive. Stool is noted in the right colon. There is limited assessment for free air with supine positioning. Phleboliths noted in the pelvis. Degenerative changes are present in the spine. XR/XR KUB IMPRESSION: Nonobstructive bowel gas pattern.
--- NOTE | 2023-02-11 19:38 | ED.NAVMDI ---
HPI - Nausea/Vomiting/Diarrhea General Chief complaint: Abdominal Pain <XIOMY Hernandez - Last Filed: 02/11/23 19:43> Stated complaint: vomiting, nausea <XIOMY Hernandez - Last Filed: 02/11/23 19:43> Time Seen by Provider: 02/11/23 21:04 <XIOMY Hernandez - Last Filed: 02/11/23 19:43> Source: patient <Joaquin Landaverde MD - Last Filed: 02/12/23 01:22> Mode of arrival: ambulatory <Joaquin Landaverde MD - Last Filed: 02/12/23 01:22> Limitations: no limitations <Joaquin Landaverde MD - Last Filed: 02/12/23 01:22> History of Present Illness HPI Narrative: 58-year-old male presents with abdominal pain, nausea vomiting. Patient was seen in the emergency department yesterday with complaints of lightheadedness, nausea, vomiting and diffuse abdominal pain. I did started yesterday. There is no clear relieving or exacerbating features. He describes the pain as cramping. Previous episodes have occurred over the past 2 weeks. Patient was discharged significantly improved. He returns today for intractable nausea, severe abdominal pain. The abdominal pain is generalized. Does not radiate. Pain described again as cramping in nature. Does not radiate. There is no clear relieving or exacerbating features. He tried Zofran for the nausea without improvement. He denies any fevers or chills. Denies any diarrhea constipation yesterday he did have a CT scan which did not identify any acute etiology for symptoms. <Joaquin Landaverde MD - Last Filed: 02/12/23 01:22> Related Data Home medications: Home Medications Medication Instructions Recorded Confirmed amitriptyline 25 mg tablet 25 mg PO BEDTIME 11/18/20 05/18/21 citalopram 40 mg tablet 40 mg PO BEDTIME 11/18/20 05/18/21 lisinopril 10 mg tablet 10 mg PO BEDTIME 11/18/20 05/18/21 zolpidem 5 mg tablet (Ambien) 5 mg PO BEDTIME PRN Insomnia 11/18/20 05/18/21 epinephrine 0.3 mg/0.3 mL 0.3 mg IM Q10M PRN Anaphylaxis 02/11/21 05/18/21 injection, auto-injector (EpiPen) atorvastatin 20 mg tablet 1 tab PO DAILY 02/16/21 05/18/21 Previous Rx's Medication Instructions Recorded walker #1 ea 02/18/21 aspirin 325 mg tablet 325 mg PO BID 30 days #60 tabs 06/07/21 omeprazole 20 mg capsule,delayed 20 mg PO BID@0630,1630 30 days #60 06/07/21 release caps ondansetron HCl 4 mg tablet 4 mg PO Q8H PRN nausea and 06/07/21 (Zofran) vomiting 7 days #21 tabs ondansetron 8 mg disintegrating 8 mg PO Q12H PRN nausea and 06/18/21 tablet vomiting 5 days #10 tabs scopolamine base 1 mg over 3 days 1 patch transdermal Q3D PRN nausea 06/18/21 transdermal patch and vomiting #4 ea ibuprofen 800 mg tablet 800 mg PO TID PRN pain 30 days #90 07/13/21 tabs oxycodone-acetaminophen 5 mg-325 1 tab PO .q24 PRN pain (scale 08/11/21 mg tablet (Percocet) score 4-6) 30 days #30 tabs amoxicillin 500 mg tablet 2,000 mg PO ONCE 1 day #4 tabs 11/06/21 ondansetron HCl 4 mg tablet 4 mg PO Q6H PRN nausea and 02/10/23 vomiting #14 tabs <XIOMY Hernandez - Last Filed: 02/11/23 19:43> Allergies/Adverse reactions: Allergies Allergy/AdvReac Type Severity Reaction Status Date / Time bee pollen [BEE STINGS] Allergy Severe ANAPHYLACTIC Verified 10/05/21 16:14 SHOCK- CARRIES EPI PEN <XIOMY Hernandez - Last Filed: 02/11/23 19:43> [facility] Past Medical History Medical History: Medical History Chronic pain syndrome Elevated cholesterol HTN (hypertension) Primary osteoarthritis of right knee Sleep apnea Type 2 diabetes mellitus <XIOMY Hernandez - Last Filed: 02/11/23 19:43> Surgical History: Surgical History H/O bariatric surgery H/O colonoscopy History of total left knee replacement (TKR) Hx of appendectomy Hx of arthroscopic knee surgery Hx of foot surgery Hx of foot surgery Hx of hand surgery Hx of lumbar discectomy Hx of right inguinal hernia repair <XIOMY Hernandez - Last Filed: 02/11/23 19:43> Family History Family History: Family History Mother Parkinson disease <XIOMY Hernandez - Last Filed: 02/11/23 19:43> Social History Social History: Social History Household Members: Family Housing: House Are you a primary career services assistant to a significant other at home: No Do you presently have visiting nurse or other home services: No Alcohol intake: never Patient Tobacco Use Status: Former Tobacco user Quit Date: 2005 Tobacco use type: Cigarette Years Smoked: 15 Advance Directives: No Advance Directives Information Provided: No service: No Current occupational status: unemployed Current occupation: Right Handed <XIOMY Hernandez - Last Filed: 02/11/23 19:43> Physical Exam Vital Signs: Vital Signs: Last Vital Signs Temp 98.4 F 02/11/23 23:17 Pulse 87 02/11/23 23:17 Resp 18 02/12/23 00:53 BP 136/95 H 02/11/23 23:17 Pulse Ox 90 L 02/11/23 23:17 O2 Del Method Room Air 02/11/23 23:17 BMI result Body Mass Index 38.8 <XIOMY Hernandez - Last Filed: 02/11/23 19:43> Vital Signs: Last Vital Signs Temp 98.4 F 02/11/23 23:17 Pulse 87 02/11/23 23:17 Resp 18 02/12/23 00:53 BP 136/95 H 02/11/23 23:17 Pulse Ox 90 L 02/11/23 23:17 O2 Del Method Room Air 02/11/23 23:17 BMI result Body Mass Index 38.8 <Joaquin Landaverde MD - Last Filed: 02/12/23 01:22> GEN: Well developed, + acute distress, alert, oriented HEENT: Normocephalic, atraumatic, normal external ears, nose appears normal, no oropharyngeal edema or exudates Eyes: Normal to appearance Neck: Supple, no lymphadenopathy Respiratory: Talks in complete sentences, no respiratory distress, clear to auscultation bilaterally Cardiovascular: Regular rate and rhythm, no murmurs rubs or gallops Abdomen: Soft, generally tender, nondistended, no guarding, no rebound Back: No CVA tenderness Extremities: No clubbing cyanosis or edema Neurologic: No focal neurologic deficits, cranial nerves 2-12 intact, strength is 5/5 bilaterally Skin: No rash <Joaquin Landaverde MD - Last Filed: 02/12/23 01:22> Course Course Course Narrative: RME - 58 yo male with history of anxiety/depression, HTN & HLD who presents to the ER for evaluation of N/V and abdominal cramping that started yesterday and got acutely worse tonight. He was seen here for the same yesterday - had negative CT scan abd/pelvis, required multiple doses of antiemetics, ativan and morphine for symptom control. Sent home with Rx for Zofran which has not been helping, last took it 3 hours ago. Plan: repeat labs, IV antiemetics, IVF and pain control. <XIOMY Hernandez - Last Filed: 02/11/23 19:43> Reevaluation(s) Reevaluation #1: I reviewed CT scan results from yesterday. User results showed the impression is no acute findings identified in the abdomen/pelvis. Colonic diverticulosis without diverticulitis. At this time, will order analgesia and antiemetics. <Joaquin Landaverde MD - Last Filed: 02/12/23 01:22> Time: 21:32 <Joaquin Landaverde MD - Last Filed: 02/12/23 01:22> Reevaluation #2: stillhaving significant amount of pain and nausea, will give additional medications <Joaquin Landaverde MD - Last Filed: 02/12/23 01:22> Time: 22:33 <Joaquin Landaverde MD - Last Filed: 02/12/23 01:22> Reevaluation #3: feeling a little better at this time. Suspect patient may require hospitalization for intractable nausea and abdominal pain <Joaquin Landaverde MD - Last Filed: 02/12/23 01:22> Time: 23:50 <Joaquin Landaverde MD - Last Filed: 02/12/23 01:22> Additional Reevaluation(s): Patient content any staff significant abdominal pain, intractable nausea. He is doing better however, patient still is very phobic of trying oral intake. Patient will be admitted for intractable nausea, vomiting and abdominal pain <Joaquin Landaverde MD - Last Filed: 02/12/23 01:22> Medications Administered Discontinued Medications Generic Name Dose Route Start Last Admin Trade Name Freq PRN Reason Stop Dose Admin Hydromorphone HCl 1 mg 02/11/23 22:33 02/11/23 23:24 Hydromorphone Hcl 1 Mg/Ml Syringe IVPUSH 02/11/23 22:34 1 mg ONCE ONE Administration Protocol Sodium Chloride 1,000 mls @ 999 mls/hr 02/11/23 19:45 02/11/23 21:36 Ns IVCONT 02/11/23 20:45 Not Given .Q1H1M BHARTI Sodium Chloride 1,000 mls @ 999 mls/hr 02/11/23 21:30 02/12/23 00:32 Ns IV 02/11/23 22:30 Infused .Q1H1M BHARTI Infusion Promethazine HCl 12.5 mg/ 50.5 mls @ 202 mls/hr 02/11/23 22:33 02/12/23 00:31 Sodium Chloride IV 02/11/23 22:34 Infused ONCE ONE Infusion Metoclopramide HCl 10 mg 02/11/23 21:17 02/11/23 21:35 Metoclopramide Hcl 10 Mg/2 Ml Vial IVPUSH 02/11/23 21:18 10 mg ONCE ONE Administration Morphine Sulfate 4 mg 02/11/23 21:17 02/11/23 21:34 Morphine Sulfate 4 Mg/Ml Cartridge IVPUSH 02/11/23 21:18 4 mg ONCE ONE Administration Protocol <XIOMY Hernandez - Last Filed: 02/11/23 19:43> Medications Administered Discontinued Medications Generic Name Dose Route Start Last Admin Trade Name Freq PRN Reason Stop Dose Admin Hydromorphone HCl 1 mg 02/11/23 22:33 02/11/23 23:24 Hydromorphone Hcl 1 Mg/Ml Syringe IVPUSH 02/11/23 22:34 1 mg ONCE ONE Administration Protocol Sodium Chloride 1,000 mls @ 999 mls/hr 02/11/23 19:45 02/11/23 21:36 Ns IVCONT 02/11/23 20:45 Not Given .Q1H1M BHARTI Sodium Chloride 1,000 mls @ 999 mls/hr 02/11/23 21:30 02/12/23 00:32 Ns IV 02/11/23 22:30 Infused .Q1H1M BHARTI Infusion Promethazine HCl 12.5 mg/ 50.5 mls @ 202 mls/hr 02/11/23 22:33 02/12/23 00:31 Sodium Chloride IV 02/11/23 22:34 Infused ONCE ONE Infusion Metoclopramide HCl 10 mg 02/11/23 21:17 02/11/23 21:35 Metoclopramide Hcl 10 Mg/2 Ml Vial IVPUSH 02/11/23 21:18 10 mg ONCE ONE Administration Morphine Sulfate 4 mg 02/11/23 21:17 02/11/23 21:34 Morphine Sulfate 4 Mg/Ml Cartridge IVPUSH 02/11/23 21:18 4 mg ONCE ONE Administration Protocol <Joaquin Landaverde MD - Last Filed: 02/12/23 01:22> Medical Decision Making Medical Decision Making [facility] Narrative: 58-year-old male presents with abdominal pain, nausea vomiting. Patient is in acute distress clearly uncomfortable. His abdomen is soft, generally tender without rebound or guarding. Patient had workup yesterday which was negative. Pain was controlled prior to discharge his nausea had improved with Compazine. Patient's symptoms started back up again at 5:00 a.m. this evening. At this time there is no definite indication for repeat imaging. His abdomen has no peritoneal findings. Doubt acute abdomen, dissection, AAA or other catastrophic intra-abdominal pathology. Patient will have repeat lab testing, analgesia, IV fluids, antiemetics and frequent re-evaluations. <Joaquin Landaverde MD - Last Filed: 02/12/23 01:22> Differential Diagnosis Differential Diagnoses: The differential diagnosis associated with the presentation includes (IBD, IBS, bacterial overgrowth, gastroenteritis, pancreatitis, hepatitis dysmotility) <Joaquin Landaverde MD - Last Filed: 02/12/23 01:22> Abdominal pain <Joaquin Landaverde MD - Last Filed: 02/12/23 01:22> Lab Data [facility] Lab Attestation statement: I reviewed the patient's lab results. <Joaquin Landaverde MD - Last Filed: 02/12/23 01:22> Result Diagrams: 02/11/23 20:03 02/11/23 20:03 <XIOMY Hernandez - Last Filed: 02/11/23 19:43> Labs: Lab Results 02/11/23 02/11/23 02/11/23 Range/Units 20:03 20:03 22:20 WBC 10.5 (4.8-10.8) X10*3/uL RBC 5.84 H (4.60-5.80) X10*6/uL Hgb 16.8 (14.0-18.0) g/dl Hct 47.4 (42.0-52.0) % MCV 81.2 (80.0-98.0) fL MCH 28.8 (27.0-33.0) pg MCHC 35.4 (31.0-36.0) g/dl RDW 13.5 (11.0-16.0) % Plt Count 279 (160-400) X10*3/uL MPV 9.7 (9.4-12.4) fL Immature Gran % (Auto) 0.3 (0.0-0.4) % Neut % (Auto) 65.1 (45-73) % Lymph % (Auto) 24.1 (20-40) % [place] % (Auto) 9.0 (2-11) % Eos % (Auto) 0.5 (0-4) % Baso % (Auto) 1.0 (0-2) % Lymph # (Auto) 2.5 (1.2-4.9) X10*3/uL [place] # (Auto) 0.9 (0.1-1.2) X10*3/uL Eos # (Auto) 0.1 (0.0-0.4) X10*3/uL Baso # (Auto) 0.1 (0.0-0.2) X10*3/uL Abs Immat Gran (auto) 0.03 (0.00-0.03) X10*3/uL Absolute Neuts (auto) 6.8 (2.0-8.3) x10*3/uL Absolute Nucleated RBC 0.000 (0.0-0.012) X10*3/uL Nucleated RBC % (auto) 0.0 (0.0-0.2) /100WBC Sodium 138 (135-145) mmol/L Potassium 3.3 (3.3-5.1) mmol/L Chloride 104 (96-108) mmol/L Carbon Dioxide 23 (22-29) mmol/L Anion Gap 14 (12-20) BUN 19 H (9-16) mg/dL Creatinine 0.96 (0.5-1.4) mg/dL Estim Creat Clear Calc 128.8 Estimated GFR > 60 Random Glucose 148 H (60-115) mg/dL Calcium 9.6 (8.4-10.2) mg/dL Magnesium 1.9 (1.6-2.6) mg/dL Total Bilirubin 1.4 H (0.0-1.0) mg/dL Direct Bilirubin 0.4 (0.0-0.5) mg/dL AST 33 (5-37) U/L ALT 21 (0-40) U/L Alkaline Phosphatase 117 (39-117) U/L Total Protein 7.1 (6.5-8.0) g/dL Albumin 4.8 (3.5-5.0) g/dL Lipase 28 (8-78) U/L Urine Color Dark Yellow Urine Appearance Cloudy Urine pH 5.5 (5.0-9.0) Ur Specific [place] >= 1.030 H (1.005-1.025) Urine Protein 100 (2+) H (Neg-Trace) mg/dL Urine Glucose (UA) Negative (Negative) mg/dL Urine Ketones 15 (Negative) mg/dL Urine Blood Small (1+) H (Negative) Urine Nitrite Negative (Negative) Ur Leukocyte Esterase Negative (Negative) Urine RBC 3-5 H (0-2) /HPF Urine WBC 0-5 (0-5) /HPF Ur Squamous Epith Cells 0-2 (0-2) /HPF Calcium Oxalate Crystal Present Urine Bacteria None Seen (None Seen) Hyaline Casts 3-5 (0-2) /LPF Urine Opiates Screen (Not Detect) Urine Fentanyl Screen (Not Detect) Ur Barbiturates Screen (Not Detect) Ur Phencyclidine Scrn (Not Detect) Ur Amphetamines Screen (Not Detect) U Benzodiazepines Scrn (Not Detect) Urine Cocaine Screen (Not Detect) U Marijuana (THC) Screen (Not Detect) Ethyl Alcohol < 10 mg/dL 02/11/23 Range/Units 22:20 WBC (4.8-10.8) X10*3/uL RBC (4.60-5.80) X10*6/uL Hgb (14.0-18.0) g/dl Hct (42.0-52.0) % MCV (80.0-98.0) fL MCH (27.0-33.0) pg MCHC (31.0-36.0) g/dl RDW (11.0-16.0) % Plt Count (160-400) X10*3/uL MPV (9.4-12.4) fL Immature Gran % (Auto) (0.0-0.4) % Neut % (Auto) (45-73) % Lymph % (Auto) (20-40) % [place] % (Auto) (2-11) % Eos % (Auto) (0-4) % Baso % (Auto) (0-2) % Lymph # (Auto) (1.2-4.9) X10*3/uL [place] # (Auto) (0.1-1.2) X10*3/uL Eos # (Auto) (0.0-0.4) X10*3/uL Baso # (Auto) (0.0-0.2) X10*3/uL Abs Immat Gran (auto) (0.00-0.03) X10*3/uL Absolute Neuts (auto) (2.0-8.3) x10*3/uL Absolute Nucleated RBC (0.0-0.012) X10*3/uL Nucleated RBC % (auto) (0.0-0.2) /100WBC Sodium (135-145) mmol/L Potassium (3.3-5.1) mmol/L Chloride (96-108) mmol/L Carbon Dioxide (22-29) mmol/L Anion Gap (12-20) BUN (9-16) mg/dL Creatinine (0.5-1.4) mg/dL Estim Creat Clear Calc Estimated GFR Random Glucose (60-115) mg/dL Calcium (8.4-10.2) mg/dL Magnesium (1.6-2.6) mg/dL Total Bilirubin (0.0-1.0) mg/dL Direct Bilirubin (0.0-0.5) mg/dL AST (5-37) U/L ALT (0-40) U/L Alkaline Phosphatase (39-117) U/L Total Protein (6.5-8.0) g/dL Albumin (3.5-5.0) g/dL Lipase (8-78) U/L Urine Color Urine Appearance Urine pH (5.0-9.0) Ur Specific [place] (1.005-1.025) Urine Protein (Neg-Trace) mg/dL Urine Glucose (UA) (Negative) mg/dL Urine Ketones (Negative) mg/dL Urine Blood (Negative) Urine Nitrite (Negative) Ur Leukocyte Esterase (Negative) Urine RBC (0-2) /HPF Urine WBC (0-5) /HPF Ur Squamous Epith Cells (0-2) /HPF Calcium Oxalate Crystal Urine Bacteria (None Seen) Hyaline Casts (0-2) /LPF Urine Opiates Screen POSITIVE H (Not Detect) Urine Fentanyl Screen Not Detected (Not Detect) Ur Barbiturates Screen Not Detected (Not Detect) Ur Phencyclidine Scrn Not Detected (Not Detect) Ur Amphetamines Screen Not Detected (Not Detect) U Benzodiazepines Scrn Not Detected (Not Detect) Urine Cocaine Screen Not Detected (Not Detect) U Marijuana (THC) Screen POSITIVE H (Not Detect) Ethyl Alcohol mg/dL <XIOMY Hernandez - Last Filed: 02/11/23 19:43> Lab Results 02/11/23 02/11/23 02/11/23 Range/Units 20:03 20:03 22:20 WBC 10.5 (4.8-10.8) X10*3/uL RBC 5.84 H (4.60-5.80) X10*6/uL Hgb 16.8 (14.0-18.0) g/dl Hct 47.4 (42.0-52.0) % MCV 81.2 (80.0-98.0) fL MCH 28.8 (27.0-33.0) pg MCHC 35.4 (31.0-36.0) g/dl RDW 13.5 (11.0-16.0) % Plt Count 279 (160-400) X10*3/uL MPV 9.7 (9.4-12.4) fL Immature Gran % (Auto) 0.3 (0.0-0.4) % Neut % (Auto) 65.1 (45-73) % Lymph % (Auto) 24.1 (20-40) % [place] % (Auto) 9.0 (2-11) % Eos % (Auto) 0.5 (0-4) % Baso % (Auto) 1.0 (0-2) % Lymph # (Auto) 2.5 (1.2-4.9) X10*3/uL [place] # (Auto) 0.9 (0.1-1.2) X10*3/uL Eos # (Auto) 0.1 (0.0-0.4) X10*3/uL Baso # (Auto) 0.1 (0.0-0.2) X10*3/uL Abs Immat Gran (auto) 0.03 (0.00-0.03) X10*3/uL Absolute Neuts (auto) 6.8 (2.0-8.3) x10*3/uL Absolute Nucleated RBC 0.000 (0.0-0.012) X10*3/uL Nucleated RBC % (auto) 0.0 (0.0-0.2) /100WBC Sodium 138 (135-145) mmol/L Potassium 3.3 (3.3-5.1) mmol/L Chloride 104 (96-108) mmol/L Carbon Dioxide 23 (22-29) mmol/L Anion Gap 14 (12-20) BUN 19 H (9-16) mg/dL Creatinine 0.96 (0.5-1.4) mg/dL Estim Creat Clear Calc 128.8 Estimated GFR > 60 Random Glucose 148 H (60-115) mg/dL Calcium 9.6 (8.4-10.2) mg/dL Magnesium 1.9 (1.6-2.6) mg/dL Total Bilirubin 1.4 H (0.0-1.0) mg/dL Direct Bilirubin 0.4 (0.0-0.5) mg/dL AST 33 (5-37) U/L ALT 21 (0-40) U/L Alkaline Phosphatase 117 (39-117) U/L Total Protein 7.1 (6.5-8.0) g/dL Albumin 4.8 (3.5-5.0) g/dL Lipase 28 (8-78) U/L Urine Color Dark Yellow Urine Appearance Cloudy Urine pH 5.5 (5.0-9.0) Ur Specific [place] >= 1.030 H (1.005-1.025) Urine Protein 100 (2+) H (Neg-Trace) mg/dL Urine Glucose (UA) Negative (Negative) mg/dL Urine Ketones 15 (Negative) mg/dL Urine Blood Small (1+) H (Negative) Urine Nitrite Negative (Negative) Ur Leukocyte Esterase Negative (Negative) Urine RBC 3-5 H (0-2) /HPF Urine WBC 0-5 (0-5) /HPF Ur Squamous Epith Cells 0-2 (0-2) /HPF Calcium Oxalate Crystal Present Urine Bacteria None Seen (None Seen) Hyaline Casts 3-5 (0-2) /LPF Urine Opiates Screen (Not Detect) Urine Fentanyl Screen (Not Detect) Ur Barbiturates Screen (Not Detect) Ur Phencyclidine Scrn (Not Detect) Ur Amphetamines Screen (Not Detect) U Benzodiazepines Scrn (Not Detect) Urine Cocaine Screen (Not Detect) U Marijuana (THC) Screen (Not Detect) Ethyl Alcohol < 10 mg/dL 02/11/23 Range/Units 22:20 WBC (4.8-10.8) X10*3/uL RBC (4.60-5.80) X10*6/uL Hgb (14.0-18.0) g/dl Hct (42.0-52.0) % MCV (80.0-98.0) fL MCH (27.0-33.0) pg MCHC (31.0-36.0) g/dl RDW (11.0-16.0) % Plt Count (160-400) X10*3/uL MPV (9.4-12.4) fL Immature Gran % (Auto) (0.0-0.4) % Neut % (Auto) (45-73) % Lymph % (Auto) (20-40) % [place] % (Auto) (2-11) % Eos % (Auto) (0-4) % Baso % (Auto) (0-2) % Lymph # (Auto) (1.2-4.9) X10*3/uL [place] # (Auto) (0.1-1.2) X10*3/uL Eos # (Auto) (0.0-0.4) X10*3/uL Baso # (Auto) (0.0-0.2) X10*3/uL Abs Immat Gran (auto) (0.00-0.03) X10*3/uL Absolute Neuts (auto) (2.0-8.3) x10*3/uL Absolute Nucleated RBC (0.0-0.012) X10*3/uL Nucleated RBC % (auto) (0.0-0.2) /100WBC Sodium (135-145) mmol/L Potassium (3.3-5.1) mmol/L Chloride (96-108) mmol/L Carbon Dioxide (22-29) mmol/L Anion Gap (12-20) BUN (9-16) mg/dL Creatinine (0.5-1.4) mg/dL Estim Creat Clear Calc Estimated GFR Random Glucose (60-115) mg/dL Calcium (8.4-10.2) mg/dL Magnesium (1.6-2.6) mg/dL Total Bilirubin (0.0-1.0) mg/dL Direct Bilirubin (0.0-0.5) mg/dL AST (5-37) U/L ALT (0-40) U/L Alkaline Phosphatase (39-117) U/L Total Protein (6.5-8.0) g/dL Albumin (3.5-5.0) g/dL Lipase (8-78) U/L Urine Color Urine Appearance Urine pH (5.0-9.0) Ur Specific [place] (1.005-1.025) Urine Protein (Neg-Trace) mg/dL Urine Glucose (UA) (Negative) mg/dL Urine Ketones (Negative) mg/dL Urine Blood (Negative) Urine Nitrite (Negative) Ur Leukocyte Esterase (Negative) Urine RBC (0-2) /HPF Urine WBC (0-5) /HPF Ur Squamous Epith Cells (0-2) /HPF Calcium Oxalate Crystal Urine Bacteria (None Seen) Hyaline Casts (0-2) /LPF Urine Opiates Screen POSITIVE H (Not Detect) Urine Fentanyl Screen Not Detected (Not Detect) Ur Barbiturates Screen Not Detected (Not Detect) Ur Phencyclidine Scrn Not Detected (Not Detect) Ur Amphetamines Screen Not Detected (Not Detect) U Benzodiazepines Scrn Not Detected (Not Detect) Urine Cocaine Screen Not Detected (Not Detect) U Marijuana (THC) Screen POSITIVE H (Not Detect) Ethyl Alcohol mg/dL <Joaquin Landaverde MD - Last Filed: 02/12/23 01:22> Independent Historian Clinical information obtained from an independent historian. History obtained from or confirmed by: Friend <Joaquin Landaverde MD - Last Filed: 02/12/23 01:22> External Record Review External record reviewed: Prior outpatient radiology <Joaquin Landaverde MD - Last Filed: 02/12/23 01:22> Tests considered The following testing was considered but not selected: Ultrasound of <Joaquin Landaverde MD - Last Filed: 02/12/23 01:22> Prescription Management I considered prescription management with: Pain Medication <Joaquin Landaverde MD - Last Filed: 02/12/23 01:22> Discharge Plan Discharge Clinical Impression: Abdominal pain, Intractable nausea and vomiting <XIOMY Hernandez - Last Filed: 02/11/23 19:43> Patient Disposition: Admitted As Inpatient <XIOMY Hernandez - Last Filed: 02/11/23 19:43> Prescriptions: No Action (MICHELLE) charisma Canales See Rx Instructions .ROUTE .MEDSUPPLY Qty: 1 0RF Rx Instructions: Sherly zafar oxycodone-acetaminophen [Percocet] 5-325 mg tablet 1 tab PO .q24 PRN (Reason: pain (scale score 4-6)) 30 Days Qty: 30 0RF amoxicillin 500 mg tablet 2,000 mg PO ONCE 1 Days Qty: 4 3RF Rx Instructions: take 4 capsules 1 hr prior to dental procedure epinephrine [EpiPen] 0.3 mg/0.3 mL Auto-Injector 0.3 mg IM Q10M PRN (Reason: Anaphylaxis) atorvastatin 20 mg tablet 1 tab PO DAILY aspirin 325 mg Tablet 325 mg PO BID 30 Days Qty: 60 0RF omeprazole 20 mg Capsule,Delayed Release(Dr/Ec) 20 mg PO BID@0630,1630 30 Days Qty: 60 0RF ondansetron HCl [Zofran] 4 mg tablet 4 mg PO Q8H PRN (Reason: nausea and vomiting) 7 Days Qty: 21 0RF ondansetron HCl 4 mg tablet 4 mg PO Q6H PRN (Reason: nausea and vomiting) Qty: 14 0RF ibuprofen 800 mg tablet 800 mg PO TID PRN (Reason: pain) 30 Days Qty: 90 1RF lisinopril 10 mg tablet 10 mg PO BEDTIME amitriptyline 25 mg tablet 25 mg PO BEDTIME citalopram 40 mg tablet 40 mg PO BEDTIME zolpidem [Ambien] 5 mg tablet 5 mg PO BEDTIME PRN (Reason: Insomnia) ondansetron 8 mg tablet,disintegrating 8 mg PO Q12H PRN (Reason: nausea and vomiting) 5 Days Qty: 10 0RF scopolamine base 1 mg over 3 days patch 3 day 1 patch transdermal Q3D PRN (Reason: nausea and vomiting) Qty: 4 0RF <XIOMY Hernandez - Last Filed: 02/11/23 19:43>
[2023-02-11 19:41] VITALS: BP 169/88; PULSE 62; RESP 20; TEMP 36.3; O2SAT 99; BMI 38.8
[2023-02-11 20:07] LABS: MANUAL DIFF FLAG NO
[2023-02-11 20:10] LABS: Basophils Absolute Auto 0.1 X10*3/uL (0.0-0.2); Eosinophils Absolute Auto 0.1 X10*3/uL (0.0-0.4); Eosinophils Percent Auto 0.5 % (0-4); Hematocrit 47.4 % (42.0-52.0); Hemoglobin 16.8 g/dl (14.0-18.0); Imm Gran Abs Auto 0.03 X10*3/uL (0.00-0.03); Imm Gran Pct Auto 0.3 % (0.0-0.4); Lymphocytes Absolute Auto 2.5 X10*3/uL (1.2-4.9); Lymphocytes Percent Auto 24.1 % (20-40); Mean Corpuscular HGB Conc 35.4 g/dl (31.0-36.0); Mean Corpuscular Hemoglobin 28.8 pg (27.0-33.0); Mean Corpuscular Volume 81.2 fL (80.0-98.0); Mean Platelet Volume 9.7 fL (9.4-12.4); Monocytes Absolute Auto 0.9 X10*3/uL (0.1-1.2); Neutrophils Absolute Auto 6.8 x10*3/uL (2.0-8.3); Neutrophils Percent Auto 65.1 % (45-73); Platelet Count 279 X10*3/uL (160-400); Red Blood Count 5.84 X10*6/uL (4.60-5.80); Red Cell Distribution Width 13.5 % (11.0-16.0); White Blood Count 10.5 X10*3/uL (4.8-10.8)
[2023-02-11 20:29] LABS: Alanine Aminotransferase 21 U/L (0-40); Albumin Level 4.8 g/dL (3.5-5.0); Alkaline Phosphatase 117 U/L (39-117); Anion Gap 14 (12-20); Aspartate Amino Transferase 33 U/L (5-37); Bilirubin Direct 0.4 mg/dL (0.0-0.5); Bilirubin Total 1.4 mg/dL (0.0-1.0); Blood Urea Nitrogen 19 mg/dL (9-16); Calcium 9.6 mg/dL (8.4-10.2); Carbon Dioxide 23 mmol/L (22-29); Chloride 104 mmol/L (96-108); Creatinine Clr Calc Pharmacy 128.8; Estimated Glomerular Filt Rate > 60; Ethanol < 10 mg/dL; Glucose Random 148 mg/dL (60-115); Lipase 28 U/L (8-78); Magnesium 1.9 mg/dL (1.6-2.6); Potassium 3.3 mmol/L (3.3-5.1); Sodium 138 mmol/L (135-145); Total Protein 7.1 g/dL (6.5-8.0)
--- OUTSIDE RECORDS SUMMARY | 2023-02-11 20:59 | XMS_ITS | Continuity of Care Document ---
Author Name Unknown Organization [facility] ter Address [address] [place] [id number] Care Team Providers Care Gis Professor Name Role Phone Not on Staff, PCP Primary Care Physician Unavail able Encounter [facility] [place] Date(s): 06/21/21 - 06/22/[address] [address]- Discharge Disposition: A-D/C Walkout Attending Physician: Herber Light MD Admitting Physician: Herber Light MD Referring Physician: Not on Staff, Referring MD Allergies, Adverse Reactions, Alerts Substance Reaction Severity Status NKA Active Medications amitriptyline 25 mg oral tablet 1 tablet = 25 mg, By Mouth, Daily at bedtime, # 30 tablet, 0 Refills, Maintenance, Tablet Start Date: 03/01/13 Stop Date: 03/31/13 Status: Ordered citalopram 40 mg oral tablet 1 tablet = 40 mg, By Mouth, Daily, 0 Refills, Maintenance Start Date: 06/28/12 Status: Ordered ibuprofen 600 mg oral tablet 1 tablet = 600 mg, By Mouth, Every 8 hours, # 90 tablet, 0 Refills, Maintenance, Tablet Start Date: 03/01/13 Stop Date: 03/31/13 Status: Ordered Lisinopril Tablet 15 mg, By Mouth, Daily, Maintenance, 07/11/11 16:33:10 Start Date: 07/11/11 Status: Ordered Percocet-5 Tablet 1, tablet, By Mouth, Every 6 hours, Maintenance, 02/26/13 11:11:01 Start Date: 02/26/13 Status: Ordered ProAir HFA 90 mcg/inh inhalation aerosol with adapter 2 puffs, Inhalation, Every 4 hours, PRN for wheezing, # 8.5 Gm, 0 Refills, Maintenance, Aerosol Start Date: 02/27/13 Status: Ordered promethazine 12.5 mg oral tablet 1 tablet = 12.5 mg, By Mouth, 3 times a day, PRN Nausea & Vomiting, 0 Refills, Maintenance Start Date: 02/27/13 Status: Ordered simvastatin 10 mg oral tablet 1 tablet = 10 mg, By Mouth, Daily at bedtime, 0 Refills, Maintenance Start Date: 06/28/12 Status: Ordered Ultram = 50 mg, By Mouth, Every 4 hours, 0 Refills, Maintenance Start Date: 09/21/12 Status: Ordered Problem List Condition Effective Dates Status Health Status Inform ant Esophageal reflux (GERD)(Confirmed) Active History of right inguinal he rnia repair(Confirmed) Active HTN (hypertension)(Confirmed) Active Hypercholesterolemia(Confirmed) Active Obstructive sleep apnea(Confirmed) Active 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 Vital Signs Most recent to oldest [Reference Range]: 1 2 Oxygen Saturation [94-100 %] 99 % (06/21/21 10:51 PM) 97 % (06/21/21 8:56 PM) Pulse Rate [55-90 bpm] 102 bpm *H* (06/21/21 10:51 PM) 111 bpm *H* (06/21/21 8:56 PM) Blood Pressure [90-138/55-84 mm Hg] 105/ 77mm Hg (06/21/21 10:51 PM) 143/117mm Hg *H* (06/21/21 8:56 PM) Respiratory Rate [16-30 br/min] 16 br/mi n (06/21/21 10:51 PM) 16 br/min (06/21/21 8:56 PM) Temperature [96.8-100.4 DegF] 98.0 DegF (06/21/21 10:51 PM) 98.6 DegF (06/21/21 8:56 PM) Mode of Delivery (Oxygen) Room air (06/21/21 10:51 PM) Room air (06/21/21 8:56 PM) Blood pressure sites Arm, left (06/21/21 10:51 PM) Arm, right (06/21/21 8:56 PM) Temperature Route Oral (06/21/21 10:51 PM) Oral (06/21/21 8:56 PM)
[2023-02-11] MEDS: 0.9 % Sodium Chloride 1,000 ML 999 ML IV (21:33)
[2023-02-11 21:34] VITALS: RESP 20
[2023-02-11] MEDS: Morphine Sulfate 4 MG/ML CARTRIDGE IVPUSH (21:34)
[2023-02-11] MEDS: Metoclopramide HCl 10 MG/2 ML VIAL IVPUSH (21:35)
[2023-02-11 22:42] LABS: Amphetamine Screen Urine Not Detected (Not Detect); Appearance Urine Cloudy; Barbiturates, Urine Not Detected (Not Detect); Benzodiazepines Screen Urine Not Detected (Not Detect); Cannabinoid Screen Urine POSITIVE (Not Detect); Cocaine Screen Urine Not Detected (Not Detect); Color Urine Dark Yellow; Fentanyl, urine Not Detected (Not Detect); Glucose Urine UA Negative (Negative); Leukocyte Esterase Urine Negative (Negative); Nitrite Urine Negative (Negative); Opiate Screen Urine POSITIVE (Not Detect); PH 5.5 (5.0-9.0); Phencyclidine Screen Urine Not Detected (Not Detect); Specific Gravity - Urine >= 1.030 (1.005-1.025); UMIC TRIGGER UACC YES; Urine Blood Small (1+) (Negative); Urine Ketones 15 mg/dL (Negative); Urine Protein 100 (2+) mg/dL (Neg-Trace)
[2023-02-11 23:04] LABS: Bacteria Urine None Seen (None Seen); Calcium Oxalate Crystals Urine Present; Squamous Epithelial Cell Urine 0-2 /HPF (0-2); WBC Urine 0-5 /HPF (0-5)
[2023-02-11 23:17] VITALS: BP 136/95; PULSE 87; RESP 18; TEMP 36.9; O2SAT 90
[2023-02-11] MEDS: HYDROmorphone HCl 1 MG/ML SYRINGE IVPUSH (23:24)
[2023-02-12] VITALS (9 sets, daily range): BP systolic 121–193; BP diastolic 63–98; PULSE 54–59; RESP 16–21; TEMP 36.1–37.1; O2SAT 95–100
--- NOTE | 2023-02-12 01:30 | PM.IMHP ---
History of Present Illness Date of Service: 02/12/23 Chief Complaint: intractable nausea vomiting 58-year-old male with past medical history of hyperlipidemia, depression anxiety, hypertension, comes into the hospital with complaints of intractable nausea vomiting, reports symptoms started about 2-3 days ago, seen in the hospital on 02/10, given antiemetics, but has not resolved, reports diffuse abdominal pain worse in the lower abdomen, nonradiating, Cramping,8/10, constant, no relieving or exacerbating factors, has had multiple episodes of nausea vomiting, minimally relieved with IV Zofran, 6 no diarrhea constipation, no urinary symptoms and no lower extremity edema. denies any chest pain, no shortness of breath, no fever, has chills, no urinary symptoms and no lower extremity edema. Patient states that he H marijuana the form of cookies, reports no relief with hot showers. Has a history of gastric bypass 2 years ago, and had a similar episode around that time. On arrival to the ED patient hemodynamically stable with no significant abnormal vitals except for slightly elevated blood pressure Labs are significant for WBC count of 10.5, labs otherwise unremarkable, UA shows negative nitrites and leukocyte Estrace, UDS positive for opioids and marijuana THC abdominal pelvic CT done on 02/10 showed no acute findings, KUB negative Review of Systems Review of Systems: Yes all other systems are reviewed and are negative [facility] Medical History Chronic pain syndrome Elevated cholesterol HTN (hypertension) Primary osteoarthritis of right knee Sleep apnea Type 2 diabetes mellitus Family History Mother Parkinson disease Surgical History H/O bariatric surgery H/O colonoscopy History of total left knee replacement (TKR) Hx of appendectomy Hx of arthroscopic knee surgery Hx of foot surgery Hx of foot surgery Hx of hand surgery Hx of lumbar discectomy Hx of right inguinal hernia repair Social History Household Members: Family Housing: House Are you a primary nurse care manager to a significant other at home: No Do you presently have visiting nurse or other home services: No Alcohol intake: unknown Patient Tobacco Use Status: Former Tobacco user Quit Date: 2005 Tobacco use type: Cigarette Years Smoked: 15 Smoked in Last 30 Days: No Use of substances other than those prescribed or required for medical reasons: No Advance Directives: No Advance Directives Information Provided: No service: No Current occupational status: unemployed Current occupation: Right Handed Meds Allergies Allergy/AdvReac Type Severity Reaction Status Date / Time bee pollen [BEE STINGS] Allergy Severe ANAPHYLACTIC Verified 10/05/21 16:14 SHOCK- CARRIES EPI PEN Active Medications: Current Medications Sodium Chloride (Ns) 1,000 mls @ 999 mls/hr IV .Q1H1M BHARTI Stop: 02/12/23 02:15 Home Medications Medication Instructions Recorded Confirmed Last Taken Type amitriptyline 25 mg tablet 25 mg PO BEDTIME 11/18/20 05/18/21 Unknown History citalopram 40 mg tablet 40 mg PO BEDTIME 11/18/20 05/18/21 Unknown History lisinopril 10 mg tablet 10 mg PO BEDTIME 11/18/20 05/18/21 Unknown History zolpidem 5 mg tablet (Ambien) 5 mg PO BEDTIME PRN Insomnia 11/18/20 05/18/21 Unknown History epinephrine 0.3 mg/0.3 mL 0.3 mg IM Q10M PRN Anaphylaxis 02/11/21 05/18/21 Unknown History injection, auto-injector (EpiPen) atorvastatin 20 mg tablet 1 tab PO DAILY 02/16/21 05/18/21 Unknown History Physical Exam Vital Signs and Narrative: Vital Signs: Last Vital Signs Temp 98.4 F 02/11/23 23:17 Pulse 87 02/11/23 23:17 Resp 18 02/12/23 00:53 BP 136/95 H 02/11/23 23:17 Pulse Ox 90 L 02/11/23 23:17 O2 Del Method Room Air 02/11/23 23:17 BMI result Body Mass Index 38.8 Const: General: cooperative and no acute distress Orientation/consciousness: patient oriented x3 Eyes: General: appearance normal, both eyes and all related structures Pupils: Equal, round and reactive pupils present Resp: Effort & Inspection: normal respiratory effort Auscultation: clear to auscultation bilaterally Cardio: Rate: regular rate Rhythm: regular rhythm GI: Other: abdomen is diffusely tender, no epigastric tenderness Palpation (GI): Soft to palpation Auscultation: normal bowel sounds Skin: General skin exam: no rashes or lesions noted Neuro: General: patient oriented x3 Cranial nerves: Yes Equal, round and reactive pupils present Cognition (Neuro): normal cognition Extrem: General: Yes normal to inspection and Yes no pedal edema Results Labs 02/11/23 20:03 02/11/23 20:03 Labs: Laboratory Results - last 24 hr 02/11/23 02/11/23 02/11/23 20:03 20:03 22:20 MCV 81.2 MCH 28.8 MCHC 35.4 RDW 13.5 Plt Count 279 MPV 9.7 Immature Gran % (Auto) 0.3 Neut % (Auto) 65.1 Lymph % (Auto) 24.1 Trinity % (Auto) 9.0 Eos % (Auto) 0.5 Baso % (Auto) 1.0 Lymph # (Auto) 2.5 Trinity # (Auto) 0.9 Eos # (Auto) 0.1 Baso # (Auto) 0.1 Abs Immat Gran (auto) 0.03 Absolute Neuts (auto) 6.8 Absolute Nucleated RBC 0.000 Nucleated RBC % (auto) 0.0 Anion Gap 14 Estim Creat Clear Calc 128.8 Estimated GFR > 60 Random Glucose 148 H Calcium 9.6 Magnesium 1.9 Total Bilirubin 1.4 H Direct Bilirubin 0.4 AST 33 ALT 21 Alkaline Phosphatase 117 Total Protein 7.1 Albumin 4.8 Lipase 28 Urine Color Dark Yellow Urine Appearance Cloudy Urine pH 5.5 Ur Specific Dais[place] >= 1.030 H Urine Protein 100 (2+) H Urine Glucose (UA) Negative Urine Ketones 15 Urine Blood Small (1+) H Urine Nitrite Negative Ur Leukocyte Esterase Negative Urine RBC 3-5 H Urine WBC 0-5 Ur Squamous Epith Cells 0-2 Calcium Oxalate Crystal Present Urine Bacteria None Seen Hyaline Casts 3-5 Urine Opiates Screen Urine Fentanyl Screen Ur Barbiturates Screen Ur Phencyclidine Scrn Ur Amphetamines Screen U Benzodiazepines Scrn Urine Cocaine Screen U Marijuana (THC) Screen Ethyl Alcohol < 10 02/11/23 22:20 MCV MCH MCHC RDW Plt Count MPV Immature Gran % (Auto) Neut % (Auto) Lymph % (Auto) Trinity % (Auto) Eos % (Auto) Baso % (Auto) Lymph # (Auto) Trinity # (Auto) Eos # (Auto) Baso # (Auto) Abs Immat Gran (auto) Absolute Neuts (auto) Absolute Nucleated RBC Nucleated RBC % (auto) Anion Gap Estim Creat Clear Calc Estimated GFR Random Glucose Calcium Magnesium Total Bilirubin Direct Bilirubin AST ALT Alkaline Phosphatase Total Protein Albumin Lipase Urine Color Urine Appearance Urine pH Ur Specific Dais[place] Urine Protein Urine Glucose (UA) Urine Ketones Urine Blood Urine Nitrite Ur Leukocyte Esterase Urine RBC Urine WBC Ur Squamous Epith Cells Calcium Oxalate Crystal Urine Bacteria Hyaline Casts Urine Opiates Screen POSITIVE H Urine Fentanyl Screen Not Detected Ur Barbiturates Screen Not Detected Ur Phencyclidine Scrn Not Detected Ur Amphetamines Screen Not Detected U Benzodiazepines Scrn Not Detected Urine Cocaine Screen Not Detected U Marijuana (THC) Screen POSITIVE H Ethyl Alcohol Assessment and Plan (1) Intractable nausea and vomiting: Status: Acute (2) Abdominal pain: Status: Acute Plan 58-year-old male with past medical history of bariatric surgery, hyperlipidemia, hypertension, presents the hospital with intractable nausea vomiting # intractable nausea vomiting/abdominal pain - possibly secondary to viral gastroenteritis versus gastroparesis in the setting of bariatric surgery, versus cyclic vomiting in the setting of THC use - abdominal CT, KUB negative - supportive measures, with IV fluids, antiemetics - given failed outpatient therapy, will admit, and monitor resolution of symptoms # hyperlipidemia - continue statin # hypertension - elevated - will continue home antihypertensive DVT prophylaxis: Early ambulation Time Spent With Patient Time: Total time managing care of this patient today ____ minutes. Quality Stroke Does the patient have a stroke diagnosis?: No VTE Prior VTE?: No VTE Risk Level:: Medical - low VTE Device Contraindication: Treatment Not Indicated VTE Drug Contraindication: Treatment Not Indicated
[2023-02-12] MEDS: HYDROmorphone HCl 0.5 MG/0.5 ML SYRINGE IVPUSH (02:39)
[2023-02-12] MEDS: ondansetron HCL 4 MG/2 ML VIAL IVPUSH (02:40)
[2023-02-12] MEDS: 0.9 % Sodium Chloride 1,000 ML 100 ML IVCONT ×3 (03:47→22:04)
--- NOTE | 2023-02-12 05:51 | PC.NURSE ---
Report given to observation unit nurse. Patient ready for transport.
[2023-02-12] MEDS: Morphine Sulfate 4 MG/ML CARTRIDGE IVPUSH ×3 (06:33→22:03)
[2023-02-12 07:12] LABS: MANUAL DIFF FLAG NO
[2023-02-12 07:20] LABS: Basophils Absolute Auto 0.1 X10*3/uL (0.0-0.2); Basophils Percent Auto 0.5 % (0-2); Hematocrit 48.1 % (42.0-52.0); Hemoglobin 16.6 g/dl (14.0-18.0); Imm Gran Abs Auto 0.06 X10*3/uL (0.00-0.03); Imm Gran Pct Auto 0.5 % (0.0-0.4); Lymphocytes Absolute Auto 1.9 X10*3/uL (1.2-4.9); Lymphocytes Percent Auto 15.7 % (20-40); Mean Corpuscular HGB Conc 34.5 g/dl (31.0-36.0); Mean Corpuscular Hemoglobin 28.5 pg (27.0-33.0); Mean Corpuscular Volume 82.6 fL (80.0-98.0); Mean Platelet Volume 9.8 fL (9.4-12.4); Monocytes Absolute Auto 0.9 X10*3/uL (0.1-1.2); Monocytes Percent Auto 7.2 % (2-11); Neutrophils Absolute Auto 9.3 x10*3/uL (2.0-8.3); Neutrophils Percent Auto 76.1 % (45-73); Platelet Count 297 X10*3/uL (160-400); Red Blood Count 5.82 X10*6/uL (4.60-5.80); Red Cell Distribution Width 13.4 % (11.0-16.0); White Blood Count 12.2 X10*3/uL (4.8-10.8)
[2023-02-12 07:36] LABS: Anion Gap 14 (12-20); Blood Urea Nitrogen 15 mg/dL (9-16); Calcium 9.8 mg/dL (8.4-10.2); Carbon Dioxide 24 mmol/L (22-29); Chloride 104 mmol/L (96-108); Creatinine Clr Calc Pharmacy 154.6; Estimated Glomerular Filt Rate > 60; Glucose Random 112 mg/dL (60-115); Potassium 3.5 mmol/L (3.3-5.1); Sodium 138 mmol/L (135-145)
--- NOTE | 2023-02-12 08:21 | PHA.MEDREC ---
Pharmacy Consult ? Medication Reconciliation Med Rec done based on pharmacy Claim History Pharmacy has completed the medication reconciliation.
[2023-02-12] MEDS: Prochlorperazine Edisylate 10 MG/2 ML VIAL 5 MG IVPUSH ×2 (08:32→13:47)
--- NOTE | 2023-02-12 08:43 | PHA.MEDREC ---
Pharmacy Consult ? Medication Reconciliation Pharmacy has completed the medication reconciliation. Spoke to patient to confirm medications. No issues.
[2023-02-12] MEDS: oxyCODONE HCl Immed Release 5 MG TABLET PO (09:31)
--- NOTE | 2023-02-12 10:48 | PM.EVENT ---
Event Note Date of Service: 02/12/23 Event Note: This patient is seen and examined by hospitalist team this morning. Still has intractable nausea, unable to take p.o. much-overall little improvement Physical exam: Unchanged from before. and assessment and plan coordinated in APCs note, Agree with the plan in addition: intractable nausea vomiting/abdominal pain- d/d -plase see h&P. Continue supportive care antiemetic, IV fluid,ppi, Continue monitor Time Spent With Patient Time: Total time managing care of this patient today ____ minutes.
[2023-02-12] MEDS: Famotidine 20 MG TABLET PO (13:47)
--- NOTE | 2023-02-12 17:36 | PC.NURSE ---
MD Rae Notified via tiger text of a blood pressure of 193/98 at 1539. At this time pt endorsing severe abd pain, PRN morphine given, blood pressure recheck after 45 mins 121/63, pt endorses effective pain relief.
[2023-02-12] MEDS: Amitriptyline HCl 25 MG TABLET PO (22:03)
[2023-02-12] MEDS: Atorvastatin Calcium 20 MG TABLET PO (22:03)
[2023-02-12] MEDS: Latanoprost 0.005 % Ophth Sol 2.5 ML DROPS 1 DROP EYE-BOTH (22:03)
[2023-02-13] MEDS: Prochlorperazine Edisylate 10 MG/2 ML VIAL 5 MG IVPUSH (00:53)
[2023-02-13 03:13] VITALS: BP 146/76; PULSE 63; RESP 14; TEMP 36.4; O2SAT 99
[2023-02-13 06:00] VITALS: BMI 36.3
[2023-02-13] MEDS: Morphine Sulfate 4 MG/ML CARTRIDGE IVPUSH (06:11)
[2023-02-13] MEDS: 0.9 % Sodium Chloride 1,000 ML 100 ML IVCONT (07:26)
[2023-02-13] MEDS: Escitalopram Oxalate 20 MG TABLET PO (07:26)
[2023-02-13 07:44] VITALS: BP 133/77; PULSE 53; RESP 18; TEMP 36.8; O2SAT 91
--- NOTE | 2023-02-13 10:09 | MHC.CM.PN ---
PT REPORTS HE LIVES WITH HIS BROTHER AND IS INDEPENDENT WITH CARE PT HAS NO SERVICES AND ONLY A CPAP FOR DME PT REPORTS HE IS COVID VAX HE DECLINES TO COMPLETE A HCP PCP: KERRY SANZ OBSERVATION NOTICE DELIVERED CURRENT DC PLAN IS HOME WITH NO SERVICES VIA PRIVATE TRANSPORT
--- NOTE | 2023-02-13 10:10 | P.PNIM_ITS ---
Subjective Subjective Date of Service: 02/14/23 Interval History: intractable nausea vomiting/abdominal pain Review of Systems Still has intractable nausea, unable to take p.o. much-overall little improvement,will try clear liquid Physical Exam Vital Signs: Vital Signs: Last Vital Signs Temp 98.2 F 02/13/23 07:44 Pulse 53 02/13/23 07:44 Resp 18 02/13/23 07:44 BP 133/77 02/13/23 07:44 Pulse Ox 91 L 02/13/23 07:44 O2 Del Method Room Air 02/13/23 07:44 BMI result Body Mass Index 36.3 Appearance: Alert.? Oriented X3.nauseated . cvs: rrr, [id number] . res: clear to auscultation ,no rhonchii or wheezing abd: no rebound or guarding ,nt, bs present. ext pulses present , no cyanosis. neuro: axo3 , nonfocal. Objective Data Active Medications Acetaminophen (Acetaminophen 325 Mg Tablet) 650 mg PO Q6H PRN PRN Reason: Pain, Mild (Pain Scale 1-3) Amitriptyline HCl (Amitriptyline Hcl 25 Mg Tablet) 25 mg PO BEDTIME BHARTI Last Admin: 02/12/23 22:03 Dose: 25 mg Documented By: MIKE Atorvastatin Calcium (Atorvastatin Calcium 20 Mg Tablet) 20 mg PO BEDTIME BHARTI Last Admin: 02/12/23 22:03 Dose: 20 mg Documented By: MIKE Capsaicin (Capsaicin 0.025% Cream 60 Gm Tube) 1 appl TOPICAL QID PRN; Protocol PRN Reason: Pain, Mild (Pain Scale 1-3) Clotrimazole (Clotrimazole 1 % Cream 15 Gm Tube) 1 appl TOPICAL DAILY BHARTI; Protocol Last Admin: 02/13/23 07:28 Dose: Not Given Documented By: VEE Non-Admin Reason: Patient Refused Escitalopram Oxalate (Escitalopram Oxalate 20 Mg Tablet) 20 mg PO DAILY BHARTI Last Admin: 02/13/23 07:26 Dose: 20 mg Documented By: VEE Famotidine (Famotidine 20 Mg Tablet) 20 mg PO BID PRN PRN Reason: Heartburn Last Admin: 02/12/23 13:47 Dose: 20 mg Documented By: VIVIANE Sodium Chloride (Ns) 1,000 mls @ 100 mls/hr IVCONT .Q10H [facility] Last Admin: 02/13/23 07:26 Dose: 100 mls/hr Documented By: VEE Latanoprost (Latanoprost 0.005 % Ophth Julisa 2.5 Ml Drops) 1 drop EYE-BOTH BEDTIME [facility] Last Admin: 02/12/23 22:03 Dose: 1 drop Documented By: MIKE Lidocaine (Lidocaine 4 % Patch Adh..Patch) 1 patch TRANSDERMA DAILY [facility]; Protocol Last Admin: 02/13/23 07:28 Dose: Not Given Documented By: VEE Non-Admin Reason: Patient Refused Morphine Sulfate (Morphine Sulfate 4 Mg/Ml Cartridge) 4 mg IVPUSH Q4H PRN; Protocol PRN Reason: Pain, Severe (Pain Scale 7-10) Last Admin: 02/13/23 06:11 Dose: 4 mg Documented By: MIKE Prochlorperazine Edisylate (Prochlorperazine Edisylate 10 Mg/2 Ml Vial) 5 mg IVPUSH Q6H PRN PRN Reason: Nausea and Vomiting Last Admin: 02/13/23 00:53 Dose: 5 mg Documented By: MIKE Sodium Chloride (0.9 % Sodium Chloride Flush 3 Ml Syringe) 3 ml IVFLUSH QSHIFT [facility] Last Admin: 02/13/23 07:07 Dose: Not Given Documented By: VEE Non-Jamaal Reason: IV Running Labs 02/12/23 07:02 02/12/23 07:02 Assessment and Plan (1) Intractable nausea and vomiting: Status: Acute Plan 58-year-old male with past medical history of bariatric surgery, hyperlipidemia, hypertension, presents the hospital with intractable nausea vomiting ? intractable nausea vomiting/abdominal pain-? possibly secondary to viral gastroenteritis versus gastroparesis in the setting of bariatric surgery, versus cyclic vomiting in the setting of THC use -? abdominal CT, KUB negative improving supportive measures, with IV fluids, antiemetics,will try clear liquid ? hyperlipidemia-? continue? statin ? hypertension -? elevated-? will continue home antihypertensive ?DVT prophylaxis:? Early ambulation need to stay-actable nausea vomiting/abdominal pain Time Spent With Patient Time: Total time managing care of this patient today ____ minutes. Quality Stroke Does the patient have a stroke diagnosis?: No VTE Prior VTE?: No VTE Risk Level:: Medical - low VTE Device Contraindication: Treatment Not Indicated VTE Drug Contraindication: Treatment Not Indicated
[2023-02-13 11:41] VITALS: BP 160/84; PULSE 50; RESP 18; TEMP 36.2; O2SAT 100
[2023-02-13] MEDS: Famotidine 20 MG TABLET PO (11:43)
--- NOTE | 2023-02-13 13:02 | PM.DS ---
DS: Providers Provider Date of Service: 02/13/23 Date of admission: 02/12/23 01:28 Date of discharge: 02/13/23 Primary care physician: XIOMY Draper DS: Diagnosis Discharge Diagnosis (1) Intractable nausea and vomiting: Status: Acute DS: Summary Hospital Course Hospital Course: 58-year-old male with past medical history of hyperlipidemia, depression anxiety, hypertension, comes into the hospital with complaints of intractable nausea vomiting, reports symptoms started about 2-3 days ago, seen in the hospital on 02/10, given antiemetics, but has not resolved,? reports diffuse abdominal pain worse in the lower abdomen, nonradiating, ? Cramping,/, constant, no relieving or exacerbating factors, has had multiple episodes of nausea vomiting, minimally relieved with IV Zofran, 6 no diarrhea constipation, no urinary symptoms and no lower extremity edema. ?denies any chest pain, no shortness of breath, no fever, has chills, no urinary symptoms and no lower extremity edema.? Patient states that he? H marijuana the form of cookies, reports no relief with hot showers.? Has a history of gastric bypass 2 years ago, and had a similar episode around that time.? On arrival to the ED patient hemodynamically stable with no significant abnormal vitals except for slightly elevated blood pressure Labs are significant for WBC count of 10.5, labs otherwise unremarkable, UA shows negative nitrites and leukocyte Estrace, UDS positive for opioids and marijuana THC ?abdominal pelvic CT done on 02/10 showed no acute findings, KUB negative. Hospital course: Patient was admitted due to intractable nausea vomiting possibly secondary to cyclic vomiting syndrome related to marijuana use. Patient was started on supportive therapy including IV hydration, antiemetics and slowly advanced diet to clear liquids patient is seems to be improving, if tolerates diet then will plan to discharge. Patient was strongly advised to quit marijuana use. Time Spent with Patient Time attestation: Total time managing care of this patient today ____ minutes. Discharge coordination time: Greater than 30 minutes Quality: Safe Use of Opioids Does Pt have an Active Cancer Diagnosis on the Problem List?: No Quality: Stroke Does the patient have a stroke diagnosis?: No Physical Exam Vital Signs: Vital Signs: Last Vital Signs Temp 97.2 F 02/13/23 11:41 Pulse 50 02/13/23 11:41 Resp 18 02/13/23 11:41 BP 160/84 H 02/13/23 11:41 Pulse Ox 100 02/13/23 11:41 O2 Del Method Room Air 02/13/23 11:41 BMI result Body Mass Index 36.3 Appearance: Alert.? Oriented X3.nauseated . cvs: rrr, [id number] . res: clear to auscultation ,no rhonchii or wheezing abd: no rebound or guarding ,nt, bs present. ext pulses present , no cyanosis. neuro: axo3 , nonfocal. DS: Data Data Completed and Pending Completed studies during hospitalization [Text1]: Procedures Replacement of Left Knee Joint with Synthetic Substitute, Uncemented, Open Approach (02/16/21) Imaging Chest x-ray: Radiologist's impression: ITS Impressions KUB X-Ray 02/12/23 01:55 IMPRESSION: Nonobstructive bowel gas pattern. Discharge Plan Discharge Patient Disposition: Home, Self-Care Discharge Diagnosis: Intractable nausea vomiting secondary to marijuana use. Referrals: Jason Jha PA [Primary Care Provider] - 1 Week Discharge Medications: Continued (DME) walker Misc See Rx Instructions .ROUTE .MEDSUPPLY Qty: 1 0RF Rx Instructions: Folding front wheeled walker atorvastatin 20 mg tablet 1 tab PO BEDTIME latanoprost 0.005 % Drops 1 drp OPHTHALMIC (EYE) BEDTIME Rx Instructions: Instill 1 drop into each eye famotidine 20 mg Tablet 20 mg PO BID PRN (Reason: Heartburn) clotrimazole 1 % cream 1 appl topical DAILY lisinopril 10 mg tablet 10 mg PO BEDTIME amitriptyline 25 mg tablet 25 mg PO BEDTIME citalopram 40 mg tablet 40 mg PO BEDTIME Diet: Advance to usual diet Activity on Discharge: As tolerated Stand Alone Forms: Patient Portal Discharge page Care Plan Goals: Patient was admitted due to intractable nausea vomiting possibly secondary to cyclic vomiting syndrome related to marijuana use. Patient was started on supportive therapy including IV hydration, antiemetics and slowly advanced diet to clear liquids patient is seems to be improving, if tolerates diet then will plan to discharge. Patient was strongly advised to quit marijuana use. Health Concerns: As above. Plan of Treatment: As above. Assessment: As above. Patient Instructions: Cyclic Vomiting Syndrome (DC)
== END 2023-02-13 15:59 | disposition home or self-care (01) ==
LOC: HO.ED 02-12 01:21 → HO.EDOVER 02-12 01:33 → HO.S3 02-12 05:20
PROVIDERS: Physician Assistant; Admitting Provider Internal Medicine; Emergency Provider Emergency Medicine; PCP Physician Assistant Medical; Visit Provider Internal Medicine
DX: R11.2 Nausea with vomiting, unspecified (principal); F12.90 Cannabis use, unspecified, uncomplicated; R10.30 Lower abdominal pain, unspecified; E11.9 Type 2 diabetes mellitus without complications; I10 Essential (primary) hypertension; E78.5 Hyperlipidemia, unspecified; Z79.899 Other long term (current) drug therapy; Z79.02 Long term (current) use of antithrombotics/antiplatelets; Z79.82 Long term (current) use of aspirin; Z87.891 Personal history of nicotine dependence; Z98.84 Bariatric surgery status
CPT/HCPCS: 36415; 74018; 80048; 80076; 80307; 81001; 83690; 83735; 85025; 96361; 96365; 96375; 96376; 99221; 99284; 99285; J1170; J2270; J2405; J2550; J2765

== ENCOUNTER 2024-05-09 03:04 | Emergency (ER) | payer OTHER, SELFPAY ==
--- NOTE | ~2024-05-09 | CT_ITS ---
EXAMINATION: CT ABDOMEN AND PELVIS WITH CONTRAST CLINICAL INFORMATION: Nausea vomiting diarrhea COMPARISON: 02/10/2023 TECHNIQUE: Multidetector volumetric images were obtained from the superior aspect of the liver through the pubic symphysis following administration 85 mL of Omnipaque 350 intravenous contrast. Sagittal and coronal reformatted images were obtained on the technologist's workstation. Oral contrast: No This CT examination was performed using dose optimization techniques as appropriate, variously including the following: *Automated exposure control *Adjustment of mA and/or kV according to patient size (this includes techniques or standardized protocols for targeted exams where dose is matched to indication/reason for exam; i.e. extremities or head) *Use of iterative reconstruction technique DLP: 350 mGy-cm FINDINGS: LUNG BASES: The visualized lung bases are unremarkable. LIVER, GALLBLADDER, AND BILIARY TREE: Motion degrades imaging. No gross finding. Again motion significantly limits evaluation PANCREAS: Again motion limits evaluation. SPLEEN: Unremarkable. ADRENAL GLANDS: Unremarkable. KIDNEYS AND URETERS: Again motion limits evaluation. No evidence for obstruction. BLADDER: Unremarkable. GASTROINTESTINAL TRACT: Again motion limits evaluation of the right upper quadrant. There is no evidence for an obstructive process. No free fluid. The bowel pattern is nonobstructing. Diverticula disease but no evidence for diverticulitis ABDOMINAL WALL: Motion limits evaluation. LYMPH NODES: Again motion degrades imaging in the upper abdomen. No gross finding. VASCULAR: Unremarkable. PELVIC VISCERA: Unremarkable. OSSEOUS STRUCTURES: Unremarkable. CT/CT abdomen pelvis w IV con IMPRESSION: Again motion limits evaluation in the upper abdomen. No gross finding here. Correlation recommended clinically. If indicated consider repeat exam. Findings are otherwise described above Fleischner guidelines were followed.
[2024-05-09 03:14] VITALS: BP 150/73; BP 155/110; PULSE 68; PULSE 71; RESP 22; TEMP 36.8; O2SAT 100; O2SAT 96; BMI 30.4
[2024-05-09 03:39] LABS: Basophils Absolute Auto 0.1 X10*3/uL (0.0-0.2); Basophils Percent Auto 0.8 % (0-2); Eosinophils Percent Auto 0.2 % (0-4); Hemoglobin 17.5 g/dl (14.0-18.0); Imm Gran Abs Auto 0.06 X10*3/uL (0.00-0.03); Imm Gran Pct Auto 0.5 % (0.0-0.4); Lymphocytes Absolute Auto 1.3 X10*3/uL (1.2-4.9); Lymphocytes Percent Auto 9.6 % (20-40); MANUAL DIFF FLAG NO; Mean Corpuscular HGB Conc 36.5 g/dl (31.0-36.0); Mean Corpuscular Hemoglobin 28.9 pg (27.0-33.0); Mean Corpuscular Volume 79.2 fL (80.0-98.0); Mean Platelet Volume 9.4 fL (9.4-12.4); Monocytes Absolute Auto 0.7 X10*3/uL (0.1-1.2); Monocytes Percent Auto 5.6 % (2-11); Neutrophils Absolute Auto 10.8 x10*3/uL (2.0-8.3); Neutrophils Percent Auto 83.3 % (45-73); Platelet Count 279 X10*3/uL (160-400); Red Blood Count 6.06 X10*6/uL (4.60-5.80); Red Cell Distribution Width 13.2 % (11.0-16.0)
[2024-05-09 03:54] LABS: Alanine Aminotransferase 15 U/L (0-40); Albumin Level 5.1 g/dL (3.5-5.0); Alkaline Phosphatase 143 U/L (39-117); Anion Gap 21 (12-20); Aspartate Amino Transferase 18 U/L (5-37); Bilirubin Direct 0.4 mg/dL (0.0-0.5); Bilirubin Total 1.1 mg/dL (0.0-1.0); Blood Urea Nitrogen 14 mg/dL (9-16); Carbon Dioxide 17 mmol/L (22-29); Chloride 103 mmol/L (96-108); Creatinine Clr Calc Pharmacy 107.1; Estimated Glomerular Filt Rate > 60; Glucose Random 202 mg/dL (60-115); Lipase 19 U/L (8-78); Potassium 3.3 mmol/L (3.3-5.1); Sodium 138 mmol/L (135-145); Total Protein 8.1 g/dL (6.5-8.0)
[2024-05-09] MEDS: ondansetron HCL 4 MG/2 ML VIAL IVPUSH ×2 (04:14→07:22)
[2024-05-09] MEDS: 0.9 % Sodium Chloride 1,000 ML 999 ML IV ×3 (04:14→05:37)
--- NOTE | 2024-05-09 04:17 | PC.NURSE ---
spoke with dr Rice, and got orders for some medicine for nausea, pt medicated as ordered,
[2024-05-09 04:47] LABS: Appearance Urine Clear; Color Urine Yellow; Glucose Urine UA 250 mg/dL (Negative); Leukocyte Esterase Urine Trace (Negative); Nitrite Urine Negative (Negative); Specific Gravity - Urine >= 1.030 (1.005-1.025); UMIC TRIGGER UACC YES; Urine Blood Negative (Negative); Urine Ketones >=160 mg/dL (Negative); Urine Protein 30 (1+) mg/dL (Neg-Trace)
--- NOTE | 2024-05-09 05:02 | PC.NURSE ---
pt got upt to the bathroom and pulled his IV out. Pt states he doesn't feel good, feels dizzy and his face is tingling, and he feels like he can't breathe. Pt states he smoked some weed, yesterday at lunch. Pt assisted into a wheelchair and back to his room.
[2024-05-09 05:04] LABS: Bacteria Urine None Seen (None Seen); Hyaline Casts Urine 0-2 /LPF (0-2); RBC Urine 0-2 /HPF (0-2); Squamous Epithelial Cell Urine 0-2 /HPF (0-2); WBC Urine 0-5 /HPF (0-5)
--- NOTE | 2024-05-09 05:15 | PC.NURSE ---
informed dr brand of pt's saying his face is tingling, and he feel like he can't breathe. VSS. Pt up to the br, in wc, with tech, pt vomited in the bathroom and assisted back to his room
[2024-05-09 05:19] VITALS: BP 143/119; PULSE 71; RESP 16; TEMP 36.8; O2SAT 99
--- NOTE | 2024-05-09 05:28 | ED_ITS ---
HPI - Abdominal Pain General Chief Complaint: Abdominal Pain Stated Complaint: abd pain Time Seen by Provider: 05/09/24 04:57 History of Present Illness HPI narrative: Patient is a 59-year-old male presents today with having nausea vomiting diarrhea. Patient has had some chicken had some macaroni then had nausea vomiting diarrhea. Has a history of gastric sleeve surgery history of hernia surgery in the past. No fever no chills. No chest pain or diaphoresis. Feels very weak tired. Has diffuse abdominal cramping. No travel history. No recent antibiotics. Patient is from home. Related Data Home Medications ?Medication ?Instructions ?Recorded ?Confirmed amitriptyline 25 mg tablet 25 mg PO BEDTIME 11/18/20 02/12/23 citalopram 40 mg tablet 40 mg PO BEDTIME 11/18/20 02/12/23 lisinopril 10 mg tablet 10 mg PO BEDTIME 11/18/20 02/12/23 atorvastatin 20 mg tablet 1 tab PO BEDTIME 02/16/21 02/12/23 clotrimazole 1 % topical cream 1 appl topical DAILY 02/12/23 02/12/23 famotidine 20 mg tablet 20 mg PO BID PRN Heartburn 02/12/23 02/12/23 latanoprost 0.005 % eye drops 1 drp ophthalmic (eye) BEDTIME 02/12/23 02/12/23 Previous Rx's ?Medication ?Instructions ?Recorded walker #1 ea 02/18/21 Allergies Allergy/AdvReac Type Severity Reaction Status Date / Time bee pollen [BEE STINGS] Allergy Severe ANAPHYLACTIC Verified 05/09/24 03:16 SHOCK- CARRIES EPI PEN Review of Systems Review of Systems Positive abdominal pain Yes all other systems are reviewed and are negative PMFSH Past Medical History Attestation statement: The following information was validated with the patient. Medical History Chronic pain syndrome HTN (hypertension) Elevated cholesterol Primary osteoarthritis of right knee Sleep apnea Type 2 diabetes mellitus Surgical History History of total left knee replacement (TKR) Hx of appendectomy Hx of foot surgery Hx of hand surgery Hx of right inguinal hernia repair Hx of foot surgery Hx of lumbar discectomy H/O colonoscopy Hx of arthroscopic knee surgery H/O bariatric surgery Family History Family History Mother Parkinson disease Social History Social History Household Members: Family Housing: House Are you a primary day care home mother to a significant other at home: No Do you presently have visiting nurse or other home services: No Alcohol intake: unknown Patient Tobacco Use Status: Former Tobacco user Tobacco use type: Cigarette Years Smoked: 15 Smoked in Last 30 Days: No Use of substances other than those prescribed or required for medical reasons: No Advance Directives: No Advance Directives Information Provided: Yes Do you have a plan to hurt others: No Plan service: No Current occupational status: unemployed Current occupation: Right Handed Physical Exam ED Vital Signs: Vital Signs - 24 hr 05/09/24 03:14 05/09/24 05:19 05/09/24 06:50 Temperature 98.2 F 98.3 F 98.1 F Pulse Rate 71 71 71 Respiratory Rate 22 H 16 16 Blood Pressure 150/73 H 143/119 H 168/78 H Pulse Oximetry 100 99 98 Oxygen Delivery Method Room Air Room Air Room Air BMI result Body Mass Index 30.4 Appearance: Alert. Oriented X3. No acute distress. Eyes: Pupils equal, round and reactive to light. ENT: Pharynx normal. Neck: Normal inspection. Neck supple. No lymph nodes noted. No crepitus CVS: Normal heart rate and rhythm. Pulses normal. Normal S1 and S2 Respiratory: No respiratory distress. Breath sounds normal. No Wheezing. No rales Abdomen: Soft and nontender. No rigidity. No distention. good BS x4 Skin: Skin warm and dry. Normal skin color. Normal skin turgor. Extremities: No lower extremity edema. Neurovascular intact to all extremities. No Lacerations. No Rash Neuro: Oriented X 3. No motor deficit. No sensory deficit. Moving all extermities. No slurred speech Medical Decision Making Medical Decision Making MDM Narrative: Patient appears very anxious. Had previous abdominal surgery including previous gastric sleeve, hernia surgery. CT scan of the abdomen pelvis was ordered. IV fluid and nausea medication ordered. A dose of Valium offered for anxiety. Will monitor carefully. Patient's initial electrolytes showed an anion gap. Given IV fluids will recheck patient's electrolytes. CT scan of the abdomen pelvis still pending at this point. Dose of Zofran was given for nausea. Differential Diagnosis Differential Diagnoses: The differential diagnosis associated with the presentation includes Gastroenteritis, obstruction Admission/Observation Consideration of admission/observation: Escalation of care including admission/observation considered Lab Data 05/09/24 03:34 05/09/24 03:34 Labs: Lab Results 05/09/24 05/09/24 Range/Units 03:34 04:40 WBC 13.0 H (4.8-10.8) X10*3/uL RBC 6.06 H (4.60-5.80) X10*6/uL Hgb 17.5 (14.0-18.0) g/dl Hct 48.0 (42.0-52.0) % MCV 79.2 L (80.0-98.0) fL MCH 28.9 (27.0-33.0) pg MCHC 36.5 H (31.0-36.0) g/dl RDW 13.2 (11.0-16.0) % Plt Count 279 (160-400) X10*3/uL MPV 9.4 (9.4-12.4) fL Immature Gran % (Auto) 0.5 H (0.0-0.4) % Neut % (Auto) 83.3 H (45-73) % Lymph % (Auto) 9.6 L (20-40) % [place] % (Auto) 5.6 (2-11) % Eos % (Auto) 0.2 (0-4) % Baso % (Auto) 0.8 (0-2) % Lymph # (Auto) 1.3 (1.2-4.9) X10*3/uL [place] # (Auto) 0.7 (0.1-1.2) X10*3/uL Eos # (Auto) 0.0 (0.0-0.4) X10*3/uL Baso # (Auto) 0.1 (0.0-0.2) X10*3/uL Abs Immat Gran (auto) 0.06 H (0.00-0.03) X10*3/uL Absolute Neuts (auto) 10.8 H (2.0-8.3) x10*3/uL Absolute Nucleated RBC 0.000 (0.0-0.012) X10*3/uL Nucleated RBC % (auto) 0.0 (0.0-0.2) /100WBC Sodium 138 (135-145) mmol/L Potassium 3.3 (3.3-5.1) mmol/L Chloride 103 (96-108) mmol/L Carbon Dioxide 17 L (22-29) mmol/L Anion Gap 21 H (12-20) BUN 14 (9-16) mg/dL Creatinine 1.01 (0.5-1.4) mg/dL Estim Creat Clear Calc 107.1 Estimated GFR > 60 Random Glucose 202 H (60-115) mg/dL Calcium 11.0 H D (8.4-10.2) mg/dL Total Bilirubin 1.1 H (0.0-1.0) mg/dL Direct Bilirubin 0.4 (0.0-0.5) mg/dL AST 18 (5-37) U/L ALT 15 (0-40) U/L Alkaline Phosphatase 143 H (39-117) U/L Total Protein 8.1 H (6.5-8.0) g/dL Albumin 5.1 H (3.5-5.0) g/dL Lipase 19 (8-78) U/L Urine Color Yellow Urine Appearance Clear Urine pH 7.0 (5.0-9.0) Ur Specific [place] >= 1.030 H (1.005-1.025) Urine Protein 30 (1+) H (Neg-Trace) mg/dL Urine Glucose (UA) 250 H (Negative) mg/dL Urine Ketones >=160 (Negative) mg/dL Urine Blood Negative (Negative) Urine Nitrite Negative (Negative) Ur Leukocyte Esterase Trace H (Negative) Urine RBC 0-2 (0-2) /HPF Urine WBC 0-5 (0-5) /HPF Ur Squamous Epith Cells 0-2 (0-2) /HPF Urine Bacteria None Seen (None Seen) Hyaline Casts 0-2 (0-2) /LPF Independent Interpretation I performed an independent interpretation of an: CT Scan (No overt obstruction noted) External Record Review External record reviewed: Inpatient record (Previous admission for nausea vomiting reviewed) Chronic Conditions History of abdominal surgery including gastric sleeve and hernia surgery Medications Administered Discontinued Medications Generic Name Dose Route Start Last Admin Trade Name Freq PRN Reason Stop Dose Admin Diazepam 5 mg 07/31/24 05:27 05/09/24 05:35 Diazepam 10 Mg/2 Ml Cartridge IVPUSH 05/09/24 05:28 5 mg STAT STA Administration Sodium Chloride 1,000 mls @ 999 mls/hr 05/09/24 04:15 05/09/24 05:05 Ns IV 05/09/24 05:15 Infused .Q1H1M BHARTI Infusion Sodium Chloride 1,000 mls @ 999 mls/hr 05/09/24 05:30 05/09/24 05:36 Ns IV 05/09/24 06:30 999 mls/hr .Q1H1M BHARTI Administration Sodium Chloride 1,000 mls @ 999 mls/hr 05/09/24 05:30 05/09/24 05:37 Ns IV 05/09/24 06:30 999 mls/hr .Q1H1M BHARTI Administration Iohexol 100 ml 05/09/24 06:04 05/09/24 06:05 Iohexol 350 Mg/Ml 100 Ml Infus..Btl IV 05/09/24 06:05 100 ml ONCE ONE Administration Ondansetron HCl 4 mg 05/09/24 04:07 05/09/24 04:14 Ondansetron Hcl 4 Mg/2 Ml Vial IVPUSH 05/09/24 04:08 4 mg ONCE ONE Administration Discharge Plan Discharge Clinical Impression: Nausea vomiting and diarrhea Patient Disposition: Still a Patient Prescriptions: No Action (DME) walker Misc See Rx Instructions .ROUTE .MEDSUPPLY Qty: 1 0RF Rx Instructions: Folding front wheeled walker atorvastatin 20 mg tablet 1 tab PO BEDTIME latanoprost 0.005 % Drops 1 drp OPHTHALMIC (EYE) BEDTIME Rx Instructions: Instill 1 drop into each eye famotidine 20 mg Tablet 20 mg PO BID PRN (Reason: Heartburn) clotrimazole 1 % cream 1 appl topical DAILY lisinopril 10 mg tablet 10 mg PO BEDTIME amitriptyline 25 mg tablet 25 mg PO BEDTIME citalopram 40 mg tablet 40 mg PO BEDTIME Print Language: Kiswahili
[2024-05-09] MEDS: diazePAM 10 MG/2 ML CARTRIDGE 5 MG IVPUSH (05:35)
[2024-05-09] MEDS: iohexoL 350 MG/ML 100 ML INFUS..BTL IV (06:05)
[2024-05-09 06:50] VITALS: BP 168/78; PULSE 71; RESP 16; TEMP 36.7; O2SAT 98
[2024-05-09 07:22] LABS: Glucose, Whole Blood 155 mg/dL (60-115)
[2024-05-09 07:40] LABS: Anion Gap 17 (12-20); Blood Urea Nitrogen 12 mg/dL (9-16); Calcium 9.8 mg/dL (8.4-10.2); Carbon Dioxide 19 mmol/L (22-29); Chloride 109 mmol/L (96-108); Creatinine Clr Calc Pharmacy 120.2; Estimated Glomerular Filt Rate > 60; Glucose Random 154 mg/dL (60-115); Potassium 3.6 mmol/L (3.3-5.1); Sodium 141 mmol/L (135-145)
[2024-05-09 07:50] VITALS: BP 165/81; PULSE 70; RESP 20; TEMP 36.4; O2SAT 97
[2024-05-09] MEDS: Dicyclomine HCl 10 MG CAPSULE PO (08:03)
[2024-05-09 08:49] VITALS: BP 164/61; PULSE 66; RESP 20; TEMP 36.7; O2SAT 99
== END 2024-05-09 08:49 | disposition home or self-care (01) ==
PROVIDERS: Emergency Provider Emergency Medicine Emergency Medical Services
DX: R11.2 Nausea with vomiting, unspecified (principal); R19.7 Diarrhea, unspecified; Z79.899 Other long term (current) drug therapy
CPT/HCPCS: 36415; 74177; 80048; 80076; 81001; 82947; 83690; 85025; 96361; 96374; 96375; 96376; 99284; J2405; J3360; Q9967

== ENCOUNTER 2025-02-08 07:24 | Emergency (ER) | payer OTHER, SELFPAY ==
--- NOTE | ~2025-02-08 | CT_ITS ---
EXAMINATION: CT ABDOMEN AND PELVIS WITHOUT CONTRAST CLINICAL INFORMATION: Nausea and vomiting. Status post Gastric sleeve. COMPARISON: May 09, 2024. TECHNIQUE: Multidetector volumetric imaging was performed from the superior aspect of the liver through the pubic symphysis. Sagittal and coronal reformatted images were obtained on the technologist's workstation. This CT examination was performed using dose optimization techniques as appropriate, variously including the following: *Automated exposure control *Adjustment of mA and/or kV according to patient size (this includes techniques or standardized protocols for targeted exams where dose is matched to indication/reason for exam; i.e. extremities or head) *Use of iterative reconstruction technique DLP: 918 mg centimeter FINDINGS: Limited evaluation of the intra-abdominal organs and vascular structures due to lack of IV contrast. LUNG BASES: No acute airspace disease. LIVER, GALLBLADDER, AND BILIARY TREE: Liver measures 16 cm. No intrahepatic biliary ductal dilatation. No pericholecystic fluid collection or gallbladder wall thickening. No extrahepatic biliary ductal dilatation. PANCREAS: No peripancreatic fluid collection. No main pancreatic ductal dilatation. SPLEEN: 7 cm. ADRENAL GLANDS: No nodular lesions. KIDNEYS AND URETERS: No hydronephrosis. No nephrolithiasis. BLADDER: Fluid-filled nearly collapsed. GASTROINTESTINAL TRACT: Sutures at the left lateral wall of the stomach. Small hiatal hernia. Gas-filled diverticulum, second portion of the duodenum. Numerous diverticula throughout the left hemicolon. Status post appendectomy. No intestinal obstruction pattern. There is swirling of the mesenteric vessels in the right hemiabdomen/peritoneal cavity. No ascites. No pneumoperitoneum. No pneumatosis intestinalis. No gross intestinal wall thickening. ABDOMINAL WALL: Small fat-containing umbilical hernia and diastases abdominal rectus muscles. LYMPH NODES: No specific prominent in the mesentery. VASCULAR: No aneurysm, abdominal aorta. PELVIC VISCERA: Inadequate evaluation. OSSEOUS STRUCTURES: Multilevel thoracolumbar spondylosis resulting in grade 1 retrolisthesis L2-3 and to a lesser extent L3-4 and L1-2 levels. Dextroconvex curvature apex at L1-2. Sclerosis and the sacroiliac joints. No acute fracture or dislocation, either hip. Bony pelvis is intact. CT/CT abdomen pelvis wo IV con IMPRESSION: No intestinal obstruction pattern. An internal hernia right hemiabdomen cannot be excluded. Diverticular disease, left hemicolon. Diverticulum, second portion of duodenum. Small fat-containing umbilical hernia and diastases abdominal rectus muscles. Fleischner guidelines were followed. Electronically signed by: Matty Frey MD 02/08/2025 09:31 AM EDT
[2025-02-08 07:35] VITALS: BP 168/80; PULSE 83; RESP 20; TEMP 37.1; O2SAT 97; BMI 38.4
[2025-02-08 08:09] LABS: MANUAL DIFF FLAG NO
--- NOTE | 2025-02-08 08:09 | ED.NAVMDI ---
HPI - Nausea/Vomiting/Diarrhea General Chief complaint: Nausea/Vomiting/Diarrhea Stated complaint: Vomiting Time Seen by Provider: 02/08/25 07:52 Source: patient Mode of arrival: ambulatory Limitations: no limitations History of Present Illness ED Provider: NORA RUTLEDGE Narrative: 60 year old male with PMHx of intractable nausea and vomiting, gastric sleeve, hernia repair, presents to the ED with abdominal pain, nausea and vomiting. He states symptoms began last night abruptly with no changes in diet or activity that precedes onset of symptoms, he has vomited numerous times. He has history of abdominal pain and intractable vomiting and states this episode feels similar. He states he has been taking his antacid medications as prescribed without effect. He denies recent travel, sick contacts, recent antibiotic use, bloody or bilious vomit, diarrhea, black or bloody stools, chest pain, SOB, or fever. He denies triggering event for this episode MD elicited complaint: nausea, vomiting and abdominal pain (diffuse) Pertinent past history: hernia (surgical repair) and abdominal surgery (gastric sleeve) Onset (ago): hour(s) Description of vomiting: continuous Associated nausea: Yes Associated abdominal pain: Yes Location of pain: diffuse Radiation: diffuse Pain consistency: constant Severity: moderate Quality: aching and constant Exacerbating factors: none Relieving factors: none Associated symptoms: denies other symptoms Related Data Home Medications ?Medication ?Instructions ?Recorded ?Confirmed amitriptyline 25 mg tablet 25 mg PO BEDTIME 11/18/20 02/12/23 citalopram 40 mg tablet 40 mg PO BEDTIME 11/18/20 02/12/23 lisinopril 10 mg tablet 10 mg PO BEDTIME 11/18/20 02/12/23 atorvastatin 20 mg tablet 1 tab PO BEDTIME 02/16/21 02/12/23 clotrimazole 1 % topical cream 1 appl topical DAILY 02/12/23 02/12/23 famotidine 20 mg tablet 20 mg PO BID PRN Heartburn 02/12/23 02/12/23 latanoprost 0.005 % eye drops 1 drp ophthalmic (eye) BEDTIME 02/12/23 02/12/23 Previous Rx's ?Medication ?Instructions ?Recorded walker #1 ea 02/18/21 hyoscyamine sulfate 0.125 mg 0.25 mg (2 x 0.125 mg) PO QID PRN 05/09/24 tablet (Levsin) cramping #20 tabs ondansetron 4 mg disintegrating 4 mg PO Q8H PRN nausea and 02/08/25 tablet vomiting #20 tabs prochlorperazine maleate 5 mg 5 mg PO BID PRN nausea and 02/08/25 tablet (Compazine) vomiting #20 tabs Allergies Allergy/AdvReac Type Severity Reaction Status Date / Time bee pollen [BEE STINGS] Allergy Severe ANAPHYLACTIC Verified 02/08/25 07:36 SHOCK- CARRIES EPI PEN Review of Systems Review of Systems: Constitutional : No Weight loss, No Fever, No Chills ENT/Mouth : No sore throat, No Rhinorrhea Eyes: No Swelling, No Redness Cardiovascular : No Chest Pain, No SOB, NoEdema Respiratory : No Cough, No Sputum, No Wheezing Gastrointestinal : Positive Nausea, Positive Vomiting, positive abdominal Pain, No Hematochezia, No Melena, no diarrhea Genitourinary : No Dysuria, No Urinary Frequency, No Hematuria, No Urgency Musculoskeletal : No joint pain, No Myalgias, No Joint Swelling Skin : No Skin Lesions, No rash Neuro : No Weakness, No Numbness, No Dizziness, No Headache Psych : No Anxiety/Panic, No Depression Heme/Lymph: No Bruising, No Lymphadenopathy Endocrine : No Polyuria, No Polydipsia All other systems reviewed and are negative. Gastrointestinal: Gastrointestinal: Reports nausea PMFSH Past Medical History Attestation statement: The following information was validated with the patient. Source: old records reviewed Medical History Chronic pain syndrome HTN (hypertension) Elevated cholesterol Primary osteoarthritis of right knee Sleep apnea Type 2 diabetes mellitus Surgical History History of total left knee replacement (TKR) Hx of appendectomy Hx of foot surgery Hx of hand surgery Hx of right inguinal hernia repair Hx of foot surgery Hx of lumbar discectomy H/O colonoscopy Hx of arthroscopic knee surgery H/O bariatric surgery Family History Family History Mother Parkinson disease Social History Social History Household Members: Family Housing: House Are you a primary child care development specialist to a significant other at home: No Do you presently have visiting nurse or other home services: No Alcohol intake: current Alcohol intake frequency: does not drink Patient Tobacco Use Status: Former Tobacco user Tobacco use type: Cigarette Years Smoked: 15 Smoked in Last 30 Days: No Substance Use Type: Marijuana Substance Use Frequency: Daily Last Used Substance: Days (ago) Advance Directives: No Advance Directives Information Provided: Yes Do you have a plan to hurt others: No Plan service: No Current occupational status: unemployed Current occupation: Right Handed Physical Exam Vital Signs: Vital Signs: Last Vital Signs Temp 97.9 F 02/08/25 10:08 Pulse 71 02/08/25 10:08 Resp 16 02/08/25 10:08 BP 164/82 H 02/08/25 10:08 Pulse Ox 99 02/08/25 10:08 O2 Del Method Room Air 02/08/25 10:08 BMI result Body Mass Index 38.4 Appearance: Alert. Oriented X3. mild distress due to abdominal pain. Eyes: Pupils equal, round and reactive to light. ENT: Pharynx normal. Neck: Normal inspection. Neck supple. CVS: Normal heart rate and rhythm. Pulses normal. Respiratory: No respiratory distress. Breath sounds normal. Abdomen: Soft and non-distended, diffusely tender to palpation. Skin: Skin warm and dry. Normal skin color. Normal skin turgor. Extremities: No lower extremity edema. No calf ttp Neuro: Oriented X 3. No motor deficit. No sensory deficit. CN2-12 intact Course Reevaluation(s) Reevaluation #1: CT abdomen/pelvis reveals internal hernia of right hemiabdomen, diverticular disease. Will consult surgery for evaluation of hernia. Time: 09:50 Reevaluation #2: CT scan reviewed by surgery, no acute findings, patient considered stable to be discharged home. UA unremarkable. Mild gap due to starvation ketosis, do not suspect DKA, patient received IV hydration to rehydrate. Patient currently tolerating PO at this time. Will discharge home with ondansetron, and compazine to manage nausea. Time: 11:53 Medications Administered Discontinued Medications Generic Name Dose Route Start Last Admin Trade Name Freq PRN Reason Stop Dose Admin Diazepam 2.5 mg 02/08/25 10:05 02/08/25 10:10 Diazepam 10 Mg/2 Ml Cartridge IVPUSH 02/08/25 10:06 2.5 mg STAT STA Administration Diphenhydramine HCl 25 mg 02/08/25 07:52 02/08/25 08:33 Diphenhydramine Hcl 50 Mg/Ml Vial IVPUSH 02/08/25 07:53 25 mg ONCE ONE Administration Lactated Ringer's 1,000 mls @ 999 mls/hr 02/08/25 07:52 02/08/25 10:04 Lr IV 02/08/25 08:52 Infused .Q1H1M ONE Infusion Metoclopramide HCl 10 mg 02/08/25 07:52 02/08/25 08:33 Metoclopramide Hcl 10 Mg/2 Ml Vial IVPUSH 02/08/25 07:53 10 mg ONCE ONE Administration Morphine Sulfate 4 mg 02/08/25 08:42 02/08/25 08:47 Morphine Sulfate 4 Mg/Ml Cartridge IVPUSH 02/08/25 08:43 4 mg ONCE ONE Administration Protocol Medical Decision Making Medical Decision Making [facility] Narrative: 60 year old male with PMHx of intractable nausea and vomiting, S/P gastric sleeve (Dr. Jemal Rivera 2020), hernia repair, presents to the ED with abdominal pain, nausea and multiple episodes of non bloody/ non bilious vomiting. Patients vital signs reveal elevated BP of 168/80 otherwise stable. In mild distress due to abdominal pain and nausea, non-toxic appearing. Will obtain labs, including lipase, UA, and CT abdomen pelvis to observe for acute abdomen/SBO cannot tolerate oral contrast at this time. Currently awaiting results. Differential Diagnosis Differential Diagnoses: The differential diagnosis associated with the presentation includes SBO, pancreatitis, cyclical vomiting, gastritis, diverticular disease Admission/Observation Consideration of admission/observation: Escalation of care including admission/observation considered Consult Healthcare Provider Management of the patient was discussed with: Sorting Liv[employer] Worker Dr. Suarez prior swirling Lab Data [facility] Lab Attestation statement: I reviewed the patient's lab results. show slight starvation ketosis - will hydrate 02/08/25 08:05 02/08/25 08:05 Labs: Lab Results 02/08/25 02/08/25 Range/Units 08:05 10:03 WBC 12.5 H (4.8-10.8) X10*3/uL RBC 5.61 (4.60-5.80) X10*6/uL Hgb 16.0 (14.0-18.0) g/dl Hct 44.7 (42.0-52.0) % MCV 79.7 L (80.0-98.0) fL MCH 28.5 (27.0-33.0) pg MCHC 35.8 (31.0-36.0) g/dl RDW 13.2 (11.0-16.0) % Plt Count 274 (160-400) X10*3/uL MPV 9.3 L (9.4-12.4) fL Immature Gran % (Auto) 0.3 (0.0-0.4) % Neut % (Auto) 84.6 H (45-73) % Lymph % (Auto) 9.1 L (20-40) % Reeves % (Auto) 5.2 (2-11) % Eos % (Auto) 0.2 (0-4) % Baso % (Auto) 0.6 (0-2) % Lymph # (Auto) 1.1 L (1.2-4.9) X10*3/uL Reeves # (Auto) 0.7 (0.1-1.2) X10*3/uL Eos # (Auto) 0.0 (0.0-0.4) X10*3/uL Baso # (Auto) 0.1 (0.0-0.2) X10*3/uL Abs Immat Gran (auto) 0.04 H (0.00-0.03) X10*3/uL Absolute Neuts (auto) 10.6 H (2.0-8.3) x10*3/uL Absolute Nucleated RBC 0.000 (0.0-0.012) X10*3/uL Nucleated RBC % (auto) 0.0 (0.0-0.2) /100WBC Sodium 140 (135-145) mmol/L Potassium 3.9 (3.3-5.1) mmol/L Chloride 105 (96-108) mmol/L Carbon Dioxide 18 L (22-29) mmol/L Anion Gap 21 H (12-20) BUN 12 (9-16) mg/dL Creatinine 0.83 (0.5-1.4) mg/dL Estim Creat Clear Calc 136.8 Estimated GFR > 60 Random Glucose 181 H (60-115) mg/dL Calcium 10.3 H (8.4-10.2) mg/dL Total Bilirubin 1.0 (0.0-1.0) mg/dL AST 37 (5-37) U/L ALT 20 (0-40) U/L Alkaline Phosphatase 142 H (39-117) U/L Total Protein 7.7 (6.5-8.0) g/dL Albumin 5.0 (3.5-5.0) g/dL Lipase 16 (8-78) U/L Urine Color Yellow Urine Appearance Clear Urine pH >= 9.0 (5.0-9.0) Ur Specific [place] >= 1.030 H (1.005-1.025) Urine Protein 30 (1+) H (Neg-Trace) mg/dL Urine Glucose (UA) 100 H (Negative) mg/dL Urine Ketones 80 (Negative) mg/dL Urine Blood Trace H (Negative) Urine Nitrite Negative (Negative) Ur Leukocyte Esterase Trace H (Negative) Urine RBC 11-20 H (0-2) /HPF Urine WBC 0-5 (0-5) /HPF Ur Squamous Epith Cells 0-2 (0-2) /HPF Urine Bacteria None Seen (None Seen) Hyaline Casts 0-2 (0-2) /LPF Urine Opiates Screen POSITIVE H (Not Detect) Ur Buprenorphine Scrn Not Detected (Not Detect) ng/mL Ur Oxycodone Screen Not Detected (Not Detect) ng/mL Urine Methadone Screen Not Detected (Not Detect) ng/mL Urine Fentanyl Screen Not Detected (Not Detect) Ur Barbiturates Screen Not Detected (Not Detect) Ur Phencyclidine Scrn Not Detected (Not Detect) Ur Amphetamines Screen Not Detected (Not Detect) U Benzodiazepines Scrn Not Detected (Not Detect) Urine Cocaine Screen Not Detected (Not Detect) U Marijuana (THC) Screen POSITIVE H (Not Detect) Independent Interpretation I performed an independent interpretation of an: EKG and CT Scan Interpretation: Rate: 76 Rhythm: NSR [place]: normal Normal P waves. Normal AMOS. Normal QRS complex. ST T wave : flat t waves V1 and V2, no KACEY qTC: 490 prior studies: no acute ischemia The study has been interpreted contemporaneously by me. . CT abdomen/pelvis CT ABDOMEN AND PELVIS WITHOUT CONTRAST CLINICAL INFORMATION: Nausea and vomiting. Status post Gastric sleeve. COMPARISON: May 09, 2024. TECHNIQUE: Multidetector volumetric imaging was performed from the superior aspect of the liver through the pubic symphysis. Sagittal and coronal reformatted images were obtained on the technologist's workstation. This CT examination was performed using dose optimization techniques as appropriate, variously including the following: *Automated exposure control *Adjustment of mA and/or kV according to patient size (this includes techniques or standardized protocols for targeted exams where dose is matched to indication/reason for exam; i.e. extremities or head) *Use of iterative reconstruction technique DLP: 918 mg centimeter FINDINGS: Limited evaluation of the intra-abdominal organs and vascular structures due to lack of IV contrast. LUNG BASES: No acute airspace disease. LIVER, GALLBLADDER, AND BILIARY TREE: Liver measures 16 cm. No intrahepatic biliary ductal dilatation. No pericholecystic fluid collection or gallbladder wall thickening. No extrahepatic biliary ductal dilatation. PANCREAS: No peripancreatic fluid collection. No main pancreatic ductal dilatation. SPLEEN: 7 cm. ADRENAL GLANDS: No nodular lesions. KIDNEYS AND URETERS: No hydronephrosis. No nephrolithiasis. BLADDER: Fluid-filled nearly collapsed. GASTROINTESTINAL TRACT: Sutures at the left lateral wall of the stomach. Small hiatal hernia. Gas-filled diverticulum, second portion of the duodenum. Numerous diverticula throughout the left hemicolon. Status post appendectomy. No intestinal obstruction pattern. There is swirling of the mesenteric vessels in the right hemiabdomen/peritoneal cavity. No ascites. No pneumoperitoneum. No pneumatosis intestinalis. No gross intestinal wall thickening. ABDOMINAL WALL: Small fat-containing umbilical hernia and diastases abdominal rectus muscles. LYMPH NODES: No specific prominent in the mesentery. VASCULAR: No aneurysm, abdominal aorta. PELVIC VISCERA: Inadequate evaluation. OSSEOUS STRUCTURES: Multilevel thoracolumbar spondylosis resulting in grade 1 retrolisthesis L2-3 and to a lesser extent L3-4 and L1-2 levels. Dextroconvex curvature apex at L1-2. Sclerosis and the sacroiliac joints. No acute fracture or dislocation, either hip. Bony pelvis is intact. CT/CT abdomen pelvis wo IV con IMPRESSION: No intestinal obstruction pattern. An internal hernia right hemiabdomen cannot be excluded. Diverticular disease, left hemicolon. Diverticulum, second portion of duodenum. Small fat-containing umbilical hernia and diastases abdominal rectus muscles. Fleischner guidelines were followed. Electronically signed by: Matty Frey MD 02/08/2025 09:31 AM Radiology Impression Discussion of test interpretation with radiology: I have reviewed the radiologist's reading. External Record Review External record reviewed: Inpatient record and Outpatient record Prescription Management I considered prescription management with: Other Chronic Conditions Patient?s care impacted by: Hypertension and Other (history of gastric sleeve, hernia repair surgery) Discharge Plan Discharge Clinical Impression: Abdominal pain, Nausea & vomiting Patient Disposition: Home, Self-Care Instructions: Acute Nausea and Vomiting (ED), Abdominal Pain (ED) Additional Instructions: You were evaluated in the ED today due to abdominal pain, nausea and vomiting. Your lab work was normal. Your EKG was normal. Your imaging of your abdomen and pelvis revealed a hernia of your right abdomen. Surgery team reviewed your CT and determined this is something you can follow up with your PCP for. You will be prescribed a medication called Zofran and compazine for you to use to manage your nausea. Drink plenty of fluids to stay hydrated. Please refrain from using marijuana for 4 weeks as this can cause nausea and vomiting. Follow up with your PCP to ensure your improvement. Please return to the ED if you experience fever above 100.4, bloody vomiting, black or bloody stool, inability to pass gas or move bowels. Or any other new symptoms or concerns. Prescriptions: New ondansetron 4 mg tablet,disintegrating 4 mg PO Q8H PRN (Reason: nausea and vomiting) Qty: 20 0RF prochlorperazine maleate [Compazine] 5 mg tablet 5 mg PO BID PRN (Reason: nausea and vomiting) Qty: 20 0RF No Action (DME) walker [facility] – [place], [place] See Rx Instructions .ROUTE .MEDSUPPLY Qty: 1 0RF Rx Instructions: Folding front wheeled walker atorvastatin 20 mg tablet 1 tab PO BEDTIME latanoprost 0.005 % Drops 1 drp OPHTHALMIC (EYE) BEDTIME Rx Instructions: Instill 1 drop into each eye famotidine 20 mg Tablet 20 mg PO BID PRN (Reason: Heartburn) clotrimazole 1 % cream 1 appl topical DAILY hyoscyamine sulfate [Levsin] 0.125 mg tablet 0.25 mg PO QID PRN (Reason: cramping) Qty: 20 0RF lisinopril 10 mg tablet 10 mg PO BEDTIME amitriptyline 25 mg tablet 25 mg PO BEDTIME citalopram 40 mg tablet 40 mg PO BEDTIME Print Language: Hong [place]er
[2025-02-08 08:11] LABS: Basophils Absolute Auto 0.1 X10*3/uL (0.0-0.2); Basophils Percent Auto 0.6 % (0-2); Eosinophils Percent Auto 0.2 % (0-4); Hematocrit 44.7 % (42.0-52.0); Imm Gran Abs Auto 0.04 X10*3/uL (0.00-0.03); Imm Gran Pct Auto 0.3 % (0.0-0.4); Lymphocytes Absolute Auto 1.1 X10*3/uL (1.2-4.9); Lymphocytes Percent Auto 9.1 % (20-40); Mean Corpuscular HGB Conc 35.8 g/dl (31.0-36.0); Mean Corpuscular Hemoglobin 28.5 pg (27.0-33.0); Mean Corpuscular Volume 79.7 fL (80.0-98.0); Mean Platelet Volume 9.3 fL (9.4-12.4); Monocytes Absolute Auto 0.7 X10*3/uL (0.1-1.2); Monocytes Percent Auto 5.2 % (2-11); Neutrophils Absolute Auto 10.6 x10*3/uL (2.0-8.3); Neutrophils Percent Auto 84.6 % (45-73); Platelet Count 274 X10*3/uL (160-400); Red Blood Count 5.61 X10*6/uL (4.60-5.80); Red Cell Distribution Width 13.2 % (11.0-16.0); White Blood Count 12.5 X10*3/uL (4.8-10.8)
[2025-02-08 08:24] LABS: Lipase 16 U/L (8-78)
[2025-02-08] MEDS: Lactated Ringers 1,000 ML 999 ML IV (08:32)
[2025-02-08 08:33] LABS: Alanine Aminotransferase 20 U/L (0-40); Alkaline Phosphatase 142 U/L (39-117); Anion Gap 21 (12-20); Aspartate Amino Transferase 37 U/L (5-37); Blood Urea Nitrogen 12 mg/dL (9-16); Calcium 10.3 mg/dL (8.4-10.2); Carbon Dioxide 18 mmol/L (22-29); Chloride 105 mmol/L (96-108); Creatinine Clr Calc Pharmacy 136.8; Estimated Glomerular Filt Rate > 60; Glucose Random 181 mg/dL (60-115); Potassium 3.9 mmol/L (3.3-5.1); Sodium 140 mmol/L (135-145); Total Protein 7.7 g/dL (6.5-8.0)
[2025-02-08] MEDS: Metoclopramide HCl 10 MG/2 ML VIAL IVPUSH (08:33)
[2025-02-08] MEDS: diphenhydrAMINE HCL 50 MG/ML VIAL 25 MG IVPUSH (08:33)
--- NOTE | 2025-02-08 08:37 | PC.NURSE ---
Pt A&O X4 pled on full monitor. IVF infusing- meds administered. Pt c/o abd pain and nausea.
--- NOTE | 2025-02-08 08:42 | ECG_ITS ---
Test Reason : N/V Blood Pressure : */* mmHG Vent. Rate : 76 BPM Atrial Rate : 76 BPM P-R Int : 152 ms QRS Dur : 108 ms QT Int : 436 ms P-R-T Axes : 57 37 31 degrees QTcB Int : 490 ms Normal sinus rhythm Nonspecific ST abnormality Prolonged QT Abnormal ECG When compared with ECG of 10-Feb-2023 02:55, No significant change was found Referred By: Love Nixon Electronically Signed By: Skip Martinez
--- OUTSIDE RECORDS SUMMARY | 2025-02-08 08:42 | XMS_ITS | Clinical Summary ---
Author Organization [address] [facility] Address [address] [place] [address] Phone Care Team Providers Care Clin Application Specialist Name Role Phone Jason Jha Primary Care Provider [phone] Allergies Active Allergy Reactions Criticality Noted Date Comments Bee Venom Protein (Honey Bee) Anaphylaxis,Hives,Swelling High 01/15/2015 Medications predniSONE (DELTASONE) 20 mg tablet Take 3 tabs on the first 3 days, take 2 tabs on the next 3 days, take 1 tab on the next 3 days, then stop. 4 Active famotidine (PEPCID) 20 mg tablet TAKE 1 TABLET BY MOUTH 2 TIMES DAILY NEEDED FOR HEARTBURN. 4 Active busPIRone (BUSPAR) 10 mg tablet Take 1 tablet (10 mg total) by mouth 2 (two) times a day. 4 Active traZODone (DESYREL) 50 mg tablet TAKE 1 TO 3 TABLET BY MOUTH AT BEDTIME NEEDED FOR SLEEP 4 Active amoxicillin (AMOXIL) 500 mg capsule TAKE 4 CAPSULES BY MOUTH ONE HOUR BEFORE APPOINTMENT TIME 3 Active EPINEPHrine (EpiPen 2-Gustavo) 0.3 mg/0.3 mL injection Inject 0.3 mL as directed as needed (allergic reaction). 3 Active clotrimazole (LOTRIMIN) 1 % cream Apply to skin daily for 6 weeks 2 Active latanoprost (XALATAN) 0.005 % ophthalmic solution INSTILL 1 DROP INTO BOTH EYES AT BEDTIME 2 Active UNABLE TO FIND CPAP Historical (HISTORICAL CPAP), Inhale into the lungs. Life supply-pressure 14-20 Active atorvastatin (LIPITOR) 20 mg tablet TAKE 1 TABLET BY MOUTH EVERY DAY 90 tablet 3 5 Active citalopram (CeleXA) 40 mg tablet TAKE 1 TABLET BY MOUTH EVERY DAY 90 tablet 3 5 Active lisinopriL (PRINIVIL,ZESTRI L) 10 mg tabletIndication s:Mixed hyperlipidemia,E ssential (primary) hypertension TAKE 1 TABLET BY MOUTH EVERY DAY 90 tablet 3 5 Active amitriptyline (ELAVIL) 25 mg tablet TAKE 1 TABLET BY MOUTH EVERYDAY AT BEDTIME 90 tablet 1 5 Active Active Problems Problem Noted Date Diagnosed Date Abdominal pain 07/24/2024 Nausea and vomiting 07/24/2024 Class 3 severe obesity due t o excess calories with serious comorbidity and body mass index (BMI) of 40.0 to 44.9 in adult ([facility] V24, [facility] V28) 07/24/2024 Bilateral groin pain 10/16/2019 Inguinal adenopathy 10/16/2019 Type 2 diabetes mellitus wit hout complication, without long-term current use of insulin ([facility] V24, [facility] V28) 10/19/2018 Obstructive sleep apnea syndrome 01/02/2018 Chronic pain 08/22/2017 Impaired fasting blood sugar 08/16/2017 Ocular hypertension 11/03/2016 Osteoarthritis of both knees 02/12/2015 Overview (07/24/2024): Hx arthroscopy in the past Colon polyp 01/15/2015 Orchalgia 03/08/2013 Varicocele 03/08/2013 Pelvic pain 06/27/2012 Overview (07/24/2024): Right-sided, Bravo Wong, Ryan - Luis SI joint Sensory motor neuropathy 03/04/2012 Overview (07/24/2024): Bilat LE's; PVSS Insomnia 12/09/2011 Overview (07/24/2024): Trazodone not helpful in past Depression 10/15/2011 Essential hypertension 10/15/2011 Mixed hyperlipidemia 10/15/2011 Immunizations Name Administration Dates Next Due Influenza Quadravalent, MDCK , 0.5ml, preservative free (Flucelvax) 6mo and older 06/20/2024,12/16/2023,11/20/2021,10/18,08/28/2018 Influenza Quadravalent, MDCK , 0.5ml, with preservative (Flucelvax) 6mo and older 08/16/2017 Influenza trivalent, 0.5mL, preservative free (Fluarix; FluLaval; Fluzone) ages 6mo and older (Afluria) 3 years and older 08/27/2022,08/10/2016,07/22/2015,07/09,09/12/2013,06/13/2012 Pneumococcal polysaccharide 23 valent (Pneumovax 23) 2yo and older 01/09/2019 Td Tetanus diptheria (Tdvax) 7yo and older 04/20/2023 Tdap Tetanus diptheria acell ular pertussis (Boostrix; Adacel) 7yo and older 03/13/2013 Zoster recombinant (Shingrix ) 19yo and older 08/27/2022 Surgical History Surgery Date Site/Laterality Comments OTHER SURGICAL HISTORY PROCEDURE: HISTORY OTHER; COMMENT: l4 l5 disc surgery 2000in OTHER SURGICAL HISTORY PROCEDURE: HISTORY OTHER; COMMENT: rt inguinal hernia repair 2001 APPENDECTOMY PROCEDURE: MI APPENDECTOMY OTHER SURGICAL HISTORY PROCEDURE: HISTORY OTHER; COMMENT: bilat foot surgrry for plantar fasciitis 2004 OTHER SURGICAL HISTORY PROCEDURE: HISTORY OTHER; COMMENT: hx of bilat arthroscopic knee surgery COLONOSCOPY PROCEDURE: HISTORICAL COLONOSCOPY; COMMENT: 2014 [facility] polyp f/u per [facility] OTHER SURGICAL HISTORY PROCEDURE: HISTORY OTHER; COMMENT: rt 4th finger trigger fngr surg OTHER SURGICAL HISTORY 05/04/2018 Left PROCEDURE: MI ENDOSCOPIC PLANTAR FASCIOTOMY; COMMENT: open plantar fasciotomy OTHER SURGICAL HISTORY 11/02/2018 Right PROCEDURE: MI ENDOSCOPIC PLANTAR FASCIOTOMY; COMMENT: open plantar fasciotomy OTHER SURGICAL HISTORY 05/31/2019 Right PROCEDURE: MI DECOMPRESSION PLANTAR DIGITAL NERVE; COMMENT: excision of scar tissue and forman's nerve release right foot TOTAL KNEE ARTHROPLASTY 06/04/2021 Bilateral PROCEDURE: MI ARTHRP KNE CONDYLE&PLATU MEDIAL&LAT COMPARTMENTS; COMMENT: dr. xie OTHER SURGICAL HISTORY 01/15/2022 PROCEDURE: UPPER GI ENDOSCOPY, REMOVE LESION; COMMENT: muslu - normal esophagus, duodenum FOOT SURGERY 02/18/2023 PROCEDURE: HISTORICAL FOOT SURGERY; COMMENT: dr. beth peacock, metatarsal surgery Medical History Medical History Date Comments Unspecified essential hypertension 10/15/2011 DX:Unspecified essential hypertension Depression 10/15/2011 DX:Depression Sleep apnea 10/15/2011 DX:Sleep apnea Insomnia 12/09/2011 DX:Insomnia S/P appendectomy 12/09/2011 DX:S/P appendec wayne S/P diskectomy 12/09/2011 DX:S/P diskectom y; COMMENT: L4-L5 Bilateral inguinal hernia 06/06/2013 DX:Abhi ateral inguinal hernia Personal history of colonic polyps 11/12/2014 DX:Personal history of colonic polyps Colon polyp 01/15/2015 DX:Colon polyp Osteoarthritis of both knees 02/12/2015 DX: Osteoarthritis of both knees; COMMENT: Hx arthroscopy in the past Type 2 diabetes mellitus wit hout complication, without long-term current use of insulin ([facility] V24, [facility] V28) 10/19/2018 DX:Type 2 diabetes mellitus without complication, without long-term current use of insulin ([facility]) Abdominal pain DX:Abdominal rozina n Nausea and vomiting DX:Nausea an d vomiting Status post gastric surgery DX:S tatus post gastric surgery Hyperlipidemia DX:Hyperlipidemi a Family History Medical History Relation Name Comments No Known Problems Aunt Arthritis Brother Colon polyps Brother Glaucoma Brother Other: PVD Brother Arthritis Father CABG Father x3 Cataracts Father Other: valvular heart disease Father Prostate cancer Father No Known Problems Maternal Grandfather No Known Problems Maternal Grandmother Arthritis Mother Glaucoma Mother Other: failure to thrive Mother No Known Problems Other No Known Problems Paternal Grandfather No Known Problems Paternal Grandmother No Known Problems Sister No Known Problems Uncle Blindness Neg Hx Macular degeneration Neg Hx Strabismus Neg Hx Relation Name Status Comments Aunt Brother Alive colonic polyps Father Alive memory issues p rostate cancer radiation Maternal Grandfather Maternal Grandmother Mother back and neck p roblem Other Paternal Grandfather Paternal Grandmother Sister Uncle Social History Tobacco Use Types Packs/Day Years Used Date Smoking Tobacco: Former Cigarettes Q uit: 10/10/2005 Smokeless Tobacco: Never Tobacco Cessation:Counseling Given: Not Answered Alcohol Use Standard Drinks/Week Comments No 0 (1 standard drink = 0.6 oz pur e alcohol) Sex and Gender Information Value Date Recorded Sex Assigned at Not on file Legal Sex Male 4:17 PM EST Gender Identity Not on file Sexual Orientation Not on file Obstetrics History Last Filed Vital Signs Vital Sign Reading Time Taken Comments Blood Pressure 124/80 09/05/2024 9:28 AM EST Pulse 68 09/05/2024 9:28 AM EST Temperature 36.3 ??C (97.4 ??F) 09/05/2024 9:28 AM ES T Respiratory Rate 16 09/05/2024 9:28 AM EST Oxygen Saturation 97% 09/05/2024 9:28 AM EST Inhaled Oxygen Concentration - - Weight 140 kg (309 lb 3.2 oz) 09/05/2024 9:28 AM EST Height 190.5 cm (6' 3 ) 09/05/2024 9:28 AM EST Body Mass Index 38.65 09/05/2024 9:28 AM EST Plan of Treatment Upcoming Encounters Date Type Department Care Team (Late st Contact Info) Description 09/06/2025 9:45 AM EST Office Visit Pulmonolgy - Victor [address] [place] [address] Indigo Rubio NP [address] [place] [address] Health Maintenance Due Date Last Done Comments Pneumococcal Vaccine: 50+ Years (2 of 2 - PCV) 01/10/2020 01/09/2019 Pneumococcal Vaccine: Pediatrics (0 to 5 Years) and At-Risk Patients (6 to 64 Years) (2 of 2 - PCV) 01/10/2020 01/09/2019 HIV Screening 09/18/2022 Social Influencers of Health Screening 09/18/2022 Zoster Vaccines (2 of 2) 10/22/2022 08/27/2022 RSV Immunization Adult Patients (1 - Risk 60-74 years 1-dose series) 2024 COVID-19 Vaccine ( - season) 2024 Diabetes: Annual Retina Eye Exam 08/01/2024 08/01/2023 Diabetes: Blood Sugar Control Test (HGBA1C) 09/08/2024 03/08/2024, 03/08/2024 Diabetes: Annual Urine Albumin-Creatinine Ratio (uACR) 03/08/2025 03/08/2024 Diabetes: Annual GFR (Glomerular Filtration Rate) 03/08/2025 03/08/2024, 03/08/2024 Hypertension/CHF/CAD Annual BMP Blood Test 03/08/2025 03/08/2024, 03/08/2024 Depression Screening 06/20/2025 06/20/2024 Diabetes: Annual Foot Exam 06/20/2025 06/20/2024 Colorectal Cancer Screening: Colonoscopy 07/07/2025 07/07/2020 Cholesterol Screening (Lipid Panel) 03/08/2029 03/08/2024, 03/08/2024 DTaP,Tdap,and Td Vaccines (3 - Td or Tdap) 04/20/2033 04/20/2023, 03/13/2013 Hepatitis C Screening Completed 06/11/2014 Influenza Vaccine Completed 06/20/2024, , 08/27/2022, Additional history exists HIB Vaccines Aged Out No longer eligi ble based on patient's age to complete this topic HPV Vaccines Aged Out No longer eligi ble based on patient's age to complete this topic Hepatitis A Vaccines Aged Out No long er eligible based on patient's age to complete this topic Hepatitis B Vaccines Aged Out No long er eligible based on patient's age to complete this topic IPV Vaccines Aged Out No longer eligi ble based on patient's age to complete this topic MMR Vaccines Aged Out No longer eligi ble based on patient's age to complete this topic Meningococcal ACWY Vaccine Aged Out N o longer eligible based on patient's age to complete this topic Meningococcal B Vaccine Aged Out No l onger eligible based on patient's age to complete this topic RSV Immunization Patients Under 20 months Aged Out No longer eligible based on patient's age to complete this topic Varicella Vaccines Aged Out No longer eligible based on patient's age to complete this topic Procedures Procedure Name Priority Date/Time Associated Diagnosis Comments DEPRESSION SCREENING Routine 06/20/2024 DIABETES FOOT EXAM Routine 06/20/2024 URINE ALBUMIN CREATININE RATIO Routine 03/08/2024 ANNUAL BMP BLOOD TEST Routine 03/08/2024 HEMOGLOBIN A1C Routine 03/08/2024 LIPID PANEL Routine 03/08/2024 DIABETES EYE EXAM Routine 08/01/2023 COLONOSCOPY Routine 07/07/2020 HEPATITIS C SCREENING Routine 06/11/2014 from Last 3 Months or Most Recently Relevant to Health Maintenance Results * Depression Screening (06/20/2024) [facility] Depression Screening abstracted Result [facility] Provider HEALTH MAINTENANCE Final Result * Diabetes Foot Exam (06/20/2024) [facility] Diabetes: Annual Foot Exam abstracted Result [facility] Provider HEALTH MAINTENANCE Final Result * Urine Albumin Creatinine Ratio (03/08/2024) [facility] Urine Albumin Creatinine Ratio abstracted Result [facility] Provider HEALTH MAINTENANCE Final Result * Annual BMP Blood Test (03/08/2024) [facility] Annual BMP Blood Test abstracted Result [facility] Provider HEALTH MAINTENANCE Final Result * Hemoglobin A1c (03/08/2024) [facility] Hemoglobin A1C 5.4 <=6.5 % Blood Venous blood specimen / Unknown [facility] Provider LAB BLOOD ORDERABLES [facility] l Result * (ABNORMAL) Lipid panel (03/08/2024) [facility] LDL/HDL Ratio 4 0 - 4 Triglycerides 113 0 - 150 mg/dL Cholesterol 134 0 - 200 mg/dL HDL 37(A) >=40 mg/dL LDL Cholesterol 75 0 - 100 mg/dL Blood Venous blood specimen / Unknown Historical Provider LAB BLOOD ORDERABLES [facility] l Result * Diabetes Eye Exam (08/01/2023) Pathologist [facility] Diabetes: Annual Retina Eye Exam abstracted Historical Provider HEALTH MAINTENANCE Final Result * Colonoscopy (07/07/2020) [facility] Colonoscopy abstracted, no interpretation Anatomical Region Laterality Modality Other Historical Provider HEALTH MAINTENANCE Final Result * Hepatitis C Screening (06/11/2014) [facility] Hepatitis C Screening abstracted [facility] Provider HEALTH MAINTENANCE Final Result from Last 3 Months or Most Recently Relevant to Health Maintenance Insurance [facility] [employer] Care Teams Clin Application Specialist Relationship Specialty Start Date End Date Jason Jha PA [address] [place] [phone] PCP - General Internal Medicine 09/05/24
[2025-02-08 08:44] VITALS: BP 141/72; PULSE 79; RESP 21; O2SAT 99
[2025-02-08] MEDS: Morphine Sulfate 4 MG/ML CARTRIDGE IVPUSH (08:47)
--- NOTE | 2025-02-08 09:00 | PC.NURSE ---
Pt to imaging- pain improving- still nauseus.
[2025-02-08 10:08] VITALS: BP 164/82; PULSE 71; RESP 16; TEMP 36.6; O2SAT 99
[2025-02-08 10:10] LABS: Appearance Urine Clear; Color Urine Yellow; Glucose Urine UA 100 mg/dL (Negative); Leukocyte Esterase Urine Trace (Negative); Nitrite Urine Negative (Negative); PH >= 9.0 (5.0-9.0); Specific Gravity - Urine >= 1.030 (1.005-1.025); UMIC TRIGGER UACC YES; Urine Blood Trace (Negative); Urine Ketones 80 mg/dL (Negative); Urine Protein 30 (1+) mg/dL (Neg-Trace)
[2025-02-08] MEDS: diazePAM 10 MG/2 ML CARTRIDGE 2.5 MG IVPUSH (10:10)
[2025-02-08 10:13] LABS: Bacteria Urine None Seen (None Seen); Hyaline Casts Urine 0-2 /LPF (0-2); Squamous Epithelial Cell Urine 0-2 /HPF (0-2); WBC Urine 0-5 /HPF (0-5)
[2025-02-08 10:20] LABS: Amphetamine Screen Urine Not Detected (Not Detect); Barbiturates, Urine Not Detected (Not Detect); Benzodiazepines Screen Urine Not Detected (Not Detect); Buprenorphine Scr Not Detected (Not Detect); Cannabinoid Screen Urine POSITIVE (Not Detect); Cocaine Screen Urine Not Detected (Not Detect); Fentanyl, urine Not Detected (Not Detect); Methadone Screen, Urine Not Detected (Not Detect); Opiate Screen Urine POSITIVE (Not Detect); Oxycodone Screen Urine Not Detected (Not Detect); Phencyclidine Screen Urine Not Detected (Not Detect)
[2025-02-08 12:26] VITALS: BP 164/82; PULSE 71; RESP 16; TEMP 36.6; O2SAT 99
== END 2025-02-08 12:27 | disposition home or self-care (01) ==
PROVIDERS: Emergency Provider Emergency Medicine; PCP Physician Assistant Medical
DX: R11.2 Nausea with vomiting, unspecified (principal); R10.9 Unspecified abdominal pain; I10 Essential (primary) hypertension; E11.9 Type 2 diabetes mellitus without complications; Z79.899 Other long term (current) drug therapy
CPT/HCPCS: 36415; 74176; 80053; 80307; 81001; 83690; 85025; 93005; 96361; 96374; 96375; 99285; J1200; J2270; J2765; J3360; J7120

== ENCOUNTER → 2025-02-08 08:08 | Outpatient (BNV) | payer OTHER, SELFPAY | PROVIDERS: Emergency Provider Emergency Medicine; PCP Physician Assistant Medical; Visit Provider Radiology Diagnostic Radiology | DX: R11.2 Nausea with vomiting, unspecified (principal); Z90.3 Acquired absence of stomach [part of]; Z98.84 Bariatric surgery status | CPT/HCPCS: 74176 ==

== ENCOUNTER → 2025-02-08 08:42 | Outpatient (BNV) | payer OTHER, SELFPAY | PROVIDERS: Emergency Provider Emergency Medicine; PCP Physician Assistant Medical; Visit Provider Internal Medicine Cardiovascular Disease | DX: R94.31 Abnormal electrocardiogram [ECG] [EKG] (principal); R11.2 Nausea with vomiting, unspecified | CPT/HCPCS: 93010 ==

== ENCOUNTER 2025-02-09 11:52 | Observation (INO) | payer OTHER, SELFPAY ==
[2025-02-09 11:54] VITALS: BP 149/77; PULSE 71; RESP 24; TEMP 36.2; O2SAT 98; BMI 37.6
--- NOTE | 2025-02-09 11:56 | ED_ITS ---
HPI - Abdominal Pain General Chief Complaint: Abdominal Pain Stated Complaint: abdominal pain Time Seen by Provider: 02/09/25 13:08 Source: patient, RN notes reviewed and old records reviewed History of Present Illness ED Provider: Mary Griffin PA-C HPI narrative: 60-year-old male with a past medical history of chronic pain syndrome, HTN, HLD, sleep apnea, diabetes, presenting to the ED complaining of diffuse abdominal cramping, nausea, vomiting, dry heaving x few days. Patient admits he was seen and treated in the ED as per similar symptoms, reports taking prescribed medications without relief. She is unable to tolerate p.o.. Denies fever, chills, dysuria/hematuria. Last marijuana use 4 days ago. Denies other illicit substances or EtOH. Related Data Home Medications ?Medication ?Instructions ?Recorded ?Confirmed amitriptyline 25 mg tablet 25 mg PO BEDTIME 11/18/20 02/09/25 citalopram 40 mg tablet 40 mg PO BEDTIME 11/18/20 02/09/25 lisinopril 10 mg tablet 10 mg PO BEDTIME 11/18/20 02/09/25 atorvastatin 20 mg tablet 1 tab PO BEDTIME 02/16/21 02/09/25 famotidine 20 mg tablet 20 mg PO BID PRN Heartburn 02/12/23 02/09/25 latanoprost 0.005 % eye drops 1 drp ophthalmic (eye) BEDTIME 02/12/23 02/09/25 trazodone 50 mg tablet 50 mg PO BEDTIME PRN insomnia 02/09/25 02/09/25 Previous Rx's ?Medication ?Instructions ?Recorded walker #1 ea 02/18/21 Allergies Allergy/AdvReac Type Severity Reaction Status Date / Time bee pollen [BEE STINGS] Allergy Severe ANAPHYLACTIC Verified 02/09/25 11:58 SHOCK- CARRIES EPI PEN Review of Systems Review of Systems Yes all other systems are reviewed and are negative Constitutional: Reports as per HPI [facility] Past Medical History Attestation statement: The following information was validated with the patient. Source: old records reviewed Medical History Chronic pain syndrome HTN (hypertension) Elevated cholesterol Primary osteoarthritis of right knee Sleep apnea Type 2 diabetes mellitus Surgical History History of total left knee replacement (TKR) Hx of appendectomy Hx of foot surgery Hx of hand surgery Hx of right inguinal hernia repair Hx of foot surgery Hx of lumbar discectomy H/O colonoscopy Hx of arthroscopic knee surgery H/O bariatric surgery Family History Family History Mother Parkinson disease Social History Social History Household Members: Family Housing: House Are you a primary wound care technician to a significant other at home: No Do you presently have visiting nurse or other home services: No Alcohol intake: current Alcohol intake frequency: does not drink Patient Tobacco Use Status: Former Tobacco user Tobacco use type: Cigarette Years Smoked: 15 Smoked in Last 30 Days: No Use of substances other than those prescribed or required for medical reasons: Yes Substance Use Type: Marijuana Substance Use Frequency: Occasionally Advance Directives: No Advance Directives Information Provided: No service: No Current occupational status: unemployed Current occupation: Right Handed Physical Exam ED Vital Signs: Vital Signs - 24 hr 02/09/25 11:54 02/09/25 13:51 Temperature 97.1 F 98.3 F Pulse Rate 71 65 Respiratory Rate 24 H 18 Blood Pressure 149/77 H 144/76 H Pulse Oximetry 98 94 Oxygen Delivery Method Room Air Room Air BMI result Body Mass Index 37.6 Const General: cooperative, healthy appearing and no acute distress Orientation/consciousness: patient oriented x3 Limitations: no limitations HENMT Head: Yes normal to inspection and Yes atraumatic Ears: hearing grossly normal bilaterally General nose exam: Normal external nose present Face and sinus: Yes normal facial exam Eyes General: appearance normal, both eyes and all related structures EOM: EOMs intact bilaterally Neck Neck: Yes normal visual inspection and Yes no meningeal signs Resp Effort & Inspection: normal respiratory effort and no respiratory distress Cardio Rate: regular rate GI Inspection: Yes normal to inspection Palpation (GI): Soft to palpation, nontender, no guarding and not rigid General: Yes no CVA tenderness Back/Spine/Pelvis Back: no CVA tenderness Skin Rashes: no rashes Wounds: no wounds Neuro General: patient oriented x3, tone normal and no meningeal signs Cranial nerves: Yes CN's II-XII intact bilaterally Gait exam (Neuro): Normal gait present Extrem General: Yes normal to inspection Course Course Course Narrative: This is an RME performed by Cameron Yeung CNP: Additional HPI, ROS, PE not included below will be deferred to primary provider. Patient is a 60-year-old male who presents emergency department for evaluation of diffuse abdominal particularly worse in the lower abdomen described as severe cramping. Started a few days ago. Associated nausea, vomiting but denies diarrhea. Was seen in the emergency department yesterday for similar symptoms, was discharged with Zofran as well as Compazine, states that he has trialed these but continues to have nausea and vomiting without any relief. Plan: Serum labs, urinalysis, viral serologies -1502--leukocytosis of 14.3 > likely reactive from nausea/vomiting and dry heaving. Low suspicion for severe sepsis -BUN 17. ALT elevated to 104. Lipase elevated to 93. Beta hydroxybutyrate mildly elevated > no anion gap, low suspicion for acute DKA -viral testing negative -patient without symptomatic relief after IV Benadryl, Reglan, and Zofran. Will try droperidol >1630--on re-evaluation patient is still writhing around, unable to tolerate p.o.. Plan to admit for further management Medical Decision Making Medical Decision Making [facility] Narrative: 60-year-old male with a past medical history of chronic pain syndrome, HTN, HLD, sleep apnea, diabetes, presenting to the ED complaining of diffuse abdominal cramping, nausea, vomiting, dry heaving x few days. On exam vital signs stable, NAD, nontoxic appearing, abdomen is soft, nontender, no rebound or guarding. Concern for gastroenteritis/colitis vs cyclical vomiting vs gastritis. Lower suspicion for SBO, acute diverticulitis or appendicitis without tenderness on exam. Patient had CT in our ED yesterday without acute/surgical findings. Surgery was consulted at that time Plan: Repeat labs, UA, IVF, symptomatic remedies, with p.o. trial, re-evaluate Please refer to course for remaining clinical decision making, interpretation of labs/imaging results, and discussions with consultants and/or family members. Differential Diagnosis Differential Diagnoses: The differential diagnosis associated with the presentation includes As above Admission/Observation Consideration of admission/observation: Escalation of care including admission/observation considered Lab Data [facility] Lab Attestation statement: I reviewed the patient's lab results. 02/09/25 12:17 02/09/25 12:17 Labs: Lab Results 02/09/25 02/09/25 02/09/25 Range/Units 12:17 12:27 15:23 WBC 14.3 H (4.8-10.8) X10*3/uL RBC 5.79 (4.60-5.80) X10*6/uL Hgb 17.1 (14.0-18.0) g/dl Hct 46.6 (42.0-52.0) % MCV 80.5 (80.0-98.0) fL MCH 29.5 (27.0-33.0) pg MCHC 36.7 H (31.0-36.0) g/dl RDW 13.6 (11.0-16.0) % Plt Count 308 (160-400) X10*3/uL MPV 9.4 (9.4-12.4) fL Immature Gran % (Auto) 0.5 H (0.0-0.4) % Neut % (Auto) 83.2 H (45-73) % Lymph % (Auto) 9.2 L (20-40) % [place] % (Auto) 6.4 (2-11) % Eos % (Auto) 0.1 (0-4) % Baso % (Auto) 0.6 (0-2) % Lymph # (Auto) 1.3 (1.2-4.9) X10*3/uL [place] # (Auto) 0.9 (0.1-1.2) X10*3/uL Eos # (Auto) 0.0 (0.0-0.4) X10*3/uL Baso # (Auto) 0.1 (0.0-0.2) X10*3/uL Abs Immat Gran (auto) 0.07 H (0.00-0.03) X10*3/uL Absolute Neuts (auto) 11.9 H (2.0-8.3) x10*3/uL Absolute Nucleated RBC 0.000 (0.0-0.012) X10*3/uL Nucleated RBC % (auto) 0.0 (0.0-0.2) /100WBC VBG pH 7.53 H (7.32-7.43) VBG pCO2 23 mmHg VBG pO2 67 mmHg VBG HCO3 19 L (22-26) mmol/L VBG O2 Saturation 96.0 % VBG Base Excess -0.3 mmol/L Sodium 140 (135-145) mmol/L Potassium 3.4 (3.3-5.1) mmol/L Chloride 106 (96-108) mmol/L Carbon Dioxide 19 L (22-29) mmol/L Anion Gap 18 (12-20) BUN 17 H (9-16) mg/dL Creatinine 0.90 (0.5-1.4) mg/dL Estim Creat Clear Calc 124.8 Estimated GFR > 60 Random Glucose 143 H (60-115) mg/dL Calcium 9.9 (8.4-10.2) mg/dL Magnesium 1.8 (1.6-2.6) mg/dL Total Bilirubin 1.1 H (0.0-1.0) mg/dL AST 104 H (5-37) U/L ALT 33 (0-40) U/L Alkaline Phosphatase 129 H (39-117) U/L Total Protein 7.6 (6.5-8.0) g/dL Albumin 5.0 (3.5-5.0) g/dL Lipase 93 H (8-78) U/L Beta-Hydroxybutyrate 0.89 H (0.02-0.27) mmol/L Urine Color Dark Yellow Urine Appearance Clear Urine pH 5.5 (5.0-9.0) Ur Specific [place] >= 1.030 H (1.005-1.025) Urine Protein 100 (2+) H (Neg-Trace) mg/dL Urine Glucose (UA) Negative (Negative) mg/dL Urine Ketones 40 (Negative) mg/dL Urine Blood Moderate (2+) H (Negative) Urine Nitrite Negative (Negative) Ur Leukocyte Esterase Negative (Negative) Urine RBC 0-2 (0-2) /HPF Urine WBC 0-5 (0-5) /HPF Ur Squamous Epith Cells 0-2 (0-2) /HPF Urine Bacteria None Seen (None Seen) Hyaline Casts 3-5 (0-2) /LPF Urine Opiates Screen POSITIVE H (Not Detect) Ur Buprenorphine Scrn Not Detected (Not Detect) ng/mL Ur Oxycodone Screen Not Detected (Not Detect) ng/mL Urine Methadone Screen Not Detected (Not Detect) ng/mL Urine Fentanyl Screen Not Detected (Not Detect) Ur Barbiturates Screen Not Detected (Not Detect) Ur Phencyclidine Scrn Not Detected (Not Detect) Ur Amphetamines Screen Not Detected (Not Detect) U Benzodiazepines Scrn Not Detected (Not Detect) Urine Cocaine Screen Not Detected (Not Detect) U Marijuana (THC) Screen POSITIVE H (Not Detect) Influenza Type A (PCR) NEGATIVE (Negative) Influenza Type B (PCR) NEGATIVE (Negative) RSV RNA Qual (PCR) NEGATIVE (Negative) SARS-CoV-2 RNA (RT-PCR) NEGATIVE (Negative) Radiology Impression Discussion of test interpretation with radiology: I have reviewed the radiologist's reading. External Record Review External record reviewed: Inpatient record, Office record, Outpatient record, Prior outpatient labs, Prior outpatient radiology, Primary care record and Outside ED record Tests considered The following testing was considered but not selected: As above Prescription Management I considered prescription management with: Pain Medication and Other Chronic Conditions Patient?s care impacted by: Diabetes and Other Social Determinants Patient?s care significantly limited by Social Determinants of Health including: Other Social Determinant of Health Medications Administered Discontinued Medications Generic Name Dose Route Start Last Admin Trade Name Freq PRN Reason Stop Dose Admin Diphenhydramine HCl 50 mg 02/09/25 13:23 02/09/25 13:41 Diphenhydramine Hcl 50 Mg/Ml Vial IVPUSH 02/09/25 13:24 50 mg ONCE ONE Administration Droperidol 0.625 mg 02/09/25 15:42 02/09/25 15:54 Droperidol 5 Mg/2 Ml Vial IVPUSH 02/09/25 15:43 0.625 mg ONCE ONE Administration Lactated Ringer's 1,000 mls @ 999 mls/hr 02/09/25 13:30 02/09/25 14:54 Lr IV 02/09/25 14:30 Infused .Q1H1M BHARTI Infusion Lactated Ringer's 1,000 mls @ 999 mls/hr 02/09/25 15:15 02/09/25 15:25 Lr IV 02/09/25 16:15 999 mls/hr .Q1H1M BHARTI Administration Metoclopramide HCl 10 mg 02/09/25 13:23 02/09/25 13:41 Metoclopramide Hcl 10 Mg/2 Ml Vial IVPUSH 02/09/25 13:24 10 mg ONCE ONE Administration Ondansetron HCl 4 mg 02/09/25 14:57 02/09/25 15:25 Ondansetron Hcl 4 Mg/2 Ml Vial IVPUSH 02/09/25 14:58 4 mg ONCE ONE Administration Critical Care Time Critical Care Time Critical Care Time: Yes Total Critical Care Time: 35 Attestation: I have personally provided critical care time exclusive of time spent on separately billable procedures. Time includes review of lab data, radiology results, discussion with consultants, and monitoring for potential decompensation. Intervention performed as documented. Discharge Plan Discharge Clinical Impression: Intractable nausea and vomiting Abdominal pain Qualifiers: Abdominal location: generalized Qualified Code(s): R10.84 - Generalized abdominal pain Patient Disposition: Admitted As Inpatient
[2025-02-09 12:27] LABS: MANUAL DIFF FLAG NO
[2025-02-09 12:29] LABS: Venous Blood Gas Refer to POC result
[2025-02-09 12:30] LABS: Basophils Absolute Auto 0.1 X10*3/uL (0.0-0.2); Basophils Percent Auto 0.6 % (0-2); Eosinophils Percent Auto 0.1 % (0-4); Hematocrit 46.6 % (42.0-52.0); Hemoglobin 17.1 g/dl (14.0-18.0); Imm Gran Abs Auto 0.07 X10*3/uL (0.00-0.03); Imm Gran Pct Auto 0.5 % (0.0-0.4); Lymphocytes Absolute Auto 1.3 X10*3/uL (1.2-4.9); Lymphocytes Percent Auto 9.2 % (20-40); Mean Corpuscular HGB Conc 36.7 g/dl (31.0-36.0); Mean Corpuscular Hemoglobin 29.5 pg (27.0-33.0); Mean Corpuscular Volume 80.5 fL (80.0-98.0); Mean Platelet Volume 9.4 fL (9.4-12.4); Monocytes Absolute Auto 0.9 X10*3/uL (0.1-1.2); Monocytes Percent Auto 6.4 % (2-11); Neutrophils Absolute Auto 11.9 x10*3/uL (2.0-8.3); Neutrophils Percent Auto 83.2 % (45-73); Platelet Count 308 X10*3/uL (160-400); Red Blood Count 5.79 X10*6/uL (4.60-5.80); Red Cell Distribution Width 13.6 % (11.0-16.0); White Blood Count 14.3 X10*3/uL (4.8-10.8)
[2025-02-09 12:32] LABS: VBG Base Excess -0.3 mmol/L; VBG HCO3 19 mmol/L (22-26); VBG pCO2 23 mmHg; VBG pH 7.53 (7.32-7.43); VBG pO2 67 mmHg
[2025-02-09 12:47] LABS: Alanine Aminotransferase 33 U/L (0-40); Anion Gap 18 (12-20); Aspartate Amino Transferase 104 U/L (5-37); Beta-Hydroxybutyrate 0.89 mmol/L (0.02-0.27); Bilirubin Total 1.1 mg/dL (0.0-1.0); Blood Urea Nitrogen 17 mg/dL (9-16); Calcium 9.9 mg/dL (8.4-10.2); Carbon Dioxide 19 mmol/L (22-29); Chloride 106 mmol/L (96-108); Creatinine Clr Calc Pharmacy 124.8; Estimated Glomerular Filt Rate > 60; Glucose Random 143 mg/dL (60-115); Lipase 93 U/L (8-78); Magnesium 1.8 mg/dL (1.6-2.6); Potassium 3.4 mmol/L (3.3-5.1); Sodium 140 mmol/L (135-145); Total Protein 7.6 g/dL (6.5-8.0)
[2025-02-09 13:11] LABS: Alkaline Phosphatase 129 U/L (39-117); Influenza A PCR NEGATIVE (Negative); Influenza B PCR NEGATIVE (Negative); Resp Syncy Virus RNA Qual PCR NEGATIVE (Negative); SARS COV2 PCR INHOUSE NEGATIVE (Negative)
[2025-02-09] MEDS: Lactated Ringers 1,000 ML 999 ML IV ×2 (13:41→15:25)
[2025-02-09] MEDS: diphenhydrAMINE HCL 50 MG/ML VIAL IVPUSH (13:41)
[2025-02-09] MEDS: Metoclopramide HCl 10 MG/2 ML VIAL IVPUSH (13:41)
[2025-02-09 13:51] VITALS: BP 144/76; PULSE 65; RESP 18; TEMP 36.8; O2SAT 94
[2025-02-09] MEDS: ondansetron HCL 4 MG/2 ML VIAL IVPUSH ×2 (15:25→20:51)
[2025-02-09 15:35] LABS: Appearance Urine Clear; Color Urine Dark Yellow; Glucose Urine UA Negative (Negative); Leukocyte Esterase Urine Negative (Negative); Nitrite Urine Negative (Negative); PH 5.5 (5.0-9.0); Specific Gravity - Urine >= 1.030 (1.005-1.025); UMIC TRIGGER UACC YES; Urine Blood Moderate (2+) (Negative); Urine Ketones 40 mg/dL (Negative); Urine Protein 100 (2+) mg/dL (Neg-Trace)
[2025-02-09 15:43] LABS: Amphetamine Screen Urine Not Detected (Not Detect); Barbiturates, Urine Not Detected (Not Detect); Benzodiazepines Screen Urine Not Detected (Not Detect); Buprenorphine Scr Not Detected (Not Detect); Cannabinoid Screen Urine POSITIVE (Not Detect); Cocaine Screen Urine Not Detected (Not Detect); Fentanyl, urine Not Detected (Not Detect); Methadone Screen, Urine Not Detected (Not Detect); Opiate Screen Urine POSITIVE (Not Detect); Oxycodone Screen Urine Not Detected (Not Detect); Phencyclidine Screen Urine Not Detected (Not Detect)
--- NOTE | 2025-02-09 15:44 | ECG_ITS ---
Test Reason : ABD PAIN Blood Pressure : */* mmHG Vent. Rate : 74 BPM Atrial Rate : 74 BPM P-R Int : 138 ms QRS Dur : 110 ms QT Int : 410 ms P-R-T Axes : 54 38 45 degrees QTcB Int : 455 ms Normal sinus rhythm with sinus arrhythmia Incomplete right bundle branch block Nonspecific ST and T wave abnormality Abnormal ECG When compared with ECG of 08-Feb-2025 08:46, No significant change was found Referred By: Mary Griffin Electronically Signed By: LING ABREU
[2025-02-09 15:52] LABS: Bacteria Urine None Seen (None Seen); RBC Urine 0-2 /HPF (0-2); Squamous Epithelial Cell Urine 0-2 /HPF (0-2); WBC Urine 0-5 /HPF (0-5)
[2025-02-09] MEDS: droPERidol 5 MG/2 ML VIAL 0.625 MG IVPUSH (15:54)
--- NOTE | 2025-02-09 16:09 | PC.NURSE ---
pt started to feel a little better for a while after he urinated started to feel bad again, with generalized abd pain, nausea and feeling extremely restless unable to stand still keeps moving around in bed, clammy feeling anxious, somehow pulled his first line out somehow, denies si/hi , pt has not vomited once since his arrival to the ed
--- NOTE | 2025-02-09 16:13 | MHC.EDTECH ---
EKG delayed due to patient anxiety level.Provider aware.
[2025-02-09 16:57] VITALS: BP 179/86; PULSE 68; RESP 20; TEMP 37.2; O2SAT 96
--- NOTE | 2025-02-09 17:12 | PM.IMHP ---
History of Present Illness Date of Service: 02/09/25 Attending physician on admission: Ian Lan Chief Complaint: Nausea and vomiting Pt is a 60-year-old male with a PMH significant for?HLD, HTN, GERD, gastric sleeve, hx of hernia repair, anxiety, and depression who presents to the ED with?persistent nausea, vomiting, and abdominal pain x2 days. Symptoms began evening shortly after dinner when he developed uncontrollable and persistent nausea and vomiting. Had diffuse abdominal pain described as crampy in nature, coming in waves, and associated with vomiting. Pt initially presented to the ED yesterday where CT imaging was negative for acute abdomen, and additional workup and examination relatively benign. Pt was eventually discharged back home with a prescription for Compazine and Zofran. Pt reports symptoms were not well-controlled despite taking prescription medication, and symptoms returned this morning. Last episode of vomiting shortly before arrival to the ED. pt reports a long hx of similar symptoms. Does use marijuana edibles primarily at night for sleep. Denies alcohol or illicit substance use. No chest pain/pressure, palpitations. Denies fever or chills. No SOB or difficulty breathing. During encounter with pt, he appears anxious and restless. Pt on prompted discusses how depressed, ugly, and mons stress he is. Denies SI/HI. Does not follow with a therapist or psychiatrist outpatient, though wishes to do so stating, ?I need all the help I can get?. In the ED pt was initially tachypneic up to 24 and hypertensive up to 179/86. Labs were significant for chronic leukocytosis of 14.3, T bili 1.1, AST 104, alk-phos 129, lipase 93, and beta hydroxybutyrate 0.89. UA not consistent with acute UTI, P showing proteinuria and moderate amount of blood. Tox screen positive for opiates and marijuana. UA negative for RSV, COVID, and flu. CT?of abdomen and pelvis from yesterday negative for obstruction, though internal hernia of right hemiabdomen can not be excluded. EKG demonstrated normal sinus rhythm with nonspecific ST and T-wave abnormalities. Pt was treated in the ED with IVF, diphenhydramine, metoclopramide, ondansetron, and droperidol. Pt is admitted to the hospital under observation for cyclic vomiting syndrome likely multifactorial: In the setting of marijuana use and uncontrolled anxiety. PMFSH Medical History Chronic pain syndrome HTN (hypertension) Elevated cholesterol Primary osteoarthritis of right knee Sleep apnea Type 2 diabetes mellitus Family History Mother Parkinson disease Surgical History History of total left knee replacement (TKR) Hx of appendectomy Hx of foot surgery Hx of hand surgery Hx of right inguinal hernia repair Hx of foot surgery Hx of lumbar discectomy H/O colonoscopy Hx of arthroscopic knee surgery H/O bariatric surgery Social History Household Members: Family Housing: House Are you a primary critical care nurse practitioner to a significant other at home: No Do you presently have visiting nurse or other home services: No Alcohol intake: current Alcohol intake frequency: does not drink Patient Tobacco Use Status: Former Tobacco user Tobacco use type: Cigarette Years Smoked: 15 Smoked in Last 30 Days: No Use of substances other than those prescribed or required for medical reasons: Yes Substance Use Type: Marijuana Substance Use Frequency: Occasionally Advance Directives: No Advance Directives Information Provided: No service: No Current occupational status: unemployed Current occupation: Right Handed Meds Allergies Allergy/AdvReac Type Severity Reaction Status Date / Time bee pollen [BEE STINGS] Allergy Severe ANAPHYLACTIC Verified 02/09/25 11:58 SHOCK- CARRIES EPI PEN Home Medications ?Medication ?Instructions ?Recorded ?Confirmed ?Last Taken ?Type amitriptyline 25 mg tablet 25 mg PO BEDTIME 11/18/20 02/09/25 02/07/25 History citalopram 40 mg tablet 40 mg PO BEDTIME 11/18/20 02/09/25 02/07/25 History lisinopril 10 mg tablet 10 mg PO BEDTIME 11/18/20 02/09/25 02/07/25 History atorvastatin 20 mg tablet 1 tab PO BEDTIME 02/16/21 02/09/25 02/07/25 History famotidine 20 mg tablet 20 mg PO BID PRN Heartburn 02/12/23 02/09/25 Unknown History latanoprost 0.005 % eye drops 1 drp ophthalmic (eye) BEDTIME 02/12/23 02/09/2525 History trazodone 50 mg tablet 50 mg PO BEDTIME PRN insomnia 02/09/25 02/09/25 Unknown History Physical Exam Vital Signs and Narrative: Vital Signs: Last Vital Signs Temp 99 F 02/09/25 16:57 Pulse 68 02/09/25 16:57 Resp 20 02/09/25 16:57 BP 179/86 H 02/09/25 16:57 Pulse Ox 96 02/09/25 16:57 O2 Del Method Room Air 02/09/25 16:57 BMI result Body Mass Index 37.6 General: AOx3. Pt look uncomfortable and restless, constantly shifting around in the bed. Resp: CTA bilaterally CVS: S1, S2, RRR GI: Benign: +BS, NT, no distention Skin: Warm, dry Neuro: Cranial nerves II-XII grossly intact bilaterally. Motor grossly intact bilaterally Extremities: No edema Psych: Restless, anxious, emotionally labile Results Labs 02/09/25 12:17 02/09/25 12:17 Labs: Laboratory Results - last 24 hr 02/09/25 02/09/25 02/09/25 12:17 12:27 15:23 MCV 80.5 MCH 29.5 MCHC 36.7 H RDW 13.6 Plt Count 308 MPV 9.4 Immature Gran % (Auto) 0.5 H Neut % (Auto) 83.2 H Lymph % (Auto) 9.2 L [place] % (Auto) 6.4 Eos % (Auto) 0.1 Baso % (Auto) 0.6 Lymph # (Auto) 1.3 [place] # (Auto) 0.9 Eos # (Auto) 0.0 Baso # (Auto) 0.1 Abs Immat Gran (auto) 0.07 H Absolute Neuts (auto) 11.9 H Absolute Nucleated RBC 0.000 Nucleated RBC % (auto) 0.0 VBG pH 7.53 H VBG pCO2 23 VBG pO2 67 VBG HCO3 19 L VBG O2 Saturation 96.0 VBG Base Excess -0.3 Anion Gap 18 Estim Creat Clear Calc 124.8 Estimated GFR > 60 Random Glucose 143 H Calcium 9.9 Magnesium 1.8 Total Bilirubin 1.1 H AST 104 H ALT 33 Alkaline Phosphatase 129 H Total Protein 7.6 Albumin 5.0 Lipase 93 H Beta-Hydroxybutyrate 0.89 H Urine Color Dark Yellow Urine Appearance Clear Urine pH 5.5 Ur Specific [place] >= 1.030 H Urine Protein 100 (2+) H Urine Glucose (UA) Negative Urine Ketones 40 Urine Blood Moderate (2+) H Urine Nitrite Negative Ur Leukocyte Esterase Negative Urine RBC 0-2 Urine WBC 0-5 Ur Squamous Epith Cells 0-2 Urine Bacteria None Seen Hyaline Casts 3-5 Urine Opiates Screen POSITIVE H Ur Buprenorphine Scrn Not Detected Ur Oxycodone Screen Not Detected Urine Methadone Screen Not Detected Urine Fentanyl Screen Not Detected Ur Barbiturates Screen Not Detected Ur Phencyclidine Scrn Not Detected Ur Amphetamines Screen Not Detected U Benzodiazepines Scrn Not Detected Urine Cocaine Screen Not Detected U Marijuana (THC) Screen POSITIVE H Influenza Type A (PCR) NEGATIVE Influenza Type B (PCR) NEGATIVE RSV RNA Qual (PCR) NEGATIVE SARS-CoV-2 RNA (RT-PCR) NEGATIVE Assessment and Plan (1) Intractable nausea and vomiting: Status: Acute Plan Pt is a 60-year-old male with a PMH significant for?HLD, HTN, GERD, gastric sleeve, hx of hernia repair, anxiety, and depression who presents to the ED with?persistent nausea, vomiting, and abdominal pain x2 days. Pt is admitted to the hospital under observation for cyclic vomiting syndrome likely multifactorial: In the setting of marijuana use and uncontrolled anxiety. Intractable nausea, vomiting, abdominal pain Ongoing since after dinner on Pt initially presented to the ED yesterday with CT negative for acute abd; was sent home on Compazine and Zofran Pt reports symptoms worsened again last night after attempting to eat dinner Has been unable to tolerate p.o. Last episode of vomiting just prior to presentation to the ED Possibly multifactorial: Secondary to marijuana use and uncontrolled anxiety Pt received Benadryl, metoclopramide, ondansetron, and parallel in the ED Will give Haldol 2.5 mg IM Valium [address] on maintenance fluids Capsaicin cream, antiemetics Clear liquid diet, advance as tolerated Mood disorder Pt presents with increased depression and anxiety Pt perseverates on how mom stress and ugly he is Denies SI/HI Follows with PCP, but no therapist or psychiatrist Care team crisis consult has been placed Continue amitriptyline and citalopram HTN Continue lisinopril HLD Continue statin GERD Continue famotidine DNR/DNI, verified with pt Attending:?Dr. Lan DVT Prophylaxis: Lovenox Pt will be admitted to the hospital under observation for treatment and further evaluation intractable nausea and vomiting likely secondary to cannabis hyperemesis syndrome complicated by uncontrolled anxiety. Pt will require hospital level of care for administration of IVF and IV antiemetics. Quality Stroke Does the patient have a stroke diagnosis?: No VTE Prior VTE?: No VTE Risk Level:: Medical - moderate - high VTE Device Contraindication: Treatment Not Indicated VTE Drug Contraindication: N/A - Med Ordered
--- NOTE | 2025-02-09 18:04 | PHA.MEDREC ---
Addendum entered by Lorene Encarnacion RPh 02/09/25 18:35: [facility] REVIEWED Original Note: Pharmacy Consult ? Medication Reconciliation Pharmacy has completed the medication reconciliation. Spoke to pt to confirm meds. Pt states no longer taking clotrimazole and hyoscyamine and only takes trazodone 50 mg bedtime prn.
--- NOTE | 2025-02-09 18:48 | PC.NURSE ---
report received from Aure ALCALA.
[2025-02-09] MEDS: diazePAM 10 MG/2 ML CARTRIDGE 5 MG IVPUSH (18:57)
[2025-02-09] MEDS: Haloperidol Lactate 5 MG/ML VIAL 2.5 MG IM (19:00)
[2025-02-09 19:06] VITALS: BP 154/85; PULSE 68; RESP 18; TEMP 37.4; O2SAT 93
--- NOTE | 2025-02-09 19:51 | PC.NURSE ---
pt feeling much better after the medications, Valium and Haldol workded with good effect, pt is drinking water no tremors visable or felt. Legs are no long restless and no long restless in bed.
[2025-02-09 20:15] VITALS: BP 165/85; PULSE 62; RESP 20; TEMP 36.4; O2SAT 98
[2025-02-09] MEDS: Atorvastatin Calcium 20 MG TABLET PO (20:41)
[2025-02-09] MEDS: Amitriptyline HCl 25 MG TABLET PO (20:41)
[2025-02-09] MEDS: Escitalopram Oxalate 20 MG TABLET PO (20:41)
[2025-02-09] MEDS: lisinopriL 10 MG TABLET PO (20:42)
[2025-02-09] MEDS: Lactated Ringers 1,000 ML 100 ML IVCONT (20:42)
[2025-02-09] MEDS: Latanoprost 0.005 % Ophth Sol 2.5 ML DROPS 1 DROP EYE-BOTH (22:04)
[2025-02-09 23:27] VITALS: BP 160/80; PULSE 71; RESP 20; TEMP 37.1; O2SAT 95
[2025-02-09] MEDS: 0.9 % Sodium Chloride Flush 3 ML SYRINGE IVFLUSH (23:39)
[2025-02-09] MEDS: Famotidine 20 MG TABLET PO (23:39)
[2025-02-10] VITALS (8 sets, daily range): BP systolic 139–162; BP diastolic 62–94; PULSE 60–86; RESP 16–20; TEMP 36.6–37.6; O2SAT 92–96
[2025-02-10] MEDS: traMADoL HCL 50 MG TABLET PO ×2 (00:01→23:28)
[2025-02-10] MEDS: Lidocaine HCl Viscous 2 % 15 ML SOLUTION MUCOUS MEM (00:12)
[2025-02-10] MEDS: ondansetron HCL 4 MG/2 ML VIAL IVPUSH ×2 (03:27→11:43)
[2025-02-10] MEDS: Lactated Ringers 1,000 ML 100 ML IVCONT ×2 (05:47→15:46)
[2025-02-10 06:18] LABS: Hemoglobin 15.9 g/dl (14.0-18.0); Mean Corpuscular HGB Conc 35.3 g/dl (31.0-36.0); Mean Corpuscular Hemoglobin 28.8 pg (27.0-33.0); Mean Corpuscular Volume 81.5 fL (80.0-98.0); Mean Platelet Volume 9.5 fL (9.4-12.4); Platelet Count 257 X10*3/uL (160-400); Red Blood Count 5.52 X10*6/uL (4.60-5.80); Red Cell Distribution Width 13.3 % (11.0-16.0); White Blood Count 11.1 X10*3/uL (4.8-10.8)
[2025-02-10 06:39] LABS: Anion Gap 14 (12-20); Blood Urea Nitrogen 13 mg/dL (9-16); Carbon Dioxide 25 mmol/L (22-29); Chloride 103 mmol/L (96-108); Creatinine Clr Calc Pharmacy 156.1; Estimated Glomerular Filt Rate > 60; Glucose Random 118 mg/dL (60-115); Potassium 3.5 mmol/L (3.3-5.1); Sodium 138 mmol/L (135-145)
[2025-02-10] MEDS: Dicyclomine HCl 10 MG CAPSULE PO ×2 (12:15→22:56)
--- NOTE | 2025-02-10 12:40 | MHC.CM.PN ---
PT REPORTS HE LIVES WITH HIS BROTHER AND IS INDEPENDENT WITH CARE HE HAS NO SERVICES AND A CPAP FOR DME HE DECLINES ASSISTANCE COMPLETING A HCP PCP: KERRY SANZ OBSERVATION NOTICE DELIVERED DCP: HOME VIA PRIVATE TRANSPORT
--- NOTE | 2025-02-10 14:25 | HO.PM.IMPN ---
Subjective Subjective Date of Service: 02/10/25 Interval History: seen and examined this morning follow up for abdominal pain , N/V this morning all symptoms improved but patient did not feel ready to advance diet; pt then reported more crampy abdominal pain no further nausea or vomiting; no diarrhea Review of Systems Review of Systems: Yes all other systems are reviewed and are negative Constitutional Constitutional: Denies chills and Denies fever(s) Cardiovascular Cardiovascular: Denies chest pain, Denies palpitations and Denies dyspnea Respiratory Respiratory: Denies cough and Denies dyspnea Endocrine Endocrine: Denies palpitations Physical Exam Vital Signs: Vital Signs: Last Vital Signs Temp 99.1 F 02/10/25 11:51 Pulse 69 02/10/25 11:51 Resp 18 02/10/25 11:51 BP 139/71 02/10/25 11:51 Pulse Ox 95 02/10/25 11:51 O2 Del Method Room Air 02/10/25 11:51 BMI result Body Mass Index 37.6 Const: General: cooperative, comfortable, alert and awake Nutritional Appearance: obese Orientation/consciousness: patient oriented x3 Resp: Effort & Inspection: normal respiratory effort, able to speak in complete sentences, no respiratory distress and no use of accessory muscles Auscultation: clear to auscultation bilaterally Cardio: Rate: regular rate GI: Inspection: No distended Palpation (GI): Soft to palpation and nontender Neuro: General: patient oriented x3, moves all extremities and CN's II-XI intact bilaterally Extrem: General: Yes no pedal edema Objective Data Active Medications Acetaminophen (Acetaminophen 325 Mg Tablet) 650 mg PO Q6H PRN PRN Reason: Pain, Mild 1-3,fever,headache Amitriptyline HCl (Amitriptyline Hcl 25 Mg Tablet) 25 mg PO BEDTIME [facility] Last Admin: 02/09/25 20:41 Dose: 25 mg Documented By: MIKE Atorvastatin Calcium (Atorvastatin Calcium 20 Mg Tablet) 20 mg PO BEDTIME [facility] Last Admin: 02/09/25 20:41 Dose: 20 mg Documented By: MIKE Calcium Carbonate (Calcium Carbonate 750 Mg Tab.Chew) 750 mg PO Q4H PRN PRN Reason: Heartburn Capsaicin (Capsaicin 0.025% Cream 60 Gm Tube) 1 appl TOPICAL TID PRN; Protocol PRN Reason: Nausea and Vomiting Dicyclomine HCl (Dicyclomine Hcl 10 Mg Capsule) 10 mg PO TIDAC PRN PRN Reason: abdominal cramping Last Admin: 02/10/25 12:15 Dose: 10 mg Documented By: ALICIA Escitalopram Oxalate (Escitalopram Oxalate 20 Mg Tablet) 20 mg PO BEDTIME [facility] Last Admin: 02/09/25 20:41 Dose: 20 mg Documented By: MIKE Famotidine (Famotidine 20 Mg Tablet) 20 mg PO BID PRN PRN Reason: Heartburn Last Admin: 02/09/25 23:39 Dose: 20 mg Documented By: ALIA Latanoprost (Latanoprost 0.005 % Ophth Julisa 2.5 Ml Drops) 1 drop EYE-BOTH BEDTIME [facility] Last Admin: 02/09/25 22:04 Dose: 1 drop Documented By: MIKE Lisinopril (Lisinopril 10 Mg Tablet) 10 mg PO BEDTIME [facility]; Protocol Last Admin: 02/09/25 20:42 Dose: 10 mg Documented By: MIKE Magnesium Hydroxide (Milk Of Magnesia 30 Ml Oral.Susp) 30 ml PO DAILY PRN PRN Reason: Constipation Melatonin (Melatonin 3 Mg Tablet) 6 mg PO BEDTIME PRN PRN Reason: Insomnia Ondansetron HCl (Ondansetron Hcl 4 Mg/2 Ml Vial) 4 mg IVPUSH Q8H PRN PRN Reason: Nausea and Vomiting Last Admin: 02/10/25 11:43 Dose: 4 mg Documented By: ALICIA Sodium Chloride (0.9 % Sodium Chloride Flush 3 Ml Syringe) 3 [facility] Last Admin: 02/10/25 07:14 Dose: Not Given Documented By: ALICIA Non-Admin Reason: IV Running Trazodone HCl (Trazodone Hcl 50 Mg Tablet) 50 mg PO BEDTIME PRN PRN Reason: insomnia Labs 02/10/25 05:59 02/10/25 05:59 Labs: Laboratory Results - last 24 hr 02/09/25 02/10/25 15:23 05:59 MCV 81.5 MCH 28.8 MCHC 35.3 RDW 13.3 Plt Count 257 MPV 9.5 Absolute Nucleated RBC 0.000 Nucleated RBC % (auto) 0.0 Anion Gap 14 Estim Creat Clear Calc 156.1 Estimated GFR > 60 Random Glucose 118 H Calcium 9.0 D Urine Color Dark Yellow Urine Appearance Clear Urine pH 5.5 Ur Specific [place] >= 1.030 H Urine Protein 100 (2+) H Urine Glucose (UA) Negative Urine Ketones 40 Urine Blood Moderate (2+) H Urine Nitrite Negative Ur Leukocyte Esterase Negative Urine RBC 0-2 Urine WBC 0-5 Ur Squamous Epith Cells 0-2 Urine Bacteria None Seen Hyaline Casts 3-5 Urine Opiates Screen POSITIVE H Ur Buprenorphine Scrn Not Detected Ur Oxycodone Screen Not Detected Urine Methadone Screen Not Detected Urine Fentanyl Screen Not Detected Ur Barbiturates Screen Not Detected Ur Phencyclidine Scrn Not Detected Ur Amphetamines Screen Not Detected U Benzodiazepines Scrn Not Detected Urine Cocaine Screen Not Detected U Marijuana (THC) Screen POSITIVE H Assessment and Plan (1) Intractable nausea and vomiting: Status: Acute (2) Abdominal pain: Status: Acute Plan This is a 60-year-old male with a PMH significant for?HLD, HTN, GERD, gastric sleeve, hx of hernia repair, anxiety, and depression who presents to the ED with?persistent nausea, vomiting, and abdominal pain x2 days admitted for intractable nausea and vomiting Intractable nausea, vomiting, abdominal pain Pt initially presented to the ED yesterday with CT negative for acute abd; was sent home on Compazine and Zofran no further vomiting Tolerating clear liquids, fail diet advancement, will order full liquids Continue IV fluid, antiemetics crampy abdominal pain, bentyl added Mood disorder Pt presents with increased depression and anxiety Denies SI/HI Follows with PCP, but no therapist or psychiatrist Continue amitriptyline and citalopram Care team evaluation when medically clear HTN Continue lisinopril HLD Continue statin GERD Continue famotidine DVT Prophylaxis: Lovenox Pt will be admitted to the hospital under observation for treatment and further evaluation intractable nausea and vomiting likely secondary to cannabis hyperemesis syndrome complicated by uncontrolled anxiety. Pt will require hospital level of care for administration of IVF and IV antiemetics. Quality Stroke Does the patient have a stroke diagnosis?: No VTE Prior VTE?: No VTE Risk Level:: Medical - moderate - high VTE Device Contraindication: Treatment Not Indicated VTE Drug Contraindication: N/A - Med Ordered
[2025-02-10] MEDS: 0.9 % Sodium Chloride Flush 3 ML SYRINGE IVFLUSH (15:46)
[2025-02-10] MEDS: Famotidine/PF 20 MG/2 ML VIAL IVPUSH (15:46)
[2025-02-10] MEDS: Amitriptyline HCl 25 MG TABLET PO (21:12)
[2025-02-10] MEDS: lisinopriL 10 MG TABLET PO (21:12)
[2025-02-10] MEDS: Escitalopram Oxalate 20 MG TABLET PO (21:17)
[2025-02-10] MEDS: Atorvastatin Calcium 20 MG TABLET PO (21:17)
[2025-02-10] MEDS: Latanoprost 0.005 % Ophth Sol 2.5 ML DROPS 1 DROP EYE-BOTH (21:18)
[2025-02-10] MEDS: traZODone HCL 50 MG TABLET PO (22:56)
[2025-02-11] MEDS: ondansetron HCL 4 MG/2 ML VIAL IVPUSH ×2 (03:25→14:47)
[2025-02-11 03:30] VITALS: BP 145/64; PULSE 67; RESP 18; TEMP 36.7; O2SAT 94
[2025-02-11 06:04] LABS: Alanine Aminotransferase 30 U/L (0-40); Albumin Level 4.2 g/dL (3.5-5.0); Alkaline Phosphatase 116 U/L (39-117); Aspartate Amino Transferase 63 U/L (5-37); Bilirubin Direct 0.5 mg/dL (0.0-0.5); Bilirubin Total 1.2 mg/dL (0.0-1.0); Total Protein 6.6 g/dL (6.5-8.0)
[2025-02-11 07:36] VITALS: BP 149/85; PULSE 64; RESP 16; TEMP 36.3; O2SAT 95
[2025-02-11] MEDS: Famotidine/PF 20 MG/2 ML VIAL IVPUSH (08:18)
[2025-02-11] MEDS: 0.9 % Sodium Chloride Flush 3 ML SYRINGE IVFLUSH ×3 (08:18→19:12)
--- NOTE | 2025-02-11 09:07 | P.PNIM_ITS ---
Subjective Subjective Date of Service: 02/11/25 Interval History: follow up for abdominal pain , N/V all symptoms improved but patient did not feel ready to advance diet; pt then reported more crampy abdominal pain no further nausea or vomiting; no diarrhea Review of Systems Review of Systems: Yes all other systems are reviewed and are negative Constitutional Constitutional: Denies chills and Denies fever(s) Cardiovascular Cardiovascular: Denies chest pain, Denies palpitations and Denies dyspnea Respiratory Respiratory: Denies cough and Denies dyspnea Endocrine Endocrine: Denies palpitations Physical Exam 2 Vital Signs: Vital Signs: Last Vital Signs Temp 97.4 F 02/11/25 07:36 Pulse 64 02/11/25 07:36 Resp 16 02/11/25 07:36 BP 149/85 H 02/11/25 07:36 Pulse Ox 95 02/11/25 07:36 O2 Del Method Room Air 02/11/25 07:36 BMI result Body Mass Index 37.6 Appearing in no acute distress lung sounds are clear to auscultation heart regular rate rhythm, clear S1, S2 positive bowel sounds, abdomen is soft, nontender neuro patient is alert x3, no focal deficits Objective Data Active Medications Acetaminophen (Acetaminophen 325 Mg Tablet) 650 mg PO Q6H PRN PRN Reason: Pain, Mild 1-3,fever,headache Amitriptyline HCl (Amitriptyline Hcl 25 Mg Tablet) 25 mg PO BEDTIME [facility] Last Admin: 02/10/25 21:12 Dose: 25 mg Documented By: TULIO Atorvastatin Calcium (Atorvastatin Calcium 20 Mg Tablet) 20 mg PO BEDTIME [facility] Last Admin: 02/10/25 21:17 Dose: 20 mg Documented By: TULIO Calcium Carbonate (Calcium Carbonate 750 Mg Tab.Chew) 750 mg PO Q4H PRN PRN Reason: Heartburn Capsaicin (Capsaicin 0.025% Cream 60 Gm Tube) 1 appl TOPICAL TID PRN; Protocol PRN Reason: Nausea and Vomiting Dicyclomine HCl (Dicyclomine Hcl 10 Mg Capsule) 10 mg PO TIDAC PRN PRN Reason: abdominal cramping Last Admin: 02/10/25 22:56 Dose: 10 mg Documented By: TULIO Escitalopram Oxalate (Escitalopram Oxalate 20 Mg Tablet) 20 mg PO BEDTIME [facility] Last Admin: 02/10/25 21:17 Dose: 20 mg Documented By: TULIO Famotidine (Famotidine/Pf 20 Mg/2 Ml Vial) 20 mg IVPUSH DAILY [facility] Last Admin: 02/11/25 08:18 Dose: 20 mg Documented By: ABDULLAHI Latanoprost (Latanoprost 0.005 % Ophth Julisa 2.5 Ml Drops) 1 drop EYE-BOTH BEDTIME [facility] Last Admin: 02/10/25 21:18 Dose: 1 drop Documented By: TULIO Lisinopril (Lisinopril 10 Mg Tablet) 10 mg PO BEDTIME [facility]; Protocol Last Admin: 02/10/25 21:12 Dose: 10 mg Documented By: TULIO Magnesium Hydroxide (Milk Of Magnesia 30 Ml Oral.Susp) 30 ml PO DAILY PRN PRN Reason: Constipation Melatonin (Melatonin 3 Mg Tablet) 6 mg PO BEDTIME PRN PRN Reason: Insomnia Ondansetron HCl (Ondansetron Hcl 4 Mg/2 Ml Vial) 4 mg IVPUSH Q8H PRN PRN Reason: Nausea and Vomiting Last Admin: 02/11/25 03:25 Dose: 4 mg Documented By: TULIO Sodium Chloride (0.9 % Sodium Chloride Flush 3 Ml Syringe) 3 ml IVFLUSH QSHIFT [facility] Last Admin: 02/11/25 08:18 Dose: 3 ml Documented By: ABDULLAHI Trazodone HCl (Trazodone Hcl 50 Mg Tablet) 50 mg PO BEDTIME PRN PRN Reason: insomnia Last Admin: 02/10/25 22:56 Dose: 50 mg Documented By: TULIO Labs 02/10/25 05:59 02/10/25 05:59 Labs: Laboratory Results - last 24 hr 02/11/25 05:06 Hold Purple Top SEE NOTE Total Bilirubin 1.2 H Direct Bilirubin 0.5 AST 63 H ALT 30 Alkaline Phosphatase 116 Total Protein 6.6 Albumin 4.2 Assessment and Plan (1) Intractable nausea and vomiting: Status: Acute (2) Abdominal pain: Status: Acute Plan 60-year-old male with a PMH significant for?HLD, HTN, GERD, gastric sleeve, hx of hernia repair, anxiety, and depression who presents to the ED with?persistent nausea, vomiting, and abdominal pain x2 days admitted for intractable nausea and vomiting Intractable nausea, vomiting, abdominal pain CT negative for acute abd no further vomiting Tolerating clear liquids Continue IV fluid, antiemetics crampy abdominal pain, bentyl added GI consultation Mood disorder Pt presents with increased depression and anxiety Denies SI/HI Follows with PCP, but no therapist or psychiatrist Continue amitriptyline and citalopram Care team evaluation when medically clear HTN Continue lisinopril HLD Continue statin GERD Continue famotidine DVT Prophylaxis: Lovenox full code Quality Stroke Does the patient have a stroke diagnosis?: No VTE Prior VTE?: No VTE Risk Level:: Medical - moderate - high VTE Device Contraindication: Treatment Not Indicated VTE Drug Contraindication: N/A - Med Ordered
[2025-02-11 11:26] VITALS: BP 130/75; PULSE 67; RESP 16; TEMP 36.6; O2SAT 93
--- NOTE | 2025-02-11 12:48 | MHC.CM.PN ---
EMR REVIEWED, PT W/INTRACTABLE NV, IMPROVING HOWEVER REMAINS ON FULL LIQUIDS, PT CONT'S TO COMPLAIN OF ABD PAIN, NO PLAN FOR DC AT THIS TIME, ANTIC PT WILL DC HOME SELF CARE ONCE MEDICALLY CLEARED, CM WILL CONT TO FOLLOW DC NEEDS.
[2025-02-11 15:12] VITALS: BP 138/73; PULSE 63; RESP 18; TEMP 36.4; O2SAT 94
[2025-02-11 19:04] VITALS: BP 132/79; PULSE 65; RESP 17; TEMP 36.8; O2SAT 96
[2025-02-11] MEDS: lisinopriL 10 MG TABLET PO (19:10)
[2025-02-11] MEDS: Atorvastatin Calcium 20 MG TABLET PO (19:10)
[2025-02-11] MEDS: Dicyclomine HCl 10 MG CAPSULE PO (19:10)
[2025-02-11] MEDS: Amitriptyline HCl 25 MG TABLET PO (19:11)
[2025-02-11] MEDS: Escitalopram Oxalate 20 MG TABLET PO (19:11)
[2025-02-11] MEDS: Latanoprost 0.005 % Ophth Sol 2.5 ML DROPS 1 DROP EYE-BOTH (19:12)
[2025-02-11] MEDS: traZODone HCL 50 MG TABLET PO (21:43)
[2025-02-12] MEDS: Acetaminophen 325 MG TABLET 650 MG PO (01:50)
--- NOTE | 2025-02-12 02:58 | CONS_ITS ---
DATE OF SERVICE: 02/11/2025 REFERRING PHYSICIAN: XIOMY Bo REASON FOR CONSULTATION: Nausea, vomiting, and abdominal pain. HISTORY OF PRESENT ILLNESS: The patient is a pleasant 60-year-old man who was admitted to the hospital after presenting to the emergency department with nausea, vomiting, and crampy abdominal pain. He states he was well until 2 days before admission, after eating supper when he developed nausea and vomiting. He had the same meal as his brother and his brother did not get sick. This was associated with crampy abdominal pain. There was no hematemesis or melena. He was initially seen in the emergency room with imaging that was negative including a CT scan and was discharged on antiemetics. Symptoms persisted despite this and he re-presented to the emergency room, where he was evaluated again with laboratory studies and imaging, these are reviewed. The 2nd CT scan reported that an internal right robert-abdomen hernia could not be excluded due to swirling of the mesenteric vessels in the right abdomen, there was no evidence for bowel obstruction. The patient was admitted and treated with antiemetics. He has been given dicyclomine for crampy abdominal pain. PAST MEDICAL HISTORY: 1. Hypertension. 2. Hyperlipidemia. 3. Osteoarthritis with knee replacements. 4. Diabetes mellitus type 2. 5. Gastroesophageal reflux disease. 6. Gastric sleeve surgery. 7. Hernia repair. 8. Anxiety/depression. 9. Colonoscopy/endoscopy at [facility] within the past 5 years for colon polyps and GERD. CURRENT MEDICATIONS: Current medication list is reviewed in the chart. ALLERGIES: BEE POLLEN. FAMILY HISTORY: This is reviewed with the patient and is noncontributory. SOCIAL HISTORY: There is no current tobacco use or alcohol use. He does use marijuana. REVIEW OF SYSTEMS: SKIN: No pruritus. HEENT: Negative. CARDIOPULMONARY: He denies shortness of breath or chest pain. GASTROINTESTINAL: As above. GENITOURINARY: Negative. NEUROPSYCHIATRIC: Negative. PHYSICAL EXAMINATION: GENERAL: Shows a pleasant, well-appearing male, in no acute distress. VITAL SIGNS: Reviewed in electronic medical record and are stable. SKIN: Anicteric. HEENT: Shows no scleral icterus. NECK: Without lymphadenopathy or thyromegaly. LUNGS: Clear. HEART: Shows a regular rate and rhythm. S1, S2. No murmur. ABDOMEN: Soft without focal masses or tenderness. Bowel sounds are present. No organomegaly is noted. EXTREMITIES: Without edema. He has scars from his knee surgeries. LABORATORY DATA AND IMAGING STUDIES: Reviewed. IMPRESSION: Nausea and vomiting with epigastric pain. His presentation is very consistent with a viral gastroenteritis. I do not think this is food poisoning as the other person eating the same meal did not get sick. I would recommend supportive treatment with IV fluids, antiemetics, and dicyclomine as needed for abdominal cramping as he follows up regularly with GI providers in [place], he can see them in followup as needed after discharge. Thanks for asking me to see him. I will follow him in the hospital with you. MD MADHAVI De La Cruz/SESAR / [phone]
[2025-02-12 03:07] VITALS: BP 120/73; PULSE 59; RESP 18; TEMP 36.3; O2SAT 93
[2025-02-12 07:36] VITALS: BP 112/73; PULSE 63; RESP 16; TEMP 36.6; O2SAT 95
[2025-02-12] MEDS: Famotidine/PF 20 MG/2 ML VIAL IVPUSH (08:10)
[2025-02-12] MEDS: 0.9 % Sodium Chloride Flush 3 ML SYRINGE IVFLUSH (08:12)
--- NOTE | 2025-02-12 14:48 | HO.PM.IMPN ---
Subjective Subjective Date of Service: 02/12/25 Interval History: follow up for abdominal pain , N/V no further nausea or vomiting; no diarrhea still with some mild abd pain Review of Systems Review of Systems: Yes all other systems are reviewed and are negative Constitutional Constitutional: Denies chills and Denies fever(s) Cardiovascular Cardiovascular: Denies chest pain, Denies palpitations and Denies dyspnea Respiratory Respiratory: Denies cough and Denies dyspnea Endocrine Endocrine: Denies palpitations Physical Exam Vital Signs: Vital Signs: Last Vital Signs Temp 97.9 F 02/12/25 07:36 Pulse 63 02/12/25 07:36 Resp 16 02/12/25 07:36 BP 112/73 02/12/25 07:36 Pulse Ox 95 02/12/25 07:36 O2 Del Method Room Air 02/12/25 07:36 BMI result Body Mass Index 37.6 Appearing in no acute distress lung sounds are clear to auscultation heart regular rate rhythm, clear S1, S2 positive bowel sounds, abdomen is soft, nontender neuro patient is alert x3, no focal deficits Objective Data Active Medications Acetaminophen (Acetaminophen 325 Mg Tablet) 650 mg PO Q6H PRN PRN Reason: Pain, Mild 1-3,fever,headache Last Admin: 02/12/25 01:50 Dose: 650 mg Documented By: RATNA Amitriptyline HCl (Amitriptyline Hcl 25 Mg Tablet) 25 mg PO BEDTIME [facility] Last Admin: 02/11/25 19:11 Dose: 25 mg Documented By: RATNA Atorvastatin Calcium (Atorvastatin Calcium 20 Mg Tablet) 20 mg PO BEDTIME [facility] Last Admin: 02/11/25 19:10 Dose: 20 mg Documented By: RATNA Calcium Carbonate (Calcium Carbonate 750 Mg Tab.Chew) 750 mg PO Q4H PRN PRN Reason: Heartburn Capsaicin (Capsaicin 0.025% Cream 60 Gm Tube) 1 appl TOPICAL TID PRN; Protocol PRN Reason: Nausea and Vomiting Dicyclomine HCl (Dicyclomine Hcl 10 Mg Capsule) 10 mg PO TIDAC PRN PRN Reason: abdominal cramping Last Admin: 02/11/25 19:10 Dose: 10 mg Documented By: RATNA Escitalopram Oxalate (Escitalopram Oxalate 20 Mg Tablet) 20 mg PO BEDTIME [facility] Last Admin: 02/11/25 19:11 Dose: 20 mg Documented By: RATNA Famotidine (Famotidine/Pf 20 Mg/2 Ml Vial) 20 mg IVPUSH DAILY [facility] Last Admin: 02/12/25 08:10 Dose: 20 mg Documented By: ABDULLAHI Latanoprost (Latanoprost 0.005 % Ophth Julisa 2.5 Ml Drops) 1 drop EYE-BOTH BEDTIME [facility] Last Admin: 02/11/25 19:12 Dose: 1 drop Documented By: RATNA Lisinopril (Lisinopril 10 Mg Tablet) 10 mg PO BEDTIME [facility]; Protocol Last Admin: 02/11/25 19:10 Dose: 10 mg Documented By: RATNA Magnesium Hydroxide (Milk Of Magnesia 30 Ml Oral.Susp) 30 ml PO DAILY PRN PRN Reason: Constipation Melatonin (Melatonin 3 Mg Tablet) 6 mg PO BEDTIME PRN PRN Reason: Insomnia Ondansetron HCl (Ondansetron Hcl 4 Mg/2 Ml Vial) 4 mg IVPUSH Q8H PRN PRN Reason: Nausea and Vomiting Last Admin: 02/11/25 14:47 Dose: 4 mg Documented By: ABDULLAHI Sodium Chloride (0.9 % Sodium Chloride Flush 3 Ml Syringe) 3 ml IVFLUSH QSHIFT [facility] Last Admin: 02/12/25 08:12 Dose: 3 ml Documented By: ABDULLAHI Trazodone HCl (Trazodone Hcl 50 Mg Tablet) 50 mg PO BEDTIME PRN PRN Reason: insomnia Last Admin: 02/11/25 21:43 Dose: 50 mg Documented By: RATNA Labs 02/10/25 05:59 02/10/25 05:59 Assessment and Plan (1) Intractable nausea and vomiting: Status: Acute (2) Abdominal pain: Status: Acute Plan 60-year-old male with a PMH significant for?HLD, HTN, GERD, gastric sleeve, hx of hernia repair, anxiety, and depression who presents to the ED with?persistent nausea, vomiting, and abdominal pain x2 days admitted for intractable nausea and vomiting Intractable nausea, vomiting, abdominal pain CT negative for acute abd no further vomiting Tolerating clear liquids Continue IV fluid, antiemetics crampy abdominal pain, bentyl added GI consultation> no need for EGD at this time Mood disorder Pt presents with increased depression and anxiety Denies SI/HI Follows with PCP, but no therapist or psychiatrist Continue amitriptyline and citalopram Care team evaluation when medically clear HTN Continue lisinopril HLD Continue statin GERD Continue famotidine DVT Prophylaxis: Lovenox full code Quality Stroke Does the patient have a stroke diagnosis?: No VTE Prior VTE?: No VTE Risk Level:: Medical - moderate - high VTE Device Contraindication: Treatment Not Indicated VTE Drug Contraindication: N/A - Med Ordered
[2025-02-12 15:05] VITALS: BP 143/70; PULSE 74; RESP 18; TEMP 36.9; O2SAT 96
--- NOTE | 2025-02-12 16:34 | P.DS_ITS ---
DS: Providers Provider Date of Service: 02/12/25 Date of admission: 02/09/25 16:56 Date of discharge: 02/12/25 Primary care physician: XIOMY Draper Consults: 02/09/25 16:07 ED CARE Team Crisis Consult Stat Comment: Reason for consultation: increased depression 02/11/25 09:11 Consult to Gastroenterology Routine Consulting Provider: Sourav Bass Reason for consultation: abd pain DS: Diagnosis Discharge Diagnosis (1) Intractable nausea and vomiting: Status: Acute (2) Abdominal pain: Status: Acute DS: Summary Hospital Course Hospital Course: Physical as per admitting provider. Pt is a 60-year-old male with a PMH significant for?HLD, HTN, GERD, gastric sleeve, hx of hernia repair, anxiety, and depression who presents to the ED with?persistent nausea, vomiting, and abdominal pain x2 days. Symptoms began evening shortly after dinner when he developed uncontrollable and persistent nausea and vomiting. Had diffuse abdominal pain described as crampy in nature, coming in waves, and associated with vomiting. Pt initially presented to the ED yesterday where CT imaging was negative for acute abdomen, and additional workup and examination relatively benign. Pt was eventually discharged back home with a prescription for Compazine and Zofran. Pt reports symptoms were not well-controlled despite taking prescription medication, and symptoms returned this morning. Last episode of vomiting shortly before arrival to the ED. pt reports a long hx of similar symptoms. Does use marijuana edibles primarily at night for sleep. Denies alcohol or illicit substance use. No chest pain/pressure, palpitations. Denies fever or chills. No SOB or difficulty breathing. During encounter with pt, he appears anxious and restless. Pt on prompted discusses how depressed, ugly, and mons stress he is. Denies SI/HI. Does not follow with a therapist or psychiatrist outpatient, though wishes to do so stating, ?I need all the help I can get?. In the ED pt was initially tachypneic up to 24 and hypertensive up to 179/86. Labs were significant for chronic leukocytosis of 14.3, T bili 1.1, AST 104, alk-phos 129, lipase 93, and beta hydroxybutyrate 0.89. UA not consistent with acute UTI, P showing proteinuria and moderate amount of blood. Tox screen positive for opiates and marijuana. UA negative for RSV, COVID, and flu. CT?of abdomen and pelvis from yesterday negative for obstruction, though internal hernia of right hemiabdomen can not be excluded. EKG demonstrated normal sinus rhythm with nonspecific ST and T-wave abnormalities. Pt was treated in the ED with IVF, diphenhydramine, metoclopramide, ondansetron, and droperidol. Pt is admitted to the hospital under observation for cyclic vomiting syndrome likely multifactorial: In the setting of marijuana use and uncontrolled anxiety. 60-year-old man treated for acute on chronic intractable nausea, vomiting and abdominal pain. CT abdomen negative for acute abdomen. Patient had no further vomiting yesterday or today. He tolerated a clear liquid diet and was advanced to regular and as tolerated that well. He was treated with IV fluids, antiemetics and Bentyl was added. Seen and evaluated by Gastroenterology who did not recommend any EGD at this time. Patient is to continue his PPI. Mental health. He presented with some increased depression and anxiety but denied any SI, we continues his amitriptyline and citalopram. Patient to follow up with his primary care provider or his therapist outpatient. Intractable nausea and vomiting Abdominal pain Time Attestation Discharge Coordination Time (in mins): 38 Quality: Safe Use of Opioids Does Pt have an Active Cancer Diagnosis on the Problem List?: No Quality: Stroke Does the patient have a stroke diagnosis?: No Physical Exam Vital Signs: Vital Signs: Last Vital Signs Temp 98.5 F 02/12/25 15:05 Pulse 74 02/12/25 15:05 Resp 18 02/12/25 15:05 BP 143/70 H 02/12/25 15:05 Pulse Ox 96 02/12/25 15:05 O2 Del Method Room Air 02/12/25 15:05 BMI result Body Mass Index 37.6 Appearing in no acute distress head is normocephalic atraumatic eyes pupils are PERRLA sclera is anicteric mouth throat mucous membranes are intact and moist neck is supple no lymphadenopathy, no JVD noted lung sounds are clear to auscultation heart regular rate rhythm, clear S1, S2 positive bowel sounds, abdomen is soft, nontender neuro patient is alert x3, no focal deficits DS: Data Data Completed and Pending Completed studies during hospitalization [Text1]: Procedures Replacement of Left Knee Joint with Synthetic Substitute, Uncemented, Open Approach (02/16/21) Discharge Plan Discharge Anticipated Discharge Date/Time: 02/12/25 16:33 Patient Disposition: Home, Self-Care Discharge Diagnosis: Intractable nausea and vomiting abdominal pain Referrals: Jason Jha PA [Primary Care Provider] - 1 Week Discharge Medications: New dicyclomine 10 mg Capsule 10 mg PO TIDAC PRN (Reason: abdominal cramping) Qty: 15 0RF Continued (DME) walker Misc See Rx Instructions .ROUTE .MEDSUPPLY Qty: 1 0RF Rx Instructions: Folding front wheeled walker atorvastatin 20 mg tablet 1 tab PO BEDTIME latanoprost 0.005 % Drops 1 drp OPHTHALMIC (EYE) BEDTIME Rx Instructions: Instill 1 drop into each eye famotidine 20 mg Tablet 20 mg PO BID PRN (Reason: Heartburn) trazodone 50 mg tablet 50 mg PO BEDTIME PRN (Reason: insomnia) lisinopril 10 mg tablet 10 mg PO BEDTIME amitriptyline 25 mg tablet 25 mg PO BEDTIME citalopram 40 mg tablet 40 mg PO BEDTIME Discharge Orders: Discharge Order (Routine); Ordered 02/12/25 Ordered By: Christy Romano Diet: Advance to usual diet Activity on Discharge: As tolerated Stand Alone Forms: Patient Portal Discharge page Print Language: [place] Care Plan Goals: Follow up with Gastroenterology as needed Avoid heavy foods for about a week Health Concerns: Intractable nausea and vomiting Abdominal pain Plan of Treatment: Follow-up with primary care provider as needed Take all medications as prescribed Assessment: See discharge summary
== END 2025-02-12 16:59 | disposition home or self-care (01) ==
LOC: HO.ED 16:31 → HO.EDOVER 17:07 → HO.S3 19:36
PROVIDERS: Nurse Practitioner Family; Physician Assistant; Physician Assistant Medical; Admitting Provider Student in an Organized Health Care Education/Training Program; Emergency Provider Emergency Medicine; PCP Physician Assistant Medical; Visit Provider Nurse Practitioner Acute Care
DX: R11.2 Nausea with vomiting, unspecified (principal); E11.9 Type 2 diabetes mellitus without complications; I10 Essential (primary) hypertension; E78.5 Hyperlipidemia, unspecified; D72.829 Elevated white blood cell count, unspecified; F32.A Depression, unspecified; G89.4 Chronic pain syndrome; F39 Unspecified mood [affective] disorder; K21.9 Gastro-esophageal reflux disease without esophagitis; Z79.899 Other long term (current) drug therapy
CPT/HCPCS: 0241U; 36415; 80048; 80053; 80076; 80307; 81001; 82010; 82803; 83690; 83735; 85025; 85027; 93005; 96361; 96372; 96374; 96375; 96376; 97161; 99221; 99285; J1200; J1308; J1630; J1790; J2405; J2765; J3360; J7120

== ENCOUNTER → 2025-02-09 15:44 | Outpatient (BNV) | payer OTHER, SELFPAY | PROVIDERS: Admitting Provider Student in an Organized Health Care Education/Training Program; Emergency Provider Emergency Medicine; PCP Physician Assistant Medical; Visit Provider Internal Medicine | DX: I45.10 Unspecified right bundle-branch block (principal) | CPT/HCPCS: 93010 ==

== ENCOUNTER → 2025-02-09 16:56 | Outpatient (BNV) | payer OTHER, SELFPAY | PROVIDERS: Admitting Provider Student in an Organized Health Care Education/Training Program; Emergency Provider Emergency Medicine; PCP Physician Assistant Medical; Visit Provider Physician Assistant Medical | DX: R11.2 Nausea with vomiting, unspecified (principal); R10.84 Generalized abdominal pain | CPT/HCPCS: 99232; 99239 ==